=== PATIENT | male | born 1960 | race Caucasian/White ===

== ENCOUNTER 2017-03-25 20:39 | Inpatient (IN) | payer MEDICARE, MEDICAID ==
--- NOTE | 2017-03-26 02:27 | ED Physician Chart ---
ED Chief Complaint/HPI - Patient Information Date Seen:: 03/26/17 Time Seen:: 02:22 Chief Complaint:: Pneumonia History of Present Illness:: CXR at [facility] showed right lower lobe pneumonia on 03/25/17. Allergies:: Allergies Allergy/AdvReac Type Severity Reaction Status Date / Time No Known Allergies Allergy Verified 03/26/17 01:39 Vitals:: Vital Signs - 8 hr 03/25/17 23:00 Temp 98.2 F HR 90 RR 20 BP 107/72 O2 Sat % 94 ED Septic Shock - <6hrs of presentation: Vital Signs: Vital Signs - 8 hr 03/25/17 23:00 Temp 98.2 F HR 90 RR 20 BP 107/72 O2 Sat % 94
[2017-03-26] MEDS ORDERED: Azithromycin 500 MG in Sodium Chloride 0.9% 250 ML IV SCH ×2 (02:30→18:00)
[2017-03-26 02:33] LABS: MANUAL DIFF REQUIRED? YES; MEAN PLATELET VOLUME 8.2 fl
[2017-03-26 02:35] LABS: HEMATOCRIT 35.8 % (41.0-60); HEMOGLOBIN 12.4 gm/dL (12-16); MEAN CELL VOLUME 97.3 fl (80-99); MEAN CORPUSCULAR HEMOGLOBIN 33.8 pg (26.0-30.0); MEAN CORPUSCULAR HGB CONC 34.7 pg (28.0-36.0); PLATELET COUNT 342 Th/cmm (150-400); RED BLOOD COUNT 3.68 Mil/cmm (4.30-5.70); RED CELL DISTRIBUTION WIDTH 12.1 % (11.5-20.0); WHITE BLOOD COUNT 7.2 Th/cmm (4.8-10.8)
[2017-03-26 02:47] LABS: ALB/GLOB RATIO 1.1 (1.0-1.8); ALBUMIN 3.1 gm/dL (4.2-5.5); ALKALINE PHOSPHATASE 41 U/L (34-104); ANION GAP 14.7 (7.0-16.0); BILIRUBIN,TOTAL 0.2 mg/dL (0.3-1.0); BUN - UREA NITROGEN 13 mg/dL (7-25); CALCIUM SERUM 8.1 mg/dL (8.6-10.3); CARBON DIOXIDE 19.5 mEq/L (21.0-31.0); CHLORIDE 101 mEq/L (98-107); CREATININE - SERUM 0.7 mg/dL (0.7-1.3); GFR AFRICAN-AMERICAN > 60.0 ml/min (>90); GFR NON AFRICAN-AMERICAN > 60.0 ml/min; GLUCOSE 90 mg/dL (70-105); POTASSIUM SERUM 3.2 mEq/L (3.5-5.1); SGOT 20 U/L (13-39); SGPT/ALT 19 U/L (7-52); SODIUM SERUM 132 mEq/L (136-145)
[2017-03-26 03:13] LABS: BAND NEUTROPHILE 7 % (0-10); LYMPHOCYTE 30 % (20-50); NEUTROPHILS 47 % (40-80); TOTAL CELLS COUNTED 100
[2017-03-26 03:14] LABS: EOSINOPHIL 2 % (0-5); MONOCYTE 14 % (2-10); PLATELET ESTIMATE ADEQUATE (NORMAL)
[2017-03-26] MEDS ORDERED: Albuterol/Ipratropium Neb 3 ML AERS HHN ONE ×2 (03:58→04:04)
[2017-03-26] MEDS: cefTRIAXone 1 GM in Sodium Chloride 0.9% 50 ML IV SCH (06:13)
[2017-03-26] MEDS: Albuterol/Ipratropium Neb 3 ML AERS HHN SCH ×6 (07:11→19:43)
[2017-03-26 07:57] LABS: EOSINOPHILE ABSOLUTE 0.1 Th/cmm (0.1-0.4); HEMATOCRIT 36.6 % (41.0-60); HEMOGLOBIN 12.4 gm/dL (12-16); LYMPHOCYTE ABSOLUTE 2.3 Th/cmm (1.5-3.0); MEAN CORPUSCULAR HEMOGLOBIN 33.2 pg (26.0-30.0); MEAN CORPUSCULAR HGB CONC 33.9 pg (28.0-36.0); MEAN PLATELET VOLUME 7.9 fl; MONOCYTE ABSOLUTE 1.4 Th/cmm (0.3-1.0); NEUTROPHILE ABSOLUTE 3.7 Th/cmm (1.8-8.0); PLATELET COUNT 347 Th/cmm (150-400); RED BLOOD COUNT 3.73 Mil/cmm (4.30-5.70); RED CELL DISTRIBUTION WIDTH 12.2 % (11.5-20.0); WHITE BLOOD COUNT 7.5 Th/cmm (4.8-10.8)
[2017-03-26 08:12] LABS: ANION GAP 10.1 (7.0-16.0); BUN - UREA NITROGEN 11 mg/dL (7-25); CALCIUM SERUM 8.1 mg/dL (8.6-10.3); CHLORIDE 103 mEq/L (98-107); CHOLESTEROL 110 mg/dL (<200); CREATININE - SERUM 0.7 mg/dL (0.7-1.3); GFR AFRICAN-AMERICAN > 60.0 ml/min (>90); GFR NON AFRICAN-AMERICAN > 60.0 ml/min; GLUCOSE 80 mg/dL (70-105); HDL -HIGH DENSITY LIPOPROTEIN 27 mg/dL (23-92); POTASSIUM SERUM 3.1 mEq/L (3.5-5.1); SODIUM SERUM 134 mEq/L (136-145); TRIGLYCERIDES 126 mg/dL (<150)
[2017-03-26] MEDS ORDERED: Potassium Chloride 20 mEq ER Tab PO ONE ×3 (08:29→17:00)
--- NOTE | 2017-03-26 16:26 | History and Physical ---
History of Present Illness - HPI Vital Signs: Last Vital Signs Temp 98.6 F 03/26/17 15:08 Pulse 89 03/26/17 15:08 Resp 14 03/26/17 15:08 BP 109/71 03/26/17 15:08 Pulse Ox 93 03/26/17 15:08 Family Medical History - Family Member Mother History Unknown: Yes - Medications Home Medications: Home Medication Medication Instructions Recorded Type Acetaminophen [Tylenol Extra 1,000 mg PO Q4HR PRN 03/26/17 History Strength] Acetaminophen [Tylenol] 650 mg PO Q4HR PRN 03/26/17 History Al Hyd/Mg Hyd/Simethicone [Maalox] 30 ml PO Q6HR PRN 03/26/17 History Bisacodyl [Dulcolax 10 Mg Supp] 10 mg RC PRN PRN 03/26/17 History Carbamazepine [Tegretol] 200 mg PO BID 03/26/17 History Cetirizine HCl [Zyrtec] 10 mg PO DAILY 03/26/17 History Divalproex ER [Depakote ER] 500 mg PO BID 03/26/17 History Docusate Sodium [Colace] 250 mg PO DAILY 03/26/17 History Fish Oil [[place] 3] 1,000 mg PO DAILY 03/26/17 History Fleet Enema [Fleet Enema] 135 ml RC Q48H PRN 03/26/17 History Haloperidol [Haldol*] 2.5 mg PO BID 03/26/17 History Magnesium Hydroxide [Milk of 30 ml PO HS PRN 03/26/17 History Magnesia] OLANZapine [ZyPREXA] 10 mg PO TID 03/26/17 History Psyllium Husk [Metamucil] 1 tbs PO BID 03/26/17 History - Allergies Allergies/Adverse Reactions: Allergies Allergy/AdvReac Type Severity Reaction Status Date / Time No Known Allergies Allergy Verified 03/26/17 01:39
[2017-03-26] MEDS ORDERED: Albuterol Nebulizer 2.5mg/3mL HHN PRN (16:34)
[2017-03-26] MEDS ORDERED: cefTRIAXone 1 GM in Sodium Chloride 0.9% 50 ML IV SCH (17:00)
[2017-03-26 19:51] LABS: INF A SCREEN NEG FOR INF A
[2017-03-26 19:52] LABS: INF B SCREEN NEG FOR INF B
[2017-03-26] MEDS ORDERED: Fleet Enema 135 mL RC PRN (21:36)
[2017-03-26] MEDS ORDERED: Acetaminophen 500 MG TAB PO PRN (21:36)
[2017-03-26] MEDS ORDERED: Maalox 30 mL Cup PO PRN (21:36)
[2017-03-26] MEDS ORDERED: Magnesium Hydroxide (MOM) 30 mL UDC PO PRN (21:36)
--- NOTE | 2017-03-27 04:22 | Consultation ---
DATE OF CONSULTATION: 03/26/2017 INFECTIOUS DISEASE CONSULTATION REFERRING PHYSICIAN: Ana Bourne MD. REASON FOR CONSULTATION: Right lower lobe pneumonia. HISTORY OF PRESENT ILLNESS: The patient is a 56-year-old male with a past medical history of dementia, depression, seizure disorder, brought in from nursing facility for chest x-ray, showing right lower lobe pneumonia. Otherwise, the patient is a poor historian, unable to give any history. On initial evaluation, the patient's temperature was 98.2 degree Fahrenheit and WBC count was 7200 with a normal differential. The patient was started on Rocephin and Zithromax. ID consult was called for antibiotic management. PAST MEDICAL HISTORY: Includes depression, dementia, anxiety disorder, and seizure disorder. ALLERGIES: NKDA. MEDICATIONS: As per medication reconciliation sheet. Antibiotic franklin, the patient is receiving Rocephin 1 gram IV daily and azithromycin 500 mg IV daily. SOCIAL HISTORY: The patient lives at nursing facility. No history of smoking, alcohol, or drug use. FAMILY HISTORY: Not available. REVIEW OF SYSTEMS: The patient is unable to give any history, but as per the records there is no fever documented. PHYSICAL EXAMINATION: VITAL SIGNS: Current vital signs shows temperature is 98.2, pulse 97, respirations 18, blood pressure 113/73, and oxygen saturation 93%. GENERAL: The patient is comfortable, lying in the bed, not in acute distress, well-nourished, and well-developed. HEENT: Head is normocephalic and atraumatic. Oral cavity moist. [employer] tongue. Eyes: No pallor, no icterus. Pupils: PERRLA, EOMI. NECK: Supple, no JVD, no carotid bruit. Trachea midline. CHEST: Bilateral breath sounds. Occasional crackles on the right side. HEART: S1 and S2 within normal limits. Regular rhythm. No murmur. No gallop. ABDOMEN: Soft, nontender, and nondistended. Bowel sounds present. EXTREMITIES: No cyanosis, no clubbing, and no edema. NEUROLOGIC: Alert and awake. Communications limited. LABORATORY DATA: Current lab shows WBC count of 7500, hemoglobin 12.4, hematocrit 36.6, and platelets are 347,000. Sodium is 134, potassium 3.1, chloride 103, bicarbonate is 24, BUN is 11, creatinine 0.7, and glucose is 80. valproate 45.7,carbamazepine 7.2. Influenza A and B is negative for influenza. IMPRESSION: 1. Right lower lobe pneumonia as per the chest x-ray report from the nursing facility. 2. Seizure disorder. 3. Dementia. 4. Depression. RECOMMENDATIONS AND PLAN: Continue Rocephin and Zithromax at this time. Antibiotics may be changed to Augmentin 875 mg p.o. twice a day for 10 days and Zithromax 500 mg IV or p.o. for 3 days from now. We will check the chest x-ray. Thank you, Dr. Bourne, for involving me in taking care of this patient. JOB# [id number] MEGAN
[2017-03-27] MEDS: Azithromycin 500 MG in Sodium Chloride 0.9% 250 ML IV SCH (05:11)
[2017-03-27 07:05] LABS: EOSINOPHILE ABSOLUTE 0.1 Th/cmm (0.1-0.4); HEMATOCRIT 34.9 % (41.0-60); LYMPHOCYTE ABSOLUTE 2.3 Th/cmm (1.5-3.0); MANUAL DIFF REQUIRED? YES; MEAN CELL VOLUME 97.9 fl (80-99); MEAN CORPUSCULAR HEMOGLOBIN 33.7 pg (26.0-30.0); MEAN CORPUSCULAR HGB CONC 34.5 pg (28.0-36.0); MEAN PLATELET VOLUME 8.3 fl; MONOCYTE ABSOLUTE 1.6 Th/cmm (0.3-1.0); NEUTROPHILE ABSOLUTE 4.7 Th/cmm (1.8-8.0); PLATELET COUNT 345 Th/cmm (150-400); RED BLOOD COUNT 3.56 Mil/cmm (4.30-5.70); WHITE BLOOD COUNT 8.7 Th/cmm (4.8-10.8)
[2017-03-27 07:30] LABS: ANION GAP 10.6 (7.0-16.0); BUN - UREA NITROGEN 8 mg/dL (7-25); CALCIUM SERUM 8.4 mg/dL (8.6-10.3); CARBON DIOXIDE 23.9 mEq/L (21.0-31.0); CHLORIDE 105 mEq/L (98-107); CREATININE - SERUM 0.5 mg/dL (0.7-1.3); GFR AFRICAN-AMERICAN > 60.0 ml/min (>90); GFR NON AFRICAN-AMERICAN > 60.0 ml/min; GLUCOSE 96 mg/dL (70-105); POTASSIUM SERUM 3.5 mEq/L (3.5-5.1); SODIUM SERUM 136 mEq/L (136-145)
[2017-03-27] MEDS: Albuterol/Ipratropium Neb 3 ML AERS HHN SCH ×4 (07:38→18:41)
[2017-03-27] MEDS: Fish Oil 1,000 MG SGL PO SCH (09:45)
[2017-03-27] MEDS: cefTRIAXone 1 GM in Sodium Chloride 0.9% 50 ML IV SCH (10:56)
--- NOTE | 2017-03-27 14:33 | History and Physical ---
History of Present Illness - HPI Chief Complaint: PNA HPI: THIS IS A 56 YEAR OLD MALE LONG-TERM RESIDENT ADMITTED TO [facility] DUE TO CXR SHOWING PNA AT THE SNF. PATIENT HAD X1 EPISODE OF FEVER AT THE SNF. Vital Signs: Last Vital Signs Temp 97.8 F 03/27/17 04:00 Pulse 70 03/27/17 13:39 Resp 18 03/27/17 13:39 BP 110/64 03/27/17 04:00 Pulse Ox 95 03/27/17 13:39 Past Medical History Other History: DEPRESSION DEMENTIA ANXIETY SEIZURE Family Medical History - Family Member Mother History Unknown: Yes Social History Smoke: No Alcohol: None Drugs: None Lives: Group Home - Medications Home Medications: Home Medication Medication Instructions Recorded Type Acetaminophen [Tylenol Extra 1,000 mg PO Q4HR PRN 03/26/17 History Strength] Acetaminophen [Tylenol] 650 mg PO Q4HR PRN 03/26/17 History Al Hyd/Mg Hyd/Simethicone [Maalox] 30 ml PO Q6HR PRN 03/26/17 History Bisacodyl [Dulcolax 10 Mg Supp] 10 mg RC PRN PRN 03/26/17 History Carbamazepine [Tegretol] 200 mg PO BID 03/26/17 History Cetirizine HCl [Zyrtec] 10 mg PO DAILY 03/26/17 History Divalproex ER [Depakote ER] 500 mg PO BID 03/26/17 History Docusate Sodium [Colace] 250 mg PO DAILY 03/26/17 History Fish Oil [[place]ur[place] 3] 1,000 mg PO DAILY 03/26/17 History Fleet Enema [Fleet Enema] 135 ml RC Q48H PRN 03/26/17 History Haloperidol [Haldol*] 2.5 mg PO BID 03/26/17 History Magnesium Hydroxide [Milk of 30 ml PO HS PRN 03/26/17 History Magnesia] OLANZapine [ZyPREXA] 10 mg PO TID 03/26/17 History Psyllium Husk [Metamucil] 1 tbs PO BID 03/26/17 History - Allergies Allergies/Adverse Reactions: Allergies Allergy/AdvReac Type Severity Reaction Status Date / Time No Known Allergies Allergy Verified 03/26/17 01:39 Review of Systems - Review of Systems Constitutional: Report: Weakness Eyes: Report: No Significant ENT: Report: No Significant Respiratory: Report: Cough Cardiovascular: Report: No Significant Gastrointestinal: Report: No Significant Genitourinary: Report: No Significant Musculoskeletal: Report: No Significant Skin: Report: No Significant Neurological: Report: Weakness - Lab Results All Lab Results last 24 hours: Laboratory Results - last 24 hr 03/26/17 03/27/17 03/27/17 18:28 05:00 05:00 WBC 8.7 RBC 3.56 L Hgb 12.0 Hct 34.9 L MCV 97.9 MCH 33.7 H MCHC Differential 34.5 RDW 12.0 Plt Count 345 MPV 8.3 Sodium 136 Potassium 3.5 Chloride 105 Carbon Dioxide 23.9 Anion Gap 10.6 BUN 8 Creatinine 0.5 L Est GFR ( Amer) > 60.0 Est GFR (Non-Af Amer) > 60.0 BUN/Creatinine Ratio 16.0 Glucose 96 Calcium 8.4 L Influenza A (Rapid) NEG FOR INF A Influenza B (Rapid) NEG FOR INF B - Assessment Assessment: RIGHT LOWER LOBE PNA SEIZURE DEMENTIA DEPRESSION - Plan Plan: CONTINUE IV ROCEPHIN AND ZITHROMAX SUPPLEMENTAL OXYGEN AND BRONCHODILATORS CONTINUE CURRENT ORDERS.
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
--- NOTE | 2017-03-27 23:52 | Infectious Disease Prog Note ---
Infectious Disease Subjective - Review of Systems Service Date: 03/27/17 Subjective: no fever. no SOB. Infectious Disease Objective - Results Result Diagrams: 03/27/17 05:00 03/27/17 05:00 Recent Labs: Laboratory Last Values WBC 8.7 Th/cmm (4.8-10.8) 03/27/17 05:00 RBC 3.56 Mil/cmm (4.30-5.70) L 03/27/17 05:00 Hgb 12.0 gm/dL (12-16) 03/27/17 05:00 Hct 34.9 % (41.0-60) L 03/27/17 05:00 MCV 97.9 fl (80-99) 03/27/17 05:00 MCH 33.7 pg (26.0-30.0) H 03/27/17 05:00 MCHC Differential 34.5 pg (28.0-36.0) 03/27/17 05:00 RDW 12.0 % (11.5-20.0) 03/27/17 05:00 Plt Count 345 Th/cmm (150-400) 03/27/17 05:00 MPV 8.3 fl 03/27/17 05:00 Band Neutrophils % 7 % (0-10) 03/26/17 02:10 Neutrophils (Manual) 47 % (40-80) 03/26/17 02:10 Lymphocytes 30 % (20-50) 03/26/17 02:10 Monocytes 14 % (2-10) H 03/26/17 02:10 Eosinophils 2 % (0-5) 03/26/17 02:10 Platelet Estimate ADEQUATE (NORMAL) 03/26/17 02:10 Sodium 136 mEq/L (136-145) 03/27/17 05:00 Potassium 3.5 mEq/L (3.5-5.1) 03/27/17 05:00 Chloride 105 mEq/L (98-107) 03/27/17 05:00 Carbon Dioxide 23.9 mEq/L (21.0-31.0) 03/27/17 05:00 Anion Gap 10.6 (7.0-16.0) 03/27/17 05:00 BUN 8 mg/dL (7-25) 03/27/17 05:00 Creatinine 0.5 mg/dL (0.7-1.3) L 03/27/17 05:00 Est GFR ( Amer) > 60.0 ml/min (>90) 03/27/17 05:00 Est GFR (Non-Af Amer) > 60.0 ml/min 03/27/17 05:00 BUN/Creatinine Ratio 16.0 03/27/17 05:00 Glucose 96 mg/dL (70-105) 03/27/17 05:00 Calcium 8.4 mg/dL (8.6-10.3) L 03/27/17 05:00 Total Bilirubin 0.2 mg/dL (0.3-1.0) L 03/26/17 02:10 AST 20 U/L (13-39) 03/26/17 02:10 ALT 19 U/L (7-52) 03/26/17 02:10 Alkaline Phosphatase 41 U/L (34-104) 03/26/17 02:10 Total Protein 6.0 gm/dL (6.0-8.3) 03/26/17 02:10 Albumin 3.1 gm/dL (4.2-5.5) L 03/26/17 02:10 Globulin 2.9 gm/dL 03/26/17 02:10 Albumin/Globulin Ratio 1.1 (1.0-1.8) 03/26/17 02:10 Triglycerides 126 mg/dL (<150) 03/26/17 07:40 Cholesterol 110 mg/dL (<200) 03/26/17 07:40 LDL Cholesterol Direct 68 mg/dL (75-193) L 03/26/17 07:40 HDL Cholesterol 27 mg/dL (23-92) 03/26/17 07:40 TSH 1.17 uIU/ml (0.34-5.60) 03/26/17 07:40 Valproic Acid 45.7 ug/mL (50.0-100.0) L 03/26/17 02:10 Carbamazepine 7.2 ug/ml (4.0-12.0) 03/26/17 02:10 Influenza A (Rapid) NEG FOR INF A 03/26/17 18:28 Influenza B (Rapid) NEG FOR INF B 03/26/17 18:28 - Physical Exam Vitals and I&O: Vital Signs Temp 99 F 01/04/18 20:00 Pulse 97 03/27/17 20:00 Resp 18 03/27/17 20:00 BP 105/63 03/27/17 20:00 Pulse Ox 94 03/27/17 20:00 Intake & Output 03/27/17 03/27/17 03/28/17 06:59 18:59 06:59 Intake Total 500 750 Balance 500 750 Weight (lbs) 73.936 kg 73.936 kg Intake: Intake, IV Amount 250 50 Azithromycin 500 mg In 250 Sodium Chloride 0.9% 250 ml @ 250 mls/hr IV Q24HR [facility] Rx#:[id number] cefTRIAXone 1 gm In 50 Sodium Chloride 0.9% 50 ml @ 100 mls/hr IV Q24HR [facility] Rx#:[id number] Oral 250 700 Other: # Voids 2 3 # Bowel Movements 0 0 Stool Characteristics Soft Soft Formed Formed Brown Brown Active Medications: Current Medications Acetaminophen (Tylenol) 650 mg PO Q4HR PRN PRN Reason: Pain or Fever >101 Stop: 05/25/17 21:35 Last Admin: 03/27/17 09:53 Dose: 650 mg Acetaminophen (Tylenol Extra Strength) 1,000 mg PO Q4HR PRN PRN Reason: Pain (Moderate) Stop: 05/25/17 21:35 Al Hydrox/Mg Hydrox/Simethicone (Maalox) 30 ml PO Q6HR PRN PRN Reason: Heartburn Stop: 05/25/17 21:35 Albuterol Sulfate (Albuterol 2.5mg/3ml Neb Ud) 2.5 mg HHN Q4HRT PRN PRN Reason: Wheezing Stop: 05/25/17 16:33 Last Admin: 03/26/17 23:09 Dose: 2.5 mg Albuterol/Ipratropium (Duoneb Neb) 3 ml HHN [id number] JUANITA Stop: 05/25/17 06:59 Last Admin: 03/27/17 18:41 Dose: 3 ml Bisacodyl (Dulcolax 10 Mg Supp) 10 mg RC PRN PRN PRN Reason: Constipation Stop: 05/25/17 21:35 Carbamazepine (Tegretol) 200 mg PO BID JUANITA PRN Reason: Protocol Stop: 05/26/17 08:59 Last Admin: 03/27/17 17:59 Dose: 200 mg Divalproex Sodium (Depakote Er) 500 mg PO BID JUANITA PRN Reason: Protocol Stop: 05/26/17 08:59 Last Admin: 03/27/17 17:59 Dose: 500 mg Docusate Sodium (Colace) 250 mg PO DAILY JUANITA Stop: 05/26/17 08:59 Last Admin: 03/27/17 09:46 Dose: 250 mg Fish Oil ([place] 3) 1,000 mg PO DAILY JUANITA Stop: 05/26/17 08:59 Last Admin: 03/27/17 09:45 Dose: 1,000 mg Haloperidol (Haldol) 2.5 mg PO BID JUANITA PRN Reason: Protocol Stop: 05/26/17 08:59 Last Admin: 03/27/17 17:59 Dose: 2.5 mg Azithromycin 500 mg/ Sodium (Chloride) 250 mls @ 250 mls/hr IV Q24HR JUANITA Stop: 05/26/17 04:59 Last Infusion: 03/27/17 06:16 Dose: Infused Ceftriaxone Sodium 1 gm/ (Sodium Chloride) 50 mls @ 100 mls/hr IV Q24HR JUANITA Stop: 05/25/17 05:59 Last Infusion: 03/27/17 12:30 Dose: Infused Loratadine (Claritin) 10 mg PO DAILY JUANITA Stop: 05/26/17 08:59 Last Admin: 03/27/17 09:46 Dose: 10 mg Lorazepam (Ativan) 1 mg IVP Q4HR PRN; Protocol PRN Reason: Agitation Stop: 05/25/17 16:35 Last Admin: 03/27/17 00:11 Dose: 1 mg Magnesium Hydroxide (Milk Of Magnesia) 30 ml PO HS PRN PRN Reason: Constipation Stop: 05/25/17 21:35 Sodium Phosphate (Fleet Enema) 135 ml RC Q48H PRN PRN Reason: Constipation Stop: 05/25/17 21:35 General: no acute distress, well developed, well nourished HEENT: atraumatic, normocephalic, PERRLA Neck: supple, no thyromegaly Cardiovascular: S1S2, regular Lungs: clear to percussion, rhonchi Abdomen: soft, no tender, no distended Extremities: no cyanosis, no clubbing, no edema Neurological: other (confused) Infectious Disease Assmt/Plan - Assessment Assessment: IMPRESSION: 1. Right lower lobe pneumonia as per the chest x-ray report from the nursing facility. 2. Seizure disorder. 3. Dementia. 4. Depression. RECOMMENDATIONS AND PLAN: Continue Rocephin and Zithromax at this time. Antibiotics may be changed to Augmentin 875 mg p.o. twice a day for 10 days and Zithromax 500 mg IV or p.o. for 2 days from now.
[2017-03-28] MEDS: Azithromycin 500 MG in Sodium Chloride 0.9% 250 ML IV SCH (04:26)
[2017-03-28] MEDS: cefTRIAXone 1 GM in Sodium Chloride 0.9% 50 ML IV SCH (06:14)
[2017-03-28] MEDS: Albuterol/Ipratropium Neb 3 ML AERS HHN SCH ×4 (08:03→18:32)
[2017-03-28] MEDS: Fish Oil 1,000 MG SGL PO SCH (09:11)
[2017-03-28] MEDS ORDERED: Sodium Chloride 0.9% 1,000 ML IV ONE (11:53)
--- NOTE | 2017-03-28 12:20 | Internal Medicine Prog Note ---
Internal Medicine Subjective - Subjective Service Date: 03/28/17 Patient seen and examined:: with staff Patient is:: awake Per staff patient has:: no adverse event Internal Medicine Objective - Results Result Diagrams: 03/27/17 05:00 03/27/17 05:00 Recent Labs: Laboratory Last Values WBC 8.7 Th/cmm (4.8-10.8) 03/27/17 05:00 RBC 3.56 Mil/cmm (4.30-5.70) L 03/27/17 05:00 Hgb 12.0 gm/dL (12-16) 03/27/17 05:00 Hct 34.9 % (41.0-60) L 03/27/17 05:00 MCV 97.9 fl (80-99) 03/27/17 05:00 MCH 33.7 pg (26.0-30.0) H 03/27/17 05:00 MCHC Differential 34.5 pg (28.0-36.0) 03/27/17 05:00 RDW 12.0 % (11.5-20.0) 03/27/17 05:00 Plt Count 345 Th/cmm (150-400) 03/27/17 05:00 MPV 8.3 fl 03/27/17 05:00 Band Neutrophils % 7 % (0-10) 03/26/17 02:10 Neutrophils (Manual) 47 % (40-80) 03/26/17 02:10 Lymphocytes 30 % (20-50) 03/26/17 02:10 Monocytes 14 % (2-10) H 03/26/17 02:10 Eosinophils 2 % (0-5) 03/26/17 02:10 Platelet Estimate ADEQUATE (NORMAL) 03/26/17 02:10 Sodium 136 mEq/L (136-145) 03/27/17 05:00 Potassium 3.5 mEq/L (3.5-5.1) 03/27/17 05:00 Chloride 105 mEq/L (98-107) 03/27/17 05:00 Carbon Dioxide 23.9 mEq/L (21.0-31.0) 03/27/17 05:00 Anion Gap 10.6 (7.0-16.0) 03/27/17 05:00 BUN 8 mg/dL (7-25) 03/27/17 05:00 Creatinine 0.5 mg/dL (0.7-1.3) L 03/27/17 05:00 Est GFR ( Amer) > 60.0 ml/min (>90) 03/27/17 05:00 Est GFR (Non-Af Amer) > 60.0 ml/min 03/27/17 05:00 BUN/Creatinine Ratio 16.0 03/27/17 05:00 Glucose 96 mg/dL (70-105) 03/27/17 05:00 Calcium 8.4 mg/dL (8.6-10.3) L 03/27/17 05:00 Total Bilirubin 0.2 mg/dL (0.3-1.0) L 03/26/17 02:10 AST 20 U/L (13-39) 03/26/17 02:10 ALT 19 U/L (7-52) 03/26/17 02:10 Alkaline Phosphatase 41 U/L (34-104) 03/26/17 02:10 Total Protein 6.0 gm/dL (6.0-8.3) 03/26/17 02:10 Albumin 3.1 gm/dL (4.2-5.5) L 03/26/17 02:10 Globulin 2.9 gm/dL 03/26/17 02:10 Albumin/Globulin Ratio 1.1 (1.0-1.8) 03/26/17 02:10 Triglycerides 126 mg/dL (<150) 03/26/17 07:40 Cholesterol 110 mg/dL (<200) 03/26/17 07:40 LDL Cholesterol Direct 68 mg/dL (75-193) L 03/26/17 07:40 HDL Cholesterol 27 mg/dL (23-92) 03/26/17 07:40 TSH 1.17 uIU/ml (0.34-5.60) 03/26/17 07:40 Valproic Acid 45.7 ug/mL (50.0-100.0) L 03/26/17 02:10 Carbamazepine 7.2 ug/ml (4.0-12.0) 03/26/17 02:10 Influenza A (Rapid) NEG FOR INF A 03/26/17 18:28 Influenza B (Rapid) NEG FOR INF B 03/26/17 18:28 - Physical Exam Vitals and I&O: Vital Signs Temp 97.8 F 03/28/17 11:48 Pulse 79 03/28/17 11:48 Resp 18 03/28/17 11:48 BP 98/49 03/28/17 11:48 Pulse Ox 93 03/28/17 11:48 Intake & Output 03/27/17 03/28/17 03/28/17 18:59 06:59 18:59 Intake Total 750 300 Balance 750 300 Weight (lbs) 163 lb 156 lb 8 oz 156 lb 8 oz Intake: Intake, IV Amount 50 300 Azithromycin 500 mg In 250 Sodium Chloride 0.9% 250 ml @ 250 mls/hr IV Q24HR [facility] Rx#:[id number] cefTRIAXone 1 gm In 50 50 Sodium Chloride 0.9% 50 ml @ 100 mls/hr IV Q24HR [facility] Rx#:[id number] Oral 700 Other: # Voids 3 2 # Bowel Movements 0 1 Stool Characteristics Soft Soft Soft Formed Formed Formed Brown Brown Brown Active Medications: Current Medications Acetaminophen (Tylenol) 650 mg PO Q4HR PRN PRN Reason: Pain or Fever >101 Stop: 05/25/17 21:35 Last Admin: 03/27/17 09:53 Dose: 650 mg Acetaminophen (Tylenol Extra Strength) 1,000 mg PO Q4HR PRN PRN Reason: Pain (Moderate) Stop: 05/25/17 21:35 Al Hydrox/Mg Hydrox/Simethicone (Maalox) 30 ml PO Q6HR PRN PRN Reason: Heartburn Stop: 05/25/17 21:35 Albuterol Sulfate (Albuterol 2.5mg/3ml Neb Ud) 2.5 mg HHN Q4HRT PRN PRN Reason: Wheezing Stop: 05/25/17 16:33 Last Admin: 03/26/17 23:09 Dose: 2.5 mg Albuterol/Ipratropium (Duoneb Neb) 3 ml HHN [id number] [facility] Stop: 05/25/17 06:59 Last Admin: 03/28/17 08:03 Dose: 3 ml Bisacodyl (Dulcolax 10 Mg Supp) 10 mg RC PRN PRN PRN Reason: Constipation Stop: 05/25/17 21:35 Carbamazepine (Tegretol) 200 mg PO BID [facility] PRN Reason: Protocol Stop: 03/05/18 08:59 Last Admin: 03/28/17 09:12 Dose: 200 mg Divalproex Sodium (Depakote Er) 500 mg PO BID JUANITA PRN Reason: Protocol Stop: 05/26/17 08:59 Last Admin: 03/28/17 09:12 Dose: 500 mg Docusate Sodium (Colace) 250 mg PO DAILY JUANITA Stop: 05/26/17 08:59 Last Admin: 03/28/17 09:11 Dose: 250 mg Fish Oil (Flor[place] 3) 1,000 mg PO DAILY JUANITA Stop: 05/26/17 08:59 Last Admin: 03/28/17 09:11 Dose: 1,000 mg Haloperidol (Haldol) 2.5 mg PO BID JUANITA PRN Reason: Protocol Stop: 05/26/17 08:59 Last Admin: 03/28/17 09:11 Dose: 2.5 mg Azithromycin 500 mg/ Sodium (Chloride) 250 mls @ 250 mls/hr IV Q24HR JUANITA Stop: 05/26/17 04:59 Last Infusion: 03/28/17 07:30 Dose: Infused Ceftriaxone Sodium 1 gm/ (Sodium Chloride) 50 mls @ 100 mls/hr IV Q24HR JUANITA Stop: 05/25/17 05:59 Last Infusion: 03/28/17 09:12 Dose: Infused Loratadine (Claritin) 10 mg PO DAILY [facility] Stop: 05/26/17 08:59 Last Admin: 03/28/17 09:12 Dose: 10 mg Lorazepam (Ativan) 1 mg IVP Q4HR PRN; Protocol PRN Reason: Agitation Stop: 05/25/17 16:35 Last Admin: 03/27/17 00:11 Dose: 1 mg Magnesium Hydroxide (Milk Of Magnesia) 30 ml PO HS PRN PRN Reason: Constipation Stop: 05/25/17 21:35 Sodium Phosphate (Fleet Enema) 135 ml RC Q48H PRN PRN Reason: Constipation Stop: 05/25/17 21:35 General: alert HEENT: NC/AT, PERRLA Neck: Supple Lungs: CTAB Cardiovascular: RRR Abdomen: soft, non-tender, non-distended, positive bowel sound Internal Medicine Assmt/Plan - Assessment Assessment: RIGHT LOWER LOBE PNA SEIZURE DEMENTIA DEPRESSION - Plan Plan: CONTINUE IV ROCEPHIN AND ZITHROMAX SUPPLEMENTAL OXYGEN AND BRONCHODILATORS CONTINUE CURRENT ORDERS.
--- NOTE | 2017-03-28 15:02 | Infectious Disease Prog Note ---
Infectious Disease Subjective - Review of Systems Service Date: 03/28/17 Subjective: no fever. no SOB. Infectious Disease Objective - Results Result Diagrams: 03/27/17 05:00 03/27/17 05:00 Recent Labs: Laboratory Last Values WBC 8.7 Th/cmm (4.8-10.8) 03/27/17 05:00 RBC 3.56 Mil/cmm (4.30-5.70) L 03/27/17 05:00 Hgb 12.0 gm/dL (12-16) 03/27/17 05:00 Hct 34.9 % (41.0-60) L 03/27/17 05:00 MCV 97.9 fl (80-99) 03/27/17 05:00 MCH 33.7 pg (26.0-30.0) H 03/27/17 05:00 MCHC Differential 34.5 pg (28.0-36.0) 03/27/17 05:00 RDW 12.0 % (11.5-20.0) 03/27/17 05:00 Plt Count 345 Th/cmm (150-400) 03/27/17 05:00 MPV 8.3 fl 03/27/17 05:00 Band Neutrophils % 7 % (0-10) 03/26/17 02:10 Neutrophils (Manual) 47 % (40-80) 03/26/17 02:10 Lymphocytes 30 % (20-50) 03/26/17 02:10 Monocytes 14 % (2-10) H 03/26/17 02:10 Eosinophils 2 % (0-5) 03/26/17 02:10 Platelet Estimate ADEQUATE (NORMAL) 03/26/17 02:10 Sodium 136 mEq/L (136-145) 03/27/17 05:00 Potassium 3.5 mEq/L (3.5-5.1) 03/27/17 05:00 Chloride 105 mEq/L (98-107) 03/27/17 05:00 Carbon Dioxide 23.9 mEq/L (21.0-31.0) 03/27/17 05:00 Anion Gap 10.6 (7.0-16.0) 03/27/17 05:00 BUN 8 mg/dL (7-25) 03/27/17 05:00 Creatinine 0.5 mg/dL (0.7-1.3) L 03/27/17 05:00 Est GFR ( Amer) > 60.0 ml/min (>90) 03/27/17 05:00 Est GFR (Non-Af Amer) > 60.0 ml/min 03/27/17 05:00 BUN/Creatinine Ratio 16.0 03/27/17 05:00 Glucose 96 mg/dL (70-105) 03/27/17 05:00 Calcium 8.4 mg/dL (8.6-10.3) L 03/27/17 05:00 Total Bilirubin 0.2 mg/dL (0.3-1.0) L 03/26/17 02:10 AST 20 U/L (13-39) 03/26/17 02:10 ALT 19 U/L (7-52) 03/26/17 02:10 Alkaline Phosphatase 41 U/L (34-104) 03/26/17 02:10 Total Protein 6.0 gm/dL (6.0-8.3) 03/26/17 02:10 Albumin 3.1 gm/dL (4.2-5.5) L 03/26/17 02:10 Globulin 2.9 gm/dL 03/26/17 02:10 Albumin/Globulin Ratio 1.1 (1.0-1.8) 03/26/17 02:10 Triglycerides 126 mg/dL (<150) 03/26/17 07:40 Cholesterol 110 mg/dL (<200) 03/26/17 07:40 LDL Cholesterol Direct 68 mg/dL (75-193) L 03/26/17 07:40 HDL Cholesterol 27 mg/dL (23-92) 03/26/17 07:40 TSH 1.17 uIU/ml (0.34-5.60) 03/26/17 07:40 Valproic Acid 45.7 ug/mL (50.0-100.0) L 03/26/17 02:10 Carbamazepine 7.2 ug/ml (4.0-12.0) 03/26/17 02:10 Influenza A (Rapid) NEG FOR INF A 03/26/17 18:28 Influenza B (Rapid) NEG FOR INF B 03/26/17 18:28 - Physical Exam Vitals and I&O: Vital Signs Temp 97.8 F 03/28/17 11:48 Pulse 92 03/28/17 13:18 Resp 18 03/28/17 13:18 BP 98/49 03/28/17 11:48 Pulse Ox 96 03/28/17 13:18 Intake & Output 03/27/17 03/28/17 03/28/17 18:59 06:59 18:59 Intake Total 750 300 Balance 750 300 Weight (lbs) 73.936 kg 70.987 kg 70.987 kg Intake: Intake, IV Amount 50 300 Azithromycin 500 mg In 250 Sodium Chloride 0.9% 250 ml @ 250 mls/hr IV Q24HR [facility] Rx#:[id number] cefTRIAXone 1 gm In 50 50 Sodium Chloride 0.9% 50 ml @ 100 mls/hr IV Q24HR [facility] Rx#:[id number] Oral 700 Other: # Voids 3 2 # Bowel Movements 0 1 Stool Characteristics Soft Soft Soft Formed Formed Formed Brown Brown Brown Active Medications: Current Medications Acetaminophen (Tylenol) 650 mg PO Q4HR PRN PRN Reason: Pain or Fever >101 Stop: 05/25/17 21:35 Last Admin: 03/27/17 09:53 Dose: 650 mg Acetaminophen (Tylenol Extra Strength) 1,000 mg PO Q4HR PRN PRN Reason: Pain (Moderate) Stop: 05/25/17 21:35 Al Hydrox/Mg Hydrox/Simethicone (Maalox) 30 ml PO Q6HR PRN PRN Reason: Heartburn Stop: 05/25/17 21:35 Albuterol Sulfate (Albuterol 2.5mg/3ml Neb Ud) 2.5 mg HHN Q4HRT PRN PRN Reason: Wheezing Stop: 05/25/17 16:33 Last Admin: 03/26/17 23:09 Dose: 2.5 mg Albuterol/Ipratropium (Duoneb Neb) 3 ml HHN [id number] JUANITA Stop: 05/25/17 06:59 Last Admin: 03/28/17 13:17 Dose: 3 ml Bisacodyl (Dulcolax 10 Mg Supp) 10 mg RC PRN PRN PRN Reason: Constipation Stop: 05/25/17 21:35 Carbamazepine (Tegretol) 200 mg PO BID JUANITA PRN Reason: Protocol Stop: 05/26/17 08:59 Last Admin: 03/28/17 09:12 Dose: 200 mg Divalproex Sodium (Depakote Er) 500 mg PO BID JUANITA PRN Reason: Protocol Stop: 05/26/17 08:59 Last Admin: 03/28/17 09:12 Dose: 500 mg Docusate Sodium (Colace) 250 mg PO DAILY JUANITA Stop: 05/26/17 08:59 Last Admin: 03/28/17 09:11 Dose: 250 mg Fish Oil ([place] 3) 1,000 mg PO DAILY JUANITA Stop: 05/26/17 08:59 Last Admin: 03/28/17 09:11 Dose: 1,000 mg Haloperidol (Haldol) 2.5 mg PO BID JUANITA PRN Reason: Protocol Stop: 05/26/17 08:59 Last Admin: 03/28/17 09:11 Dose: 2.5 mg Azithromycin 500 mg/ Sodium (Chloride) 250 mls @ 250 mls/hr IV Q24HR JUANITA Stop: 05/26/17 04:59 Last Infusion: 03/28/17 07:30 Dose: Infused Ceftriaxone Sodium 1 gm/ (Sodium Chloride) 50 mls @ 100 mls/hr IV Q24HR JUANITA Stop: 05/25/17 05:59 Last Infusion: 03/28/17 09:12 Dose: Infused Loratadine (Claritin) 10 mg PO DAILY JUANITA Stop: 05/26/17 08:59 Last Admin: 03/28/17 09:12 Dose: 10 mg Lorazepam (Ativan) 1 mg IVP Q4HR PRN; Protocol PRN Reason: Agitation Stop: 05/25/17 16:35 Last Admin: 03/27/17 00:11 Dose: 1 mg Magnesium Hydroxide (Milk Of Magnesia) 30 ml PO HS PRN PRN Reason: Constipation Stop: 05/25/17 21:35 Sodium Phosphate (Fleet Enema) 135 ml RC Q48H PRN PRN Reason: Constipation Stop: 05/25/17 21:35 General: no acute distress, well developed, well nourished HEENT: atraumatic, normocephalic, PERRLA, EOMI, moist mucous membrane Neck: supple, no thyromegaly, no lymphadenopathy Cardiovascular: S1S2, regular Lungs: clear to auscultation bilaterally, clear to percussion Abdomen: soft, no tender, no distended Extremities: no cyanosis, no clubbing, no edema Neurological: awake, alert, oriented Infectious Disease Assmt/Plan - Assessment Assessment: IMPRESSION: 1. Right lower lobe pneumonia as per the chest x-ray report from the nursing facility. 2. Seizure disorder. 3. Dementia. 4. Depression. RECOMMENDATIONS AND PLAN: Continue Rocephin and Zithromax at this time. Antibiotics may be changed to Augmentin 875 mg p.o. twice a day for 10 days and Zithromax 500 mg IV or p.o. for 2 days from now.
--- NOTE | 2017-03-28 15:03 | Infectious Disease Prog Note ---
Infectious Disease Subjective - Review of Systems Service Date: 03/28/17 Subjective: no fever. no SOB. Infectious Disease Objective - Results Result Diagrams: 03/27/17 05:00 03/27/17 05:00 Recent Labs: Laboratory Last Values WBC 8.7 Th/cmm (4.8-10.8) 03/27/17 05:00 RBC 3.56 Mil/cmm (4.30-5.70) L 03/27/17 05:00 Hgb 12.0 gm/dL (12-16) 03/27/17 05:00 Hct 34.9 % (41.0-60) L 03/27/17 05:00 MCV 97.9 fl (80-99) 03/27/17 05:00 MCH 33.7 pg (26.0-30.0) H 03/27/17 05:00 MCHC Differential 34.5 pg (28.0-36.0) 03/27/17 05:00 RDW 12.0 % (11.5-20.0) 03/27/17 05:00 Plt Count 345 Th/cmm (150-400) 03/27/17 05:00 MPV 8.3 fl 03/27/17 05:00 Band Neutrophils % 7 % (0-10) 03/26/17 02:10 Neutrophils (Manual) 47 % (40-80) 03/26/17 02:10 Lymphocytes 30 % (20-50) 03/26/17 02:10 Monocytes 14 % (2-10) H 03/26/17 02:10 Eosinophils 2 % (0-5) 03/26/17 02:10 Platelet Estimate ADEQUATE (NORMAL) 03/26/17 02:10 Sodium 136 mEq/L (136-145) 03/27/17 05:00 Potassium 3.5 mEq/L (3.5-5.1) 03/27/17 05:00 Chloride 105 mEq/L (98-107) 03/27/17 05:00 Carbon Dioxide 23.9 mEq/L (21.0-31.0) 03/27/17 05:00 Anion Gap 10.6 (7.0-16.0) 03/27/17 05:00 BUN 8 mg/dL (7-25) 03/27/17 05:00 Creatinine 0.5 mg/dL (0.7-1.3) L 03/27/17 05:00 Est GFR ( Amer) > 60.0 ml/min (>90) 03/27/17 05:00 Est GFR (Non-Af Amer) > 60.0 ml/min 03/27/17 05:00 BUN/Creatinine Ratio 16.0 03/27/17 05:00 Glucose 96 mg/dL (70-105) 03/27/17 05:00 Calcium 8.4 mg/dL (8.6-10.3) L 03/27/17 05:00 Total Bilirubin 0.2 mg/dL (0.3-1.0) L 03/26/17 02:10 AST 20 U/L (13-39) 03/26/17 02:10 ALT 19 U/L (7-52) 03/26/17 02:10 Alkaline Phosphatase 41 U/L (34-104) 03/26/17 02:10 Total Protein 6.0 gm/dL (6.0-8.3) 03/26/17 02:10 Albumin 3.1 gm/dL (4.2-5.5) L 03/26/17 02:10 Globulin 2.9 gm/dL 03/26/17 02:10 Albumin/Globulin Ratio 1.1 (1.0-1.8) 03/26/17 02:10 Triglycerides 126 mg/dL (<150) 03/26/17 07:40 Cholesterol 110 mg/dL (<200) 03/26/17 07:40 LDL Cholesterol Direct 68 mg/dL (75-193) L 03/26/17 07:40 HDL Cholesterol 27 mg/dL (23-92) 03/26/17 07:40 TSH 1.17 uIU/ml (0.34-5.60) 03/26/17 07:40 Valproic Acid 45.7 ug/mL (50.0-100.0) L 03/26/17 02:10 Carbamazepine 7.2 ug/ml (4.0-12.0) 03/26/17 02:10 Influenza A (Rapid) NEG FOR INF A 03/26/17 18:28 Influenza B (Rapid) NEG FOR INF B 03/26/17 18:28 - Physical Exam Vitals and I&O: Vital Signs Temp 97.8 F 03/28/17 11:48 Pulse 92 03/28/17 13:18 Resp 18 03/28/17 13:18 BP 98/49 03/28/17 11:48 Pulse Ox 96 03/28/17 13:18 Intake & Output 03/27/17 03/28/17 03/28/17 18:59 06:59 18:59 Intake Total 750 300 Balance 750 300 Weight (lbs) 73.936 kg 70.987 kg 70.987 kg Intake: Intake, IV Amount 50 300 Azithromycin 500 mg In 250 Sodium Chloride 0.9% 250 ml @ 250 mls/hr IV Q24HR [facility] Rx#:[id number] cefTRIAXone 1 gm In 50 50 Sodium Chloride 0.9% 50 ml @ 100 mls/hr IV Q24HR [facility] Rx#:[id number] Oral 700 Other: # Voids 3 2 # Bowel Movements 0 1 Stool Characteristics Soft Soft Soft Formed Formed Formed Brown Brown Brown Active Medications: Current Medications Acetaminophen (Tylenol) 650 mg PO Q4HR PRN PRN Reason: Pain or Fever >101 Stop: 05/25/17 21:35 Last Admin: 03/27/17 09:53 Dose: 650 mg Acetaminophen (Tylenol Extra Strength) 1,000 mg PO Q4HR PRN PRN Reason: Pain (Moderate) Stop: 05/25/17 21:35 Al Hydrox/Mg Hydrox/Simethicone (Maalox) 30 ml PO Q6HR PRN PRN Reason: Heartburn Stop: 05/25/17 21:35 Albuterol Sulfate (Albuterol 2.5mg/3ml Neb Ud) 2.5 mg HHN Q4HRT PRN PRN Reason: Wheezing Stop: 05/25/17 16:33 Last Admin: 03/26/17 23:09 Dose: 2.5 mg Albuterol/Ipratropium (Duoneb Neb) 3 ml HHN [id number] JUANITA Stop: 05/25/17 06:59 Last Admin: 03/28/17 13:17 Dose: 3 ml Bisacodyl (Dulcolax 10 Mg Supp) 10 mg RC PRN PRN PRN Reason: Constipation Stop: 05/25/17 21:35 Carbamazepine (Tegretol) 200 mg PO BID JUANITA PRN Reason: Protocol Stop: 05/26/17 08:59 Last Admin: 03/28/17 09:12 Dose: 200 mg Divalproex Sodium (Depakote Er) 500 mg PO BID JUANITA PRN Reason: Protocol Stop: 05/26/17 08:59 Last Admin: 03/28/17 09:12 Dose: 500 mg Docusate Sodium (Colace) 250 mg PO DAILY JUANITA Stop: 05/26/17 08:59 Last Admin: 03/28/17 09:11 Dose: 250 mg Fish Oil ([place] 3) 1,000 mg PO DAILY JUANITA Stop: 05/26/17 08:59 Last Admin: 03/28/17 09:11 Dose: 1,000 mg Haloperidol (Haldol) 2.5 mg PO BID JUANITA PRN Reason: Protocol Stop: 05/26/17 08:59 Last Admin: 03/28/17 09:11 Dose: 2.5 mg Azithromycin 500 mg/ Sodium (Chloride) 250 mls @ 250 mls/hr IV Q24HR JUANITA Stop: 05/26/17 04:59 Last Infusion: 03/28/17 07:30 Dose: Infused Ceftriaxone Sodium 1 gm/ (Sodium Chloride) 50 mls @ 100 mls/hr IV Q24HR JUANITA Stop: 05/25/17 05:59 Last Infusion: 03/28/17 09:12 Dose: Infused Loratadine (Claritin) 10 mg PO DAILY JUANITA Stop: 05/26/17 08:59 Last Admin: 03/28/17 09:12 Dose: 10 mg Lorazepam (Ativan) 1 mg IVP Q4HR PRN; Protocol PRN Reason: Agitation Stop: 05/25/17 16:35 Last Admin: 03/27/17 00:11 Dose: 1 mg Magnesium Hydroxide (Milk Of Magnesia) 30 ml PO HS PRN PRN Reason: Constipation Stop: 05/25/17 21:35 Sodium Phosphate (Fleet Enema) 135 ml RC Q48H PRN PRN Reason: Constipation Stop: 05/25/17 21:35 General: no acute distress, well developed, well nourished HEENT: atraumatic, normocephalic, PERRLA Neck: supple, no thyromegaly Cardiovascular: S1S2, regular Lungs: clear to auscultation bilaterally, clear to percussion Abdomen: soft, no tender, no distended Extremities: no cyanosis, no clubbing, no edema Neurological: awake, alert, oriented Skin: intact Infectious Disease Assmt/Plan - Assessment Assessment: IMPRESSION: 1. Right lower lobe pneumonia as per the chest x-ray report from the nursing facility. 2. Seizure disorder. 3. Dementia. 4. Depression. RECOMMENDATIONS AND PLAN: Continue Rocephin and Zithromax at this time. Antibiotics may be changed to Augmentin 875 mg p.o. twice a day for 9 days and Zithromax 500 mg IV or p.o. for 1 days from now.
[2017-03-28] MEDS ORDERED: Sodium Chloride 0.9% 1,000 ML IV SCH (15:45)
[2017-03-28] MEDS ORDERED: Probiotic Screen MC PRN (16:05)
[2017-03-29] MEDS ORDERED: Lactobacillus Rhamnosus GG 15 Billion CFU CAP.SPRINK PO SCH (09:00)
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
== END 2017-03-28 21:02 | disposition home or self-care (01) | DRG 193 ==
LOC: ER 20:39 → TELE 03-26 15:24
PROVIDERS: ADMIT Internal Medicine; ATTEND Internal Medicine
DX: J18.1 Lobar pneumonia, unspecified organism (principal); E41 Nutritional marasmus; F03.90 Unspecified dementia, unspecified severity, without behavioral disturbance, psychotic disturbance, mood disturbance, and anxiety; E87.1 Hypo-osmolality and hyponatremia; E87.6 Hypokalemia; F32.9 Major depressive disorder, single episode, unspecified; G40.909 Epilepsy, unspecified, not intractable, without status epilepticus; F41.9 Anxiety disorder, unspecified; F39 Unspecified mood [affective] disorder; Z87.820 Personal history of traumatic brain injury; Z79.899 Other long term (current) drug therapy
CPT/HCPCS: 36415-UA; 80048-TC; 80053-TC; 80061-TC; 80156-TC; 80164-TC; 84443-TC; 85007-TC; 85025-TC; 85027-TC; 87804-TC; 93005; 94760; J0456; J0696; J2060; J7030; J7040; J7613; Z7610

== ENCOUNTER 2017-07-16 15:34 | Inpatient (IN) | payer MEDICARE, OTHER, MEDICAID ==
[2017-07-16 16:15] LABS: % BASOPHILS 0.5 % (0.0-2.0); % EOSINOPHILS 6.6 % (0.0-5.0); % LYMPHOCYTES 27.6 % (20.0-50.0); % MONOCYTES 10.2 % (2.0-10.0); % NEUTROPHILS 55.1 % (40.0-80.0); EOSINOPHILE ABSOLUTE 0.6 Th/cmm (0.1-0.4); HEMATOCRIT 38.4 % (41.0-60); HEMOGLOBIN 12.7 gm/dL (12-16); LYMPHOCYTE ABSOLUTE 2.4 Th/cmm (1.5-3.0); MEAN CELL VOLUME 96.6 fl (80-99); MEAN CORPUSCULAR HEMOGLOBIN 31.9 pg (26.0-30.0); MEAN CORPUSCULAR HGB CONC 33.1 pg (28.0-36.0); MEAN PLATELET VOLUME 7.8 fl; MONOCYTE ABSOLUTE 0.9 Th/cmm (0.3-1.0); NEUTROPHILE ABSOLUTE 4.8 Th/cmm (1.8-8.0); PLATELET COUNT 267 Th/cmm (150-400); RED BLOOD COUNT 3.98 Mil/cmm (4.30-5.70); RED CELL DISTRIBUTION WIDTH 13.2 % (11.5-20.0); WHITE BLOOD COUNT 8.7 Th/cmm (4.8-10.8)
[2017-07-16 16:31] LABS: INR 1.07 (0.5-1.4); PROTHROMBIN TIME (TEST) 11.1 SECONDS (9.5-11.5)
[2017-07-16 16:53] LABS: ALB/GLOB RATIO 1.2 (1.0-1.8); ALBUMIN 3.7 gm/dL (4.2-5.5); ALKALINE PHOSPHATASE 52 U/L (34-104); BILIRUBIN,TOTAL 0.2 mg/dL (0.3-1.0); BUN - UREA NITROGEN 17 mg/dL (7-25); CALCIUM SERUM 8.7 mg/dL (8.6-10.3); CARBON DIOXIDE 24.8 mEq/L (21.0-31.0); CHLORIDE 106 mEq/L (98-107); CREATININE - SERUM 0.7 mg/dL (0.7-1.3); CREATININE KINASE 51 U/L (30-223); GFR AFRICAN-AMERICAN > 60.0 ml/min (>90); GFR NON AFRICAN-AMERICAN > 60.0 ml/min; GLUCOSE 88 mg/dL (70-105); POTASSIUM SERUM 3.8 mEq/L (3.5-5.1); SGOT 16 U/L (13-39); SGPT/ALT 12 U/L (7-52); SODIUM SERUM 139 mEq/L (136-145); TOTAL PROTEIN,SERUM 6.7 gm/dL (6.0-8.3)
--- NOTE | 2017-07-16 17:15 | ED Physician Chart ---
ED Chief Complaint/HPI - Patient Information Date Seen:: 07/16/17 Time Seen:: 15:35 Chief Complaint:: Weakness History of Present Illness:: onset x 3 days of generalized weakness, poor oral intake, and failure to thrive ; no report of trauma, LOC, H/As, ALOC, AMS, S/T, neck pain, C/P, SOB, Abd. Pain , A/N/V/D/C, fever, chills, or urinary s/s Allergies:: Allergies Allergy/AdvReac Type Severity Reaction Status Date / Time No Known Allergies Allergy Verified 07/16/17 15:44 Vitals:: Vital Signs - 8 hr 07/16/17 15:35 Temp 97.6 F HR 72 RR 16 BP 121/74 O2 Sat % 97 Historian:: Patient, EMS Review:: Nurse's Note Reviewed, Old Chart Reviewed, EMS run form Reviewed ED Review of Systems - Review of Systems General/Constitutional: No fever, No chills, No weight loss, No weakness, No diaphoresis, No edema, No loss of appetite Skin: No skin lesions, No rash, No bruising Head: No headache, No light-headedness Eyes: No loss of vision, No pain, No diplopia ENT: No earache, No nasal drainage, No sore throat, No tinnitus Neck: No neck pain, No swelling, No thyromegaly, No stiffness, No mass noted Cardio Vascular: No chest pain, No palpitations, No PND, No orthopnea, No edema Pulmonary: No SOB, No cough, No sputum, No wheezing GI: No nausea, No vomiting, No diarrhea, No pain, No melena, No hematochezia, No constipation, No hematemesis G/U: No dysuria, No frequency, No hematuria, No nacturia Musculoskeletal: No bone or joint pain, No back pain, No muscle pain Endocrine: No polyuria, No polydipsia Psychiatric: No prior psych history, No depression, No anxiety, No suicidal ideation, No homicidal ideation, No auditory hallucination, No visual hallucination Hematopoietic: No bruising, No lymphadenopathy Allergic/Immuno: No urticaria, No angioedema Neurological: No syncope, No focal symptoms, No weakness, No paresthesia, No headache, No seizure, No dizziness, Confusion, No vertigo ED Past Medical History - Past Medical History Obtainable: Yes Past Medical History: HTN, Dyslipidemia, Dementia Family History: HTN Social History: Non Smoker, No Alcohol, No Drug Use, Single, Care Facility Surgical History: None Psychiatricy History: Dementia Medication: Reviewed Family Medical History - Family Member Mother History Unknown: Yes ED Physical Exam - Physical Examination General/Constitutional: Awake, Well-developed, well-nourished, Alert, No distress, GCS 15, Non-toxic appearing, Ambulatory Head: Atraumatic Eyes: Lids, conjuctiva normal, PERRL, EOMI Skin: Nl inspection, No rash, No skin lesions, No ecchymosis, No lymphadenopathy Other Skin comments:: Poor Turgor with dry MM ENMT: External ears, nose nl, TM canals nl, Nasal exam nl, Lips, teeth, gums nl , Oropharynx nl, Tonsils nl Neck: Nontender, Full ROM w/o pain, No JVD, No nuchal rigidity, No bruit, No mass, No stridor Respiratory: Nl effort/Exclusion, Clear to Auscultation, No Wheeze/Rhonchi/Rales Cardio Vascular: RRR, No murmur, gallop, rubs, NL S1 S2, Carotid/Femoral/Distal pulses equal bilaterally GI: No tenderness/rebounding/guarding, No organomegaly, No hernia, Normal BS's, Nondistended, No mass/bruits, No McBurney tenderness, Rectum exam nl : No CVA tenderness Extremities: No tenderness or effusion, Full ROM, normal strength in all extremities, No edema, Normal digits & nails Neuro/Psych: Alert/oriented, DTR's symmetric, Normal sensory exam, Normal motor strength, Judgement/insight normal, Mood normal, Normal gait, No focal deficits Misc: Normal back, No paraspinal tenderness ED Labs/Radiology/EKG Results - Lab Results Results: Laboratory Tests 07/16/17 07/16/17 07/16/17 16:00 16:00 16:00 WBC 8.7 RBC 3.98 L Hgb 12.7 Hct 38.4 L MCV 96.6 MCH 31.9 H MCHC Differential 33.1 RDW 13.2 Plt Count 267 MPV 7.8 Neutrophils % 55.1 Lymphocytes % 27.6 Monocytes % 10.2 H Eosinophils % 6.6 H Basophils % 0.5 PT 11.1 INR 1.07 PTT (Actin FS) 27.1 Sodium 139 Potassium 3.8 Chloride 106 Carbon Dioxide 24.8 Anion Gap 12.0 BUN 17 Creatinine 0.7 Est GFR ( Amer) > 60.0 Est GFR (Non-Af Amer) > 60.0 BUN/Creatinine Ratio 24.3 Glucose 88 Whole Bld Lactic Acid Calcium 8.7 Total Bilirubin 0.2 L AST 16 ALT 12 Alkaline Phosphatase 52 Creatine Kinase 51 Total Protein 6.7 Albumin 3.7 L Globulin 3.0 Albumin/Globulin Ratio 1.2 07/16/17 16:00 WBC RBC Hgb Hct MCV MCH MCHC Differential RDW Plt Count MPV Neutrophils % Lymphocytes % Monocytes % Eosinophils % Basophils % PT INR PTT (Actin FS) Sodium Potassium Chloride Carbon Dioxide Anion Gap BUN Creatinine Est GFR ( Amer) Est GFR (Non-Af Amer) BUN/Creatinine Ratio Glucose Whole Bld Lactic Acid 1.20 Calcium Total Bilirubin AST ALT Alkaline Phosphatase Creatine Kinase Total Protein Albumin Globulin Albumin/Globulin Ratio Comments:: unremarkable - Radiology Results Comments:: NAD - EKG Interpretations EKG Time:: 16:00 Rate & Rhythm: 68; NSR Comments:: non-specific st-t changes ED Septic Shock - . Is Septic Shock (SBP<90, OR Lactate>4 mmol\L) present?: No - <6hrs of presentation: Vital Signs: Vital Signs - 8 hr 07/16/17 15:35 Temp 97.6 F HR 72 RR 16 BP 121/74 O2 Sat % 97 ED Reassessment (Disposition) - Reassessment Reassessment Condition:: Improved - Diagnosis Diagnosis:: Weakness; Dementia; Poor Oral Intake; Failure to Thrive; Dehydration - Aftercare/Follow up Instructions Aftercare/Follow-Up Instructions:: Counseled pt regarding lab results/diagnosis & need follow up, Counseled pt & family regarding lab results/diagnosis & need follow up - Patient Disposition Discharge/Transfer:: Acute Care w/in this hosp Accepting Physician:: Dr. Bourne Time Called:: 1719 Time Responded:: 17:20 Admitted to:: Med/Surg Spoke to:: Dr. Bourne Admitting Medical Physician:: Dr. Bourne Condition at Disposition:: Stable, Improved
[2017-07-16 19:20] LABS: URINE MICROSCOPIC INDICATED? YES; URINE SOURCE MIDSTREAM
[2017-07-16 19:47] LABS: URINE BILIRUBIN NEGATIVE (NEGATIVE); URINE BLOOD NEGATIVE (NEGATIVE); URINE GLUCOSE (UA) NEGATIVE (NEGATIVE); URINE KETONE NEGATIVE (NEGATIVE); URINE LEUKOCYTE ESTERASE NEGATIVE (NEGATIVE); URINE NITRATE NEGATIVE (NEGATIVE); URINE PROTEIN NEGATIVE (NEGATIVE); URINE UROBILINOGEN 0.2 E.U./dL (0.2 - 1.0)
[2017-07-16 19:52] LABS: URINE CLARITY CLEAR (CLEAR); URINE COLOR YELLOW
[2017-07-16 19:55] LABS: URINE BACTERIA NONE SEEN /hpf (NONE SEEN); URINE EPITHELIAL CELLS NONE SEEN /lpf (FEW); URINE RBC 0-2 /hpf (0-5); URINE WBC NONE SEEN /hpf (0-5)
[2017-07-16 21:21] VITALS: BP 133/77
[2017-07-16] MEDS ORDERED: Maalox 30 mL Cup PO PRN (21:35)
[2017-07-16] MEDS ORDERED: Fleet Enema 135 mL RC PRN (21:35)
[2017-07-16] MEDS ORDERED: Acetaminophen 500 MG TAB PO PRN (21:35)
[2017-07-16] MEDS: D5-0.45NS 1,000 ML IV SCH (22:00)
[2017-07-17 06:22] LABS: ANION GAP 13.9 (7.0-16.0); BUN - UREA NITROGEN 11 mg/dL (7-25); CALCIUM SERUM 9.2 mg/dL (8.6-10.3); CARBON DIOXIDE 21.9 mEq/L (21.0-31.0); CHLORIDE 106 mEq/L (98-107); CHOLESTEROL 157 mg/dL (<200); CREATININE - SERUM 0.7 mg/dL (0.7-1.3); GFR AFRICAN-AMERICAN > 60.0 ml/min (>90); GFR NON AFRICAN-AMERICAN > 60.0 ml/min; GLUCOSE 93 mg/dL (70-105); HDL -HIGH DENSITY LIPOPROTEIN 47 mg/dL (23-92); INR 1.07 (0.5-1.4); POTASSIUM SERUM 3.8 mEq/L (3.5-5.1); PROTHROMBIN TIME (TEST) 11.1 SECONDS (9.5-11.5); SODIUM SERUM 138 mEq/L (136-145); TRIGLYCERIDES 88 mg/dL (<150)
[2017-07-17 06:31] LABS: % BASOPHILS 0.4 % (0.0-2.0); % EOSINOPHILS 10.6 % (0.0-5.0); % LYMPHOCYTES 42.6 % (20.0-50.0); % MONOCYTES 8.5 % (2.0-10.0); % NEUTROPHILS 37.9 % (40.0-80.0); EOSINOPHILE ABSOLUTE 0.6 Th/cmm (0.1-0.4); HEMATOCRIT 40.8 % (41.0-60); HEMOGLOBIN 13.6 gm/dL (12-16); LYMPHOCYTE ABSOLUTE 2.4 Th/cmm (1.5-3.0); MEAN CELL VOLUME 97.2 fl (80-99); MEAN CORPUSCULAR HEMOGLOBIN 32.5 pg (26.0-30.0); MEAN CORPUSCULAR HGB CONC 33.4 pg (28.0-36.0); MEAN PLATELET VOLUME 8.5 fl; MONOCYTE ABSOLUTE 0.5 Th/cmm (0.3-1.0); NEUTROPHILE ABSOLUTE 2.1 Th/cmm (1.8-8.0); RED BLOOD COUNT 4.19 Mil/cmm (4.30-5.70); RED CELL DISTRIBUTION WIDTH 13.3 % (11.5-20.0); WHITE BLOOD COUNT 5.6 Th/cmm (4.8-10.8)
[2017-07-17 06:41] LABS: PLATELET COUNT 201 Th/cmm (150-400)
--- NOTE | 2017-07-17 07:33 | Diagnostic Imaging Report ---
CHEST X-RAY: AP view INDICATION: pain COMPARISON: None FINDINGS: Slightly decreased lung volumes are seen with increased interstitial lung markings, greatest within left lung base. No focal consolidation or effusions. Heart size is normal. Osseous structures are intact. IMPRESSION: Increased interstitial lung markings probably due to chronic lung changes. Additional faint increased left basal lung markings are noted probably chronic. Underlying faint infiltrate is less likely, however, correlation should be made clinically. No focal consolidation identified.
[2017-07-17] MEDS: Multivitamin w/ Minerals Tab PO SCH (08:06)
[2017-07-17] MEDS: Fish Oil 1,000 MG SGL PO SCH (08:06)
[2017-07-17] MEDS ORDERED: Non-Formulary Item 1 EA (Cetirizine Hcl [Zyrtec] 10 MG) PO SCH (09:00)
--- NOTE | 2017-07-17 10:08 | Diagnostic Imaging Report ---
KUB single view HISTORY: Abdominal pain. COMPARISON: None FINDINGS: Copious stool is seen throughout the colon. Gas-filled loop of stomach is noted. Degenerative changes of the spine are noted. Postsurgical changes right femur are noted. Degenerative changes of bilateral hip joints are noted. IMPRESSION: Copious amount of stool. Please correlate for constipation.
--- NOTE | 2017-07-17 10:09 | History & Physical ---
ADMIT DATE: 07/16/2017 TYPE OF CONSULTATION: GASTROENTEROLOGY REQUESTING PHYSICIAN: Ana Bourne. REASON FOR CONSULTATION: Dehydration and failure to thrive. HISTORY OF PRESENT ILLNESS: A 56-year-old male with history of mild dementia, depression, seizure disorder, hypertension, hyperlipidemia, admitted for dehydration and failure to thrive. He also had mild epigastric abdominal pain. He reports some constipation. He reports no prior endoscopy or colonoscopy, although he is a poor historian. His labs on admission were unremarkable. PAST MEDICAL HISTORY: As above. MEDICATIONS: Tylenol, Maalox, Dulcolax, Tegretol, Depakote, Colace, omega-3 fish oil, Haldol, Claritin, milk of magnesia, Zyprexa, Metamucil, Fleet enema p.r.n. ALLERGIES: None. SOCIAL HISTORY: [facility] resident. No known tobacco, alcohol or drugs. FAMILY HISTORY: Noncontributory. REVIEW OF SYSTEMS: Comprehensive 12-point review of system was conducted and is only positive for those signs and symptoms present in history of present illness. PHYSICAL EXAMINATION: VITAL SIGNS: Temperature 96.7, blood pressure is 103/70, pulse of 64, respirations 17, O2 sat 96%. GENERAL: The patient is well-developed, well-nourished male who is in no acute distress. HEENT: Sclerae nonicteric. Oropharynx clear. CARDIOVASCULAR: Regular rate and rhythm. LUNGS: Clear to auscultation bilaterally. ABDOMEN: Soft, mild epigastric chest pain. EXTREMITIES: No clubbing, cyanosis or edema. RECTAL: Deferred. LABORATORY DATA AND IMAGING: Complete blood count is normal. Coagulation profile is normal. Chemistries including liver enzymes are normal. TSH is normal. Urinalysis was essentially clear. IMPRESSION: 1. Dehydration and failure to thrive, not improved. The patient is able to tolerate 100% of his breakfast this morning. 2. Mild epigastric abdominal pain and/or constipation. 3. Hypertension. 4. Hyperlipidemia. 5. Dementia and depression and seizure disorder. 6. Recent pneumonia. RECOMMENDATIONS: 1. Monitor oral intake and continue a regular diet. 2. Colace and psyllium to be continued. 3. Add Protonix. 4. Check abdominal ultrasound. 5. Check KUB. 6. Check lipase. 7. Consider endoscopy and/or colonoscopy if the patient continues to have poor appetite and/or epigastric abdominal pain and if workup has not been done recently. Thank you, Dr. Ana Bourne for involving us in the care of your patient. If you have any further questions, please call us. [facility]# [id number]
[2017-07-17] MEDS: D5-0.45NS 1,000 ML IV SCH (12:00)
[2017-07-17] MEDS: Pantoprazole 40 mg EC Tab PO SCH (12:01)
[2017-07-17] MEDS: Magnesium Hydroxide (MOM) 30 mL UDC PO PRN (22:39)
[2017-07-18] MEDS: D5-0.45NS 1,000 ML IV SCH (05:15)
[2017-07-18 06:29] LABS: % BASOPHILS 0.7 % (0.0-2.0); % LYMPHOCYTES 42.2 % (20.0-50.0); % MONOCYTES 8.9 % (2.0-10.0); % NEUTROPHILS 40.2 % (40.0-80.0); ANION GAP 11.3 (7.0-16.0); BUN - UREA NITROGEN 8 mg/dL (7-25); CALCIUM SERUM 9.3 mg/dL (8.6-10.3); CARBON DIOXIDE 25.8 mEq/L (21.0-31.0); CHLORIDE 105 mEq/L (98-107); CREATININE - SERUM 0.7 mg/dL (0.7-1.3); EOSINOPHILE ABSOLUTE 0.4 Th/cmm (0.1-0.4); GFR AFRICAN-AMERICAN > 60.0 ml/min (>90); GFR NON AFRICAN-AMERICAN > 60.0 ml/min; GLUCOSE 99 mg/dL (70-105); HEMATOCRIT 45.1 % (41.0-60); LYMPHOCYTE ABSOLUTE 2.1 Th/cmm (1.5-3.0); MEAN CELL VOLUME 95.8 fl (80-99); MEAN CORPUSCULAR HEMOGLOBIN 31.9 pg (26.0-30.0); MEAN CORPUSCULAR HGB CONC 33.3 pg (28.0-36.0); MEAN PLATELET VOLUME 8.3 fl; MONOCYTE ABSOLUTE 0.4 Th/cmm (0.3-1.0); PLATELET COUNT 260 Th/cmm (150-400); POTASSIUM SERUM 4.1 mEq/L (3.5-5.1); RED BLOOD COUNT 4.71 Mil/cmm (4.30-5.70); SODIUM SERUM 138 mEq/L (136-145); WHITE BLOOD COUNT 4.9 Th/cmm (4.8-10.8)
--- NOTE | 2017-07-18 08:31 | Diagnostic Imaging Report ---
Exam: Ultrasound examination of the abdomen HISTORY: Abdominal pain Findings: Real-time ultrasound examination the abdomen performed multiple planes. The study demonstrates normal echogenicity liver parenchyma. The gallbladder is free of calculi. Common bile duct measures 4 mm. The pancreas is not visualized due to large amount of intra-abdominal bowel gas There is no evidence of obstructive uropathy or nephrolithiasis. Left renal cyst measuring 5.1cm x 5 cm appreciated. The spleen is intact. No free fluid is noted. IMPRESSION: Limited examination due to patient inability to cooperate. Large amount of intra-abdominal bowel gas. No evidence for cholelithiasis. Incidentally noted large left renal cyst measuring 5.1 cm in diameter
[2017-07-18] MEDS: Multivitamin w/ Minerals Tab PO SCH (09:03)
[2017-07-18] MEDS: Fish Oil 1,000 MG SGL PO SCH (09:03)
[2017-07-18] MEDS: Pantoprazole 40 mg EC Tab PO SCH (09:13)
[2017-07-18] MEDS ORDERED: Magnesium Citrate 1.75 GM/300 mL Bottle PO ONE (14:18)
--- NOTE | 2017-07-18 16:02 | History & Physical ---
ADMIT DATE: 07/16/2017 HISTORY OF PRESENT ILLNESS: A 56-year-old patient well known to me from [place], apparently he was not eating, drinking, was very dry and dehydrated, has failure to thrive, came to the Emergency Room at [place]. The patient known to have history of seizures, hypertension, hyperlipidemia, was admitted for failure to thrive, severe dehydration, acute kidney injury. PAST MEDICAL HISTORY: As above. MEDICATIONS: See the reconciliation sheet. SOCIAL HISTORY: He lives at the [place] at this time. REVIEW OF SYSTEMS: Except for the above thing, is negative. PHYSICAL EXAMINATION: HEAD: Normal. ENT: Normal. NECK: Supple, nontender. LUNGS: Clear. CARDIOVASCULAR SYSTEM: S1, S2 heard. ABDOMEN: Soft. Bowel sounds are heard. CENTRAL NERVOUS SYSTEM: The patient is very uncooperative. DIAGNOSES: Dehydration, acute renal failure, epigastric pain, hypertension, hyperlipidemia, depression, dementia, and history of status post recent pneumonia. PLAN: The patient is going to have a complete blood work and we will have Protonix. Will need an ultrasound. We will have Dr. Guillen see the patient. I will follow the patient. JOB# [id number]
--- NOTE | 2017-07-18 18:30 | General Progress Note ---
Objective - Results Result Diagrams: 07/18/17 05:45 07/18/17 05:45 Recent Labs: Laboratory Last Values WBC 4.9 Th/cmm (4.8-10.8) 07/18/17 05:45 RBC 4.71 Mil/cmm (4.30-5.70) 07/18/17 05:45 Hgb 15.0 gm/dL (12-16) 07/18/17 05:45 Hct 45.1 % (41.0-60) 07/18/17 05:45 MCV 95.8 fl (80-99) 07/18/17 05:45 MCH 31.9 pg (26.0-30.0) H 07/18/17 05:45 MCHC Differential 33.3 pg (28.0-36.0) 07/18/17 05:45 RDW 13.0 % (11.5-20.0) 07/18/17 05:45 Plt Count 260 Th/cmm (150-400) 07/18/17 05:45 MPV 8.3 fl 07/18/17 05:45 Neutrophils % 40.2 % (40.0-80.0) 07/18/17 05:45 Lymphocytes % 42.2 % (20.0-50.0) 07/18/17 05:45 Monocytes % 8.9 % (2.0-10.0) 07/18/17 05:45 Eosinophils % 8.0 % (0.0-5.0) H 07/18/17 05:45 Basophils % 0.7 % (0.0-2.0) 07/18/17 05:45 PT 11.1 SECONDS (9.5-11.5) 07/17/17 05:25 INR 1.07 (0.5-1.4) 07/17/17 05:25 PTT (Actin FS) 28.3 SECONDS (26.0-38.0) 07/17/17 05:25 Sodium 138 mEq/L (136-145) 07/18/17 05:45 Potassium 4.1 mEq/L (3.5-5.1) 07/18/17 05:45 Chloride 105 mEq/L (98-107) 07/18/17 05:45 Carbon Dioxide 25.8 mEq/L (21.0-31.0) 07/18/17 05:45 Anion Gap 11.3 (7.0-16.0) 07/18/17 05:45 BUN 8 mg/dL (7-25) 07/18/17 05:45 Creatinine 0.7 mg/dL (0.7-1.3) 07/18/17 05:45 Est GFR ( Amer) > 60.0 ml/min (>90) 07/18/17 05:45 Est GFR (Non-Af Amer) > 60.0 ml/min 07/18/17 05:45 BUN/Creatinine Ratio 11.4 07/18/17 05:45 Glucose 99 mg/dL (70-105) 07/18/17 05:45 Whole Bld Lactic Acid 1.20 mmol/L (0.60-1.99) 07/16/17 16:00 Calcium 9.3 mg/dL (8.6-10.3) 07/18/17 05:45 Total Bilirubin 0.2 mg/dL (0.3-1.0) L 07/16/17 16:00 AST 16 U/L (13-39) 07/16/17 16:00 ALT 12 U/L (7-52) 07/16/17 16:00 Alkaline Phosphatase 52 U/L (34-104) 07/16/17 16:00 Creatine Kinase 51 U/L (30-223) 07/16/17 16:00 Troponin I 0.01 ng/mL (0.01-0.05) 07/16/17 16:00 Total Protein 6.7 gm/dL (6.0-8.3) 07/16/17 16:00 Albumin 3.7 gm/dL (4.2-5.5) L 07/16/17 16:00 Globulin 3.0 gm/dL 07/16/17 16:00 Albumin/Globulin Ratio 1.2 (1.0-1.8) 07/16/17 16:00 Prealbumin 25 07/17/17 05:25 Triglycerides 88 mg/dL (<150) 07/17/17 05:25 Cholesterol 157 mg/dL (<200) 07/17/17 05:25 LDL Cholesterol Direct 94 mg/dL (75-193) 07/17/17 05:25 HDL Cholesterol 47 mg/dL (23-92) 07/17/17 05:25 TSH 1.75 uIU/ml (0.34-5.60) 07/17/17 05:25 Urine Source MIDSTREAM 07/16/17 19:00 Urine Color YELLOW 07/16/17 19:00 Urine Clarity CLEAR (CLEAR) 07/16/17 19:00 Urine pH 7.0 (4.6 - 8.0) 07/16/17 19:00 Ur Specific [place] 1.020 (1.005-1.030) 07/16/17 19:00 Urine Protein NEGATIVE mg/dL (NEGATIVE) 07/16/17 19:00 Urine Glucose (UA) NEGATIVE mg/dL (NEGATIVE) 07/16/17 19:00 Urine Ketones NEGATIVE mg/dL (NEGATIVE) 07/16/17 19:00 Urine Blood NEGATIVE (NEGATIVE) 07/16/17 19:00 Urine Nitrate NEGATIVE (NEGATIVE) 07/16/17 19:00 Urine Bilirubin NEGATIVE (NEGATIVE) 07/16/17 19:00 Urine Urobilinogen 0.2 E.U./dL (0.2 - 1.0) 07/16/17 19:00 Ur Leukocyte Esterase NEGATIVE (NEGATIVE) 07/16/17 19:00 Urine RBC 0-2 /hpf (0-5) H 07/16/17 19:00 Urine WBC NONE SEEN /hpf (0-5) 07/16/17 19:00 Ur Epithelial Cells NONE SEEN /lpf (FEW) 07/16/17 19:00 Urine Bacteria NONE SEEN /hpf (NONE SEEN) 07/16/17 19:00 - Physical Exam Vitals and I&O: Vital Signs Temp 98.0 F 07/18/17 15:41 Pulse 70 07/18/17 15:41 Resp 18 07/18/17 15:41 BP 128/79 07/18/17 15:41 Pulse Ox 100 07/18/17 15:41 Intake & Output 07/17/17 07/18/17 07/18/17 18:59 06:59 18:59 Intake Total 1400 1000 800 Balance 1400 1000 800 Weight (lbs) 76.204 kg 72.575 kg 72.575 kg Intake: Intake, IV Amount 1000 1000 D5-0.45NS 1,000 ml @ 75 1000 1000 mls/hr IV .[id number] [facility] Rx #:[id number] Oral 400 800 Other: # Voids 2 3 # Bowel Movements 0 1 Weight Source Bedscale Bedscale Bedscale Active Medications: Current Medications Acetaminophen (Tylenol) 650 mg PO Q4HR PRN PRN Reason: Pain or Fever >101 Stop: 09/14/17 21:34 Al Hydrox/Mg Hydrox/Simethicone (Maalox) 30 ml PO Q6HR PRN PRN Reason: Heartburn Stop: 09/14/17 21:34 Bisacodyl (Dulcolax 10 Mg Supp) 10 mg RC DAILY PRN PRN Reason: Constipation Stop: 09/14/17 21:34 Last Admin: 07/18/17 05:15 Dose: 10 mg Carbamazepine (Tegretol) 200 mg PO BID [facility] PRN Reason: Protocol Stop: 09/15/17 08:59 Last Admin: 07/18/17 16:50 Dose: 200 mg Divalproex Sodium (Depakote Er) 750 mg PO BID [facility] PRN Reason: Protocol Stop: 09/15/17 08:59 Last Admin: 07/18/17 16:17 Dose: 750 mg Docusate Sodium (Colace) 250 mg PO DAILY [facility] Stop: 09/15/17 08:59 Last Admin: 07/18/17 09:02 Dose: 250 mg Fish Oil ([place] 3) 1,000 mg PO DAILY [facility] Stop: 09/15/17 08:59 Last Admin: 07/18/17 09:03 Dose: 1,000 mg Haloperidol (Haldol) 2.5 mg PO BID [facility] PRN Reason: Protocol Stop: 09/15/17 08:59 Last Admin: 07/18/17 16:17 Dose: 2.5 mg Dextrose/Sodium Chloride (D5-0.45ns) 1,000 mls @ 75 mls/hr IV .[id number] [facility] Stop: 09/14/17 21:29 Last Admin: 07/18/17 05:15 Dose: 75 mls/hr Loratadine (Claritin) 10 mg PO DAILY [facility] Stop: 09/15/17 08:59 Last Admin: 07/18/17 09:02 Dose: 10 mg Magnesium Hydroxide (Milk Of Magnesia) 30 ml PO HS PRN PRN Reason: Constipation Stop: 09/14/17 21:34 Last Admin: 07/17/17 22:39 Dose: 30 ml Mupirocin (Bactroban Oint) 1 appl NS BID [facility] Stop: 07/22/17 17:01 Last Admin: 07/18/17 16:17 Dose: 1 appl Olanzapine (Zyprexa) 10 mg PO TID [facility] PRN Reason: Protocol Stop: 09/15/17 08:59 Last Admin: 07/18/17 13:56 Dose: 10 mg Pantoprazole Sodium (Protonix) 40 mg PO DAILY [facility] Stop: 09/15/17 09:59 Last Admin: 07/18/17 09:13 Dose: 40 mg Psyllium Hydrophilic Mucilloid (Metamucil) 1 pkt PO BID [facility] Stop: 09/15/17 08:59 Last Admin: 07/18/17 16:17 Dose: 1 pkt Sodium Phosphate (Fleet Enema) 135 ml RC Q48H PRN PRN Reason: Constipation Stop: 09/14/17 21:34 Nutritional Asmnt/Malnutr-PDOC - Dietary Evaluation Malnutrition Findings (Please click <Entered> for more info): Nutritional Asmnt/Malnutrition Start: 07/17/17 15: 32 Text: Status: Complete Freq: Document 07/17/17 15:32 LCHENG (Rec: 07/17/17 16:22 [email or web address] [email or web address]) Nutritional Asmnt/Malnutrition Patient General Information Nutritional Screening High Risk Consult Diagnosis dehydration, FTT Pertinent Medical Hx/Surgical Hx dementia, depression, seizure, HTN, hyperlipidemia Subjective Information Per H&P pt had poor oral intake x 3 days before admission. Pt seen lying in bed at time of visit, awake. Pt reported good appetite, all the food is fine. Pt was on regular diet, now on NPO for KUB. Per IKE Momin, pt ate breakfast well this morning. Poor oral intake before admission may d/t constipation . Current Diet Order/ Nutrition Support NPO Pertinent Medications D5-0.45ns, colace, fish oil, protonix Pertinent Labs 07/17 nutrition labs WNL Nutritional Hx/Data Height 1.73 m Height (Calculated Centimeters) 172.7 Current Weight (lbs) 76.204 kg Weight (Calculated Kilograms) 76.2 Weight (Calculated Grams) 40313.5 [place] Body Weight 154 Body Mass Index (BMI) 25.5 Weight Status Overweight GI Symptoms GI Symptoms None Last BM 0 Difficult in: None Skin Integrity/Comment: abrasion to right leg, left finger and left foot rash to neck and face Estimated Nutritional Goals Calories/Kcals/Kg 25-30 based on IBW 70kg Kcals Calculated 1740-6540 Protein g/k Protein Calculated 70 Fluid: ml 1750-2100ml (1ml/kcal) Nutritional Problem No current Nutrition Prob Problem N/A Malnutrition Alert Protein-Calorie Malnutrition N/A Is there a minimum of two criteria No selected? Query Text:Check all the applicable criteria. A minimum of two criteria are recommended for diagnosis of either severe or non-severe malnutrition. Intervention/Recommendation Comments 1. Continue with regular diet if diet resumed. Nurse to encourage oral intake. 2. Monitor PO intake, wt, labs and skin integrity 3. F/U as high risk in 2-3 days, 07/19-07/20 Expected Outcomes/Goals Expected Outcomes/Goals 1. PO intake to meet at least 75% of nutritional needs. 2. Wt stability, skin to remain intact, labs to approach WNL.
[2017-07-19] MEDS: Fish Oil 1,000 MG SGL PO SCH (08:59)
[2017-07-19] MEDS: Multivitamin w/ Minerals Tab PO SCH (09:00)
[2017-07-19] MEDS: Pantoprazole 40 mg EC Tab PO SCH (09:01)
[2017-07-19] MEDS: D5-0.45NS 1,000 ML IV SCH ×2 (09:01→21:32)
--- NOTE | 2017-07-19 13:44 | Progress Notes ---
DATE: 07/19/2017 SUBJECTIVE: The patient was seen in his room, lying in the bed. The patient is a poor historian due to medical condition, otherwise the patient appears to be in no acute distress. OBJECTIVE: VITAL SIGNS: Temperature 97.4, heart rate of 69, blood pressure 135/75, respiration of 18, 100% on room air. HEENT: Head is atraumatic and normocephalic. Eyes: Bilateral conjunctivae are clear. Bilateral pupils are equally round and reactive. NECK: Supple. No JVD. CARDIOVASCULAR: S1 and S2, without murmur. PULMONARY: Clear to auscultation. GASTROINTESTINAL: Soft, nontender without guarding. Positive bowel sounds. MUSCULOSKELETAL: No clubbing. No cyanosis noted. ASSESSMENT: 1. Dehydration. 2. Adult failure to thrive. 3. Dementia. 4. Hyperlipidemia. 5. Hypertension. 6. Acute renal failure. PLAN: We will follow up with the GI doctor for possible endoscopic workup. Continue to hydrate the patient. Treatment plans were discussed with the patient's nurse. Treatment plans were discussed with Dr. Bourne. JOB# [id number]
[2017-07-20] MEDS: Multivitamin w/ Minerals Tab PO SCH (08:47)
[2017-07-20] MEDS: Fish Oil 1,000 MG SGL PO SCH (08:47)
[2017-07-20] MEDS: Pantoprazole 40 mg EC Tab PO SCH (08:48)
--- NOTE | 2017-07-20 13:37 | Infectious Disease Prog Note ---
Infectious Disease Subjective - Review of Systems Service Date: 07/20/17 Subjective: The patient has a facial rash. Infectious Disease Objective - Results Result Diagrams: 07/18/17 05:45 07/18/17 05:45 Recent Labs: Laboratory Last Values WBC 4.9 Th/cmm (4.8-10.8) 07/18/17 05:45 RBC 4.71 Mil/cmm (4.30-5.70) 07/18/17 05:45 Hgb 15.0 gm/dL (12-16) 07/18/17 05:45 Hct 45.1 % (41.0-60) 07/18/17 05:45 MCV 95.8 fl (80-99) 07/18/17 05:45 MCH 31.9 pg (26.0-30.0) H 07/18/17 05:45 MCHC Differential 33.3 pg (28.0-36.0) 07/18/17 05:45 RDW 13.0 % (11.5-20.0) 07/18/17 05:45 Plt Count 260 Th/cmm (150-400) 07/18/17 05:45 MPV 8.3 fl 07/18/17 05:45 Neutrophils % 40.2 % (40.0-80.0) 07/18/17 05:45 Lymphocytes % 42.2 % (20.0-50.0) 07/18/17 05:45 Monocytes % 8.9 % (2.0-10.0) 07/18/17 05:45 Eosinophils % 8.0 % (0.0-5.0) H 07/18/17 05:45 Basophils % 0.7 % (0.0-2.0) 07/18/17 05:45 PT 11.1 SECONDS (9.5-11.5) 07/17/17 05:25 INR 1.07 (0.5-1.4) 07/17/17 05:25 PTT (Actin FS) 28.3 SECONDS (26.0-38.0) 07/17/17 05:25 Sodium 138 mEq/L (136-145) 07/18/17 05:45 Potassium 4.1 mEq/L (3.5-5.1) 07/18/17 05:45 Chloride 105 mEq/L (98-107) 07/18/17 05:45 Carbon Dioxide 25.8 mEq/L (21.0-31.0) 07/18/17 05:45 Anion Gap 11.3 (7.0-16.0) 07/18/17 05:45 BUN 8 mg/dL (7-25) 07/18/17 05:45 Creatinine 0.7 mg/dL (0.7-1.3) 07/18/17 05:45 Est GFR ( Amer) > 60.0 ml/min (>90) 07/18/17 05:45 Est GFR (Non-Af Amer) > 60.0 ml/min 07/18/17 05:45 BUN/Creatinine Ratio 11.4 07/18/17 05:45 Glucose 99 mg/dL (70-105) 07/18/17 05:45 Whole Bld Lactic Acid 1.20 mmol/L (0.60-1.99) 07/16/17 16:00 Calcium 9.3 mg/dL (8.6-10.3) 07/18/17 05:45 Total Bilirubin 0.2 mg/dL (0.3-1.0) L 07/16/17 16:00 AST 16 U/L (13-39) 07/16/17 16:00 ALT 12 U/L (7-52) 07/16/17 16:00 Alkaline Phosphatase 52 U/L (34-104) 07/16/17 16:00 Creatine Kinase 51 U/L (30-223) 07/16/17 16:00 Troponin I 0.01 ng/mL (0.01-0.05) 07/16/17 16:00 Total Protein 6.7 gm/dL (6.0-8.3) 07/16/17 16:00 Albumin 3.7 gm/dL (4.2-5.5) L 07/16/17 16:00 Globulin 3.0 gm/dL 07/16/17 16:00 Albumin/Globulin Ratio 1.2 (1.0-1.8) 07/16/17 16:00 Prealbumin 25 07/17/17 05:25 Triglycerides 88 mg/dL (<150) 07/17/17 05:25 Cholesterol 157 mg/dL (<200) 07/17/17 05:25 LDL Cholesterol Direct 94 mg/dL (75-193) 07/17/17 05:25 HDL Cholesterol 47 mg/dL (23-92) 07/17/17 05:25 TSH 1.75 uIU/ml (0.34-5.60) 07/17/17 05:25 Urine Source MIDSTREAM 07/16/17 19:00 Urine Color YELLOW 07/16/17 19:00 Urine Clarity CLEAR (CLEAR) 07/16/17 19:00 Urine pH 7.0 (4.6 - 8.0) 07/16/17 19:00 Ur Specific [place] 1.020 (1.005-1.030) 07/16/17 19:00 Urine Protein NEGATIVE mg/dL (NEGATIVE) 07/16/17 19:00 Urine Glucose (UA) NEGATIVE mg/dL (NEGATIVE) 07/16/17 19:00 Urine Ketones NEGATIVE mg/dL (NEGATIVE) 07/16/17 19:00 Urine Blood NEGATIVE (NEGATIVE) 07/16/17 19:00 Urine Nitrate NEGATIVE (NEGATIVE) 07/16/17 19:00 Urine Bilirubin NEGATIVE (NEGATIVE) 07/16/17 19:00 Urine Urobilinogen 0.2 E.U./dL (0.2 - 1.0) 07/16/17 19:00 Ur Leukocyte Esterase NEGATIVE (NEGATIVE) 07/16/17 19:00 Urine RBC 0-2 /hpf (0-5) H 07/16/17 19:00 Urine WBC NONE SEEN /hpf (0-5) 07/16/17 19:00 Ur Epithelial Cells NONE SEEN /lpf (FEW) 07/16/17 19:00 Urine Bacteria NONE SEEN /hpf (NONE SEEN) 07/16/17 19:00 - Physical Exam Vitals and I&O: Vital Signs Temp 97.0 F 07/20/17 12:02 Pulse 83 07/20/17 12:02 Resp 18 07/20/17 12:02 BP 126/73 07/20/17 12:02 Pulse Ox 99 07/20/17 12:02 Intake & Output 07/19/17 07/20/17 07/20/17 18:59 06:59 18:59 Intake Total 450 1088.75 Balance 450 1088.75 Weight (lbs) 71.668 kg 76.204 kg Intake: Intake, IV Amount 938.75 D5-0.45NS 1,000 ml @ 75 938.75 mls/hr IV .[id number] [facility] Rx #:[id number] Oral 450 150 Other: # Voids 5 3 # Bowel Movements 0 1 Weight Source Bedscale Bedscale Active Medications: Current Medications Acetaminophen (Tylenol) 650 mg PO Q4HR PRN PRN Reason: Pain or Fever >101 Stop: 09/14/17 21:34 Last Admin: 07/19/17 14:19 Dose: 650 mg Al Hydrox/Mg Hydrox/Simethicone (Maalox) 30 ml PO Q6HR PRN PRN Reason: Heartburn Stop: 09/14/17 21:34 Bisacodyl (Dulcolax 10 Mg Supp) 10 mg RC DAILY PRN PRN Reason: Constipation Stop: 09/14/17 21:34 Last Admin: 07/18/17 05:15 Dose: 10 mg Carbamazepine (Tegretol) 200 mg PO BID [facility] PRN Reason: Protocol Stop: 09/15/17 08:59 Last Admin: 07/20/17 08:46 Dose: 200 mg Divalproex Sodium (Depakote Er) 750 mg PO BID [facility] PRN Reason: Protocol Stop: 09/15/17 08:59 Last Admin: 07/20/17 08:47 Dose: 750 mg Docusate Sodium (Colace) 250 mg PO DAILY [facility] Stop: 09/15/17 08:59 Last Admin: 07/20/17 08:47 Dose: 250 mg Fish Oil ([place] 3) 1,000 mg PO DAILY [facility] Stop: 09/15/17 08:59 Last Admin: 07/20/17 08:47 Dose: 1,000 mg Haloperidol (Haldol) 2.5 mg PO BID [facility] PRN Reason: Protocol Stop: 09/15/17 08:59 Last Admin: 07/20/17 08:47 Dose: 2.5 mg Dextrose/Sodium Chloride (D5-0.45ns) 1,000 mls @ 75 mls/hr IV .[id number] [facility] Stop: 09/14/17 21:29 Last Admin: 07/19/17 21:32 Dose: 75 mls/hr Loratadine (Claritin) 10 mg PO DAILY [facility] Stop: 09/15/17 08:59 Last Admin: 07/20/17 08:47 Dose: 10 mg Magnesium Hydroxide (Milk Of Magnesia) 30 ml PO HS PRN PRN Reason: Constipation Stop: 09/14/17 21:34 Last Admin: 07/17/17 22:39 Dose: 30 ml Mupirocin (Bactroban Oint) 1 appl NS BID [facility] Stop: 07/22/17 17:01 Last Admin: 07/20/17 08:48 Dose: 1 appl Olanzapine (Zyprexa) 10 mg PO TID [facility] PRN Reason: Protocol Stop: 09/15/17 08:59 Last Admin: 07/20/17 13:27 Dose: 10 mg Pantoprazole Sodium (Protonix) 40 mg PO DAILY [facility] Stop: 09/15/17 09:59 Last Admin: 07/20/17 08:48 Dose: 40 mg Psyllium Hydrophilic Mucilloid (Metamucil) 1 pkt PO BID [facility] Stop: 09/15/17 08:59 Last Admin: 07/20/17 08:48 Dose: 1 pkt Sodium Phosphate (Fleet Enema) 135 ml RC Q48H PRN PRN Reason: Constipation Stop: 09/14/17 21:34 General: no acute distress, well developed, well nourished HEENT: atraumatic, normocephalic Neck: supple, no thyromegaly Cardiovascular: S1S2, regular Lungs: no clear to auscultation bilaterally, no clear to percussion, no crackles , no wheeze Abdomen: soft, no tender, no distended Extremities: no cyanosis, no clubbing, no edema Neurological: awake, alert, oriented Skin: intact Infectious Disease Assmt/Plan - Assessment Assessment: 1. Dehydration to his acute renal failure phase epigastric pain improved for his hypertension. 5 hyperlipidemia. 6 depression. 7. Dementia. 8. Status post pneumonia. 9. Face rash, likely seborrheic dermatitis - Plan Plan: Continue same management. Hydrocortisone cream, apply to the face. HIV screen. Nutritional Asmnt/Malnutr-PDOC - Dietary Evaluation Malnutrition Findings (Please click <Entered> for more info): Nutritional Asmnt/Malnutrition Start: 07/17/17 15: 32 Text: Status: Complete Freq: Document 07/17/17 15:32 LONNIE (Rec: 07/17/17 16:22 LCKIARRA [email or web address]) Nutritional Asmnt/Malnutrition Patient General Information Nutritional Screening High Risk Consult Diagnosis dehydration, FTT Pertinent Medical Hx/Surgical Hx dementia, depression, seizure, HTN, hyperlipidemia Subjective Information Per H&P pt had poor oral intake x 3 days before admission. Pt seen lying in bed at time of visit, awake. Pt reported good appetite, all the food is fine. Pt was on regular diet, now on NPO for KUB. Per IKE Momin, pt ate breakfast well this morning. Poor oral intake before admission may d/t constipation . Current Diet Order/ Nutrition Support NPO Pertinent Medications D5-0.45ns, colace, fish oil, protonix Pertinent Labs 07/17 nutrition labs WNL Nutritional Hx/Data Height 1.73 m Height (Calculated Centimeters) 172.7 Current Weight (lbs) 76.204 kg Weight (Calculated Kilograms) 76.2 Weight (Calculated Grams) 44475.5 [place] Body Weight 154 Body Mass Index (BMI) 25.5 Weight Status Overweight GI Symptoms GI Symptoms None Last BM 0 Difficult in: None Skin Integrity/Comment: abrasion to right leg, left finger and left foot rash to neck and face Estimated Nutritional Goals Calories/Kcals/Kg 25-30 based on IBW 70kg Kcals Calculated 3388-7252 Protein g/k Protein Calculated 70 Fluid: ml 1750-2100ml (1ml/kcal) Nutritional Problem No current Nutrition Prob Problem N/A Malnutrition Alert Protein-Calorie Malnutrition N/A Is there a minimum of two criteria No selected? Query Text:Check all the applicable criteria. A minimum of two criteria are recommended for diagnosis of either severe or non-severe malnutrition. Intervention/Recommendation Comments 1. Continue with regular diet if diet resumed. Nurse to encourage oral intake. 2. Monitor PO intake, wt, labs and skin integrity 3. F/U as high risk in 2-3 days, 07/19-07/20 Expected Outcomes/Goals Expected Outcomes/Goals 1. PO intake to meet at least 75% of nutritional needs. 2. Wt stability, skin to remain intact, labs to approach WNL.
[2017-07-20] MEDS ORDERED: IOHEXOL 300mgI/mL 100 ML VIAL PO ONE (18:26)
[2017-07-21] MEDS: D5-0.45NS 1,000 ML IV SCH (06:13)
[2017-07-21 06:22] LABS: INR 1.06 (0.5-1.4)
[2017-07-21] MEDS: Fish Oil 1,000 MG SGL PO SCH (10:29)
--- NOTE | 2017-07-21 10:29 | Diagnostic Imaging Report ---
CT scan abdomen and pelvis without intravenous contrast HISTORY: Pain Total DLP equals 651 CTDI equals 12.4 Axial sections were obtained from the xiphoid process down to the pubic symphysis. The exam is compromised by patient motion artifact. No definite significant focal hepatic lesions are seen. The spleen appears normal. No focal amenities seen in the region of the pancreas. Vascular calcification noted in the renal hilar areas. There is an approximate 4.3 cm cyst extending off the lateral cortex of the left kidney. Mild perinephric stranding noted on the right side. Acuity is uncertain. Inflammatory change cannot be excluded. The exam of the pelvis demonstrates preservation of normal fat planes. No abnormal soft tissue masses or abnormal fluid collections. Stool-filled nondilated ascending colon is seen. Extensive atherosclerotic vascular calcification noted throughout the abdominal aorta and iliac vessels. Degenerative changes noted in lumbar spine. Surgical changes noted about the right hip. IMPRESSION: 1. Mild right perinephric stranding. Changes may be chronic. Inflammatory change cannot be excluded. Clinical correlation is needed 2. Extensive atherosclerotic vascular changes 3. Left renal cyst
[2017-07-21] MEDS: Multivitamin w/ Minerals Tab PO SCH (10:30)
[2017-07-21] MEDS: Pantoprazole 40 mg EC Tab PO SCH (10:30)
--- NOTE | 2017-07-21 10:41 | Infectious Disease Prog Note ---
Infectious Disease Subjective - Review of Systems Service Date: 07/21/17 Subjective: The patient has a facial rash. Infectious Disease Objective - Results Result Diagrams: 07/18/17 05:45 07/18/17 05:45 Recent Labs: Laboratory Last Values WBC 4.9 Th/cmm (4.8-10.8) 07/18/17 05:45 RBC 4.71 Mil/cmm (4.30-5.70) 07/18/17 05:45 Hgb 15.0 gm/dL (12-16) 07/18/17 05:45 Hct 45.1 % (41.0-60) 07/18/17 05:45 MCV 95.8 fl (80-99) 07/18/17 05:45 MCH 31.9 pg (26.0-30.0) H 07/18/17 05:45 MCHC Differential 33.3 pg (28.0-36.0) 07/18/17 05:45 RDW 13.0 % (11.5-20.0) 07/18/17 05:45 Plt Count 260 Th/cmm (150-400) 07/18/17 05:45 MPV 8.3 fl 07/18/17 05:45 Neutrophils % 40.2 % (40.0-80.0) 07/18/17 05:45 Lymphocytes % 42.2 % (20.0-50.0) 07/18/17 05:45 Monocytes % 8.9 % (2.0-10.0) 07/18/17 05:45 Eosinophils % 8.0 % (0.0-5.0) H 07/18/17 05:45 Basophils % 0.7 % (0.0-2.0) 07/18/17 05:45 PT 11.0 SECONDS (9.5-11.5) 07/21/17 05:35 INR 1.06 (0.5-1.4) 07/21/17 05:35 PTT (Actin FS) 28.3 SECONDS (26.0-38.0) 07/17/17 05:25 Sodium 138 mEq/L (136-145) 07/18/17 05:45 Potassium 4.1 mEq/L (3.5-5.1) 07/18/17 05:45 Chloride 105 mEq/L (98-107) 07/18/17 05:45 Carbon Dioxide 25.8 mEq/L (21.0-31.0) 07/18/17 05:45 Anion Gap 11.3 (7.0-16.0) 07/18/17 05:45 BUN 8 mg/dL (7-25) 07/18/17 05:45 Creatinine 0.7 mg/dL (0.7-1.3) 07/18/17 05:45 Est GFR ( Amer) > 60.0 ml/min (>90) 07/18/17 05:45 Est GFR (Non-Af Amer) > 60.0 ml/min 07/18/17 05:45 BUN/Creatinine Ratio 11.4 07/18/17 05:45 Glucose 99 mg/dL (70-105) 07/18/17 05:45 Whole Bld Lactic Acid 1.20 mmol/L (0.60-1.99) 07/16/17 16:00 Calcium 9.3 mg/dL (8.6-10.3) 07/18/17 05:45 Total Bilirubin 0.2 mg/dL (0.3-1.0) L 07/16/17 16:00 AST 16 U/L (13-39) 07/16/17 16:00 ALT 12 U/L (7-52) 07/16/17 16:00 Alkaline Phosphatase 52 U/L (34-104) 07/16/17 16:00 Creatine Kinase 51 U/L (30-223) 07/16/17 16:00 Troponin I 0.01 ng/mL (0.01-0.05) 07/16/17 16:00 Total Protein 6.7 gm/dL (6.0-8.3) 07/16/17 16:00 Albumin 3.7 gm/dL (4.2-5.5) L 07/16/17 16:00 Globulin 3.0 gm/dL 07/16/17 16:00 Albumin/Globulin Ratio 1.2 (1.0-1.8) 07/16/17 16:00 Prealbumin 25 07/17/17 05:25 Triglycerides 88 mg/dL (<150) 07/17/17 05:25 Cholesterol 157 mg/dL (<200) 07/17/17 05:25 LDL Cholesterol Direct 94 mg/dL (75-193) 07/17/17 05:25 HDL Cholesterol 47 mg/dL (23-92) 07/17/17 05:25 TSH 1.75 uIU/ml (0.34-5.60) 07/17/17 05:25 Urine Source MIDSTREAM 07/16/17 19:00 Urine Color YELLOW 07/16/17 19:00 Urine Clarity CLEAR (CLEAR) 07/16/17 19:00 Urine pH 7.0 (4.6 - 8.0) 07/16/17 19:00 Ur Specific [place] 1.020 (1.005-1.030) 07/16/17 19:00 Urine Protein NEGATIVE mg/dL (NEGATIVE) 07/16/17 19:00 Urine Glucose (UA) NEGATIVE mg/dL (NEGATIVE) 07/16/17 19:00 Urine Ketones NEGATIVE mg/dL (NEGATIVE) 07/16/17 19:00 Urine Blood NEGATIVE (NEGATIVE) 07/16/17 19:00 Urine Nitrate NEGATIVE (NEGATIVE) 07/16/17 19:00 Urine Bilirubin NEGATIVE (NEGATIVE) 07/16/17 19:00 Urine Urobilinogen 0.2 E.U./dL (0.2 - 1.0) 07/16/17 19:00 Ur Leukocyte Esterase NEGATIVE (NEGATIVE) 07/16/17 19:00 Urine RBC 0-2 /hpf (0-5) H 07/16/17 19:00 Urine WBC NONE SEEN /hpf (0-5) 07/16/17 19:00 Ur Epithelial Cells NONE SEEN /lpf (FEW) 07/16/17 19:00 Urine Bacteria NONE SEEN /hpf (NONE SEEN) 07/16/17 19:00 HIV 1&2 Antibody Screen NEGATIVE (NEG) 07/20/17 13:57 - Physical Exam Vitals and I&O: Vital Signs Temp 97.7 F 07/21/17 08:00 Pulse 77 07/21/17 08:00 Resp 19 07/21/17 08:00 BP 145/78 07/21/17 08:00 Pulse Ox 95 07/21/17 08:00 Intake & Output 07/20/17 07/21/17 07/21/17 18:59 06:59 18:59 Intake Total 1000 150 Balance 1000 150 Weight (lbs) 76.657 kg 76.657 kg Intake: Intake, IV Amount 1000 D5-0.45NS 1,000 ml @ 75 1000 mls/hr IV .[id number] [facility] Rx #:[id number] Oral 150 Other: # Voids 3 # Bowel Movements 0 Weight Source Bedscale Bedscale Active Medications: Current Medications Acetaminophen (Tylenol) 650 mg PO Q4HR PRN PRN Reason: Pain or Fever >101 Stop: 09/14/17 21:34 Last Admin: 07/19/17 14:19 Dose: 650 mg Al Hydrox/Mg Hydrox/Simethicone (Maalox) 30 ml PO Q6HR PRN PRN Reason: Heartburn Stop: 09/14/17 21:34 Bisacodyl (Dulcolax 10 Mg Supp) 10 mg RC DAILY PRN PRN Reason: Constipation Stop: 09/14/17 21:34 Last Admin: 07/18/17 05:15 Dose: 10 mg Carbamazepine (Tegretol) 200 mg PO BID JUANITA PRN Reason: Protocol Stop: 09/15/17 08:59 Last Admin: 07/21/17 10:28 Dose: 200 mg Divalproex Sodium (Depakote Er) 750 mg PO BID JUANITA PRN Reason: Protocol Stop: 09/15/17 08:59 Last Admin: 07/21/17 10:29 Dose: 750 mg Docusate Sodium (Colace) 250 mg PO DAILY [facility] Stop: 09/15/17 08:59 Last Admin: 07/21/17 10:29 Dose: 250 mg Fish Oil ([place] 3) 1,000 mg PO DAILY JUANITA Stop: 09/15/17 08:59 Last Admin: 07/21/17 10:29 Dose: 1,000 mg Haloperidol (Haldol) 2.5 mg PO BID JUANITA PRN Reason: Protocol Stop: 09/15/17 08:59 Last Admin: 07/21/17 10:29 Dose: 2.5 mg Hydrocortisone (Hydrocortisone 1%) 1 appl TP BID [facility] Stop: 09/18/17 16:59 Last Admin: 07/21/17 10:29 Dose: 1 appl Dextrose/Sodium Chloride (D5-0.45ns) 1,000 mls @ 75 mls/hr IV .[id number] [facility] Stop: 09/14/17 21:29 Last Admin: 07/21/17 06:13 Dose: 75 mls/hr Loratadine (Claritin) 10 mg PO DAILY JUANITA Stop: 09/15/17 08:59 Last Admin: 07/21/17 10:29 Dose: 10 mg Magnesium Hydroxide (Milk Of Magnesia) 30 ml PO HS PRN PRN Reason: Constipation Stop: 09/14/17 21:34 Last Admin: 07/17/17 22:39 Dose: 30 ml Mupirocin (Bactroban Oint) 1 appl NS BID [facility] Stop: 07/22/17 17:01 Last Admin: 07/21/17 10:30 Dose: 1 appl Olanzapine (Zyprexa) 10 mg PO TID JUANITA PRN Reason: Protocol Stop: 09/15/17 08:59 Last Admin: 07/21/17 10:30 Dose: 10 mg Pantoprazole Sodium (Protonix) 40 mg PO DAILY [facility] Stop: 09/15/17 09:59 Last Admin: 07/21/17 10:30 Dose: 40 mg Psyllium Hydrophilic Mucilloid (Metamucil) 1 pkt PO BID [facility] Stop: 09/15/17 08:59 Last Admin: 07/21/17 10:30 Dose: 1 pkt Sodium Phosphate (Fleet Enema) 135 ml RC Q48H PRN PRN Reason: Constipation Stop: 09/14/17 21:34 General: no acute distress, well developed, well nourished HEENT: atraumatic, normocephalic, PERRLA, EOMI, moist mucous membrane Neck: supple, no thyromegaly Cardiovascular: S1S2, regular Lungs: clear to auscultation bilaterally, clear to percussion Abdomen: soft, no tender, no distended Extremities: no cyanosis, no clubbing, no edema Neurological: awake, alert, oriented Skin: intact Infectious Disease Assmt/Plan - Assessment Assessment: 1. Dehydration 2. acute renal failure 3. epigastric pain improved 4. his hypertension. 5 hyperlipidemia. 6 depression. 7. Dementia. 8. Status post pneumonia. 9. Face rash, likely seborrheic dermatitis 10. Pyelonephritis. - Plan Plan: Continue same management. Hydrocortisone cream, apply to the face. Colonoscopy in AM. Start levaquin. Nutritional Asmnt/Malnutr-PDOC - Dietary Evaluation Malnutrition Findings (Please click <Entered> for more info): Nutritional Asmnt/Malnutrition Start: 07/17/17 15: 32 Text: Status: Complete Freq: Document 07/17/17 15:32 LCHENG (Rec: 07/17/17 16:22 [email or web address]) Nutritional Asmnt/Malnutrition Patient General Information Nutritional Screening High Risk Consult Diagnosis dehydration, FTT Pertinent Medical Hx/Surgical Hx dementia, depression, seizure, HTN, hyperlipidemia Subjective Information Per H&P pt had poor oral intake x 3 days before admission. Pt seen lying in bed at time of visit, awake. Pt reported good appetite, all the food is fine. Pt was on regular diet, now on NPO for KUB. Per IKE Momin, pt ate breakfast well this morning. Poor oral intake before admission may d/t constipation . Current Diet Order/ Nutrition Support NPO Pertinent Medications D5-0.45ns, colace, fish oil, protonix Pertinent Labs 07/17 nutrition labs WNL Nutritional Hx/Data Height 1.73 m Height (Calculated Centimeters) 172.7 Current Weight (lbs) 76.204 kg Weight (Calculated Kilograms) 76.2 Weight (Calculated Grams) 61162.5 [place] Body Weight 154 Body Mass Index (BMI) 25.5 Weight Status Overweight GI Symptoms GI Symptoms None Last BM 0 Difficult in: None Skin Integrity/Comment: abrasion to right leg, left finger and left foot rash to neck and face Estimated Nutritional Goals Calories/Kcals/Kg 25-30 based on IBW 70kg Kcals Calculated 9055-0640 Protein g/k Protein Calculated 70 Fluid: ml 1750-2100ml (1ml/kcal) Nutritional Problem No current Nutrition Prob Problem N/A Malnutrition Alert Protein-Calorie Malnutrition N/A Is there a minimum of two criteria No selected? Query Text:Check all the applicable criteria. A minimum of two criteria are recommended for diagnosis of either severe or non-severe malnutrition. Intervention/Recommendation Comments 1. Continue with regular diet if diet resumed. Nurse to encourage oral intake. 2. Monitor PO intake, wt, labs and skin integrity 3. F/U as high risk in 2-3 days, 07/19-07/20 Expected Outcomes/Goals Expected Outcomes/Goals 1. PO intake to meet at least 75% of nutritional needs. 2. Wt stability, skin to remain intact, labs to approach WNL.
--- NOTE | 2017-07-21 11:14 | GI Progress Note ---
Subjective - Review of Systems Service Date: 07/21/17 Subjective: EVENTS NOTED. NO ABD PAIN TODAY. Objective - Results Result Diagrams: 07/18/17 05:45 07/18/17 05:45 Recent Labs: Laboratory Last Values WBC 4.9 Th/cmm (4.8-10.8) 07/18/17 05:45 RBC 4.71 Mil/cmm (4.30-5.70) 07/18/17 05:45 Hgb 15.0 gm/dL (12-16) 07/18/17 05:45 Hct 45.1 % (41.0-60) 07/18/17 05:45 MCV 95.8 fl (80-99) 07/18/17 05:45 MCH 31.9 pg (26.0-30.0) H 07/18/17 05:45 MCHC Differential 33.3 pg (28.0-36.0) 07/18/17 05:45 RDW 13.0 % (11.5-20.0) 07/18/17 05:45 Plt Count 260 Th/cmm (150-400) 07/18/17 05:45 MPV 8.3 fl 07/18/17 05:45 Neutrophils % 40.2 % (40.0-80.0) 07/18/17 05:45 Lymphocytes % 42.2 % (20.0-50.0) 07/18/17 05:45 Monocytes % 8.9 % (2.0-10.0) 07/18/17 05:45 Eosinophils % 8.0 % (0.0-5.0) H 07/18/17 05:45 Basophils % 0.7 % (0.0-2.0) 07/18/17 05:45 PT 11.0 SECONDS (9.5-11.5) 07/21/17 05:35 INR 1.06 (0.5-1.4) 07/21/17 05:35 PTT (Actin FS) 28.3 SECONDS (26.0-38.0) 07/17/17 05:25 Sodium 138 mEq/L (136-145) 07/18/17 05:45 Potassium 4.1 mEq/L (3.5-5.1) 07/18/17 05:45 Chloride 105 mEq/L (98-107) 07/18/17 05:45 Carbon Dioxide 25.8 mEq/L (21.0-31.0) 07/18/17 05:45 Anion Gap 11.3 (7.0-16.0) 07/18/17 05:45 BUN 8 mg/dL (7-25) 07/18/17 05:45 Creatinine 0.7 mg/dL (0.7-1.3) 07/18/17 05:45 Est GFR ( Amer) > 60.0 ml/min (>90) 07/18/17 05:45 Est GFR (Non-Af Amer) > 60.0 ml/min 07/18/17 05:45 BUN/Creatinine Ratio 11.4 07/18/17 05:45 Glucose 99 mg/dL (70-105) 07/18/17 05:45 Whole Bld Lactic Acid 1.20 mmol/L (0.60-1.99) 07/16/17 16:00 Calcium 9.3 mg/dL (8.6-10.3) 07/18/17 05:45 Total Bilirubin 0.2 mg/dL (0.3-1.0) L 07/16/17 16:00 AST 16 U/L (13-39) 07/16/17 16:00 ALT 12 U/L (7-52) 07/16/17 16:00 Alkaline Phosphatase 52 U/L (34-104) 07/16/17 16:00 Creatine Kinase 51 U/L (30-223) 07/16/17 16:00 Troponin I 0.01 ng/mL (0.01-0.05) 07/16/17 16:00 Total Protein 6.7 gm/dL (6.0-8.3) 07/16/17 16:00 Albumin 3.7 gm/dL (4.2-5.5) L 07/16/17 16:00 Globulin 3.0 gm/dL 07/16/17 16:00 Albumin/Globulin Ratio 1.2 (1.0-1.8) 07/16/17 16:00 Prealbumin 25 07/17/17 05:25 Triglycerides 88 mg/dL (<150) 07/17/17 05:25 Cholesterol 157 mg/dL (<200) 07/17/17 05:25 LDL Cholesterol Direct 94 mg/dL (75-193) 07/17/17 05:25 HDL Cholesterol 47 mg/dL (23-92) 07/17/17 05:25 TSH 1.75 uIU/ml (0.34-5.60) 07/17/17 05:25 Urine Source MIDSTREAM 07/16/17 19:00 Urine Color YELLOW 07/16/17 19:00 Urine Clarity CLEAR (CLEAR) 07/16/17 19:00 Urine pH 7.0 (4.6 - 8.0) 07/16/17 19:00 Ur Specific [place] 1.020 (1.005-1.030) 07/16/17 19:00 Urine Protein NEGATIVE mg/dL (NEGATIVE) 07/16/17 19:00 Urine Glucose (UA) NEGATIVE mg/dL (NEGATIVE) 07/16/17 19:00 Urine Ketones NEGATIVE mg/dL (NEGATIVE) 07/16/17 19:00 Urine Blood NEGATIVE (NEGATIVE) 07/16/17 19:00 Urine Nitrate NEGATIVE (NEGATIVE) 07/16/17 19:00 Urine Bilirubin NEGATIVE (NEGATIVE) 07/16/17 19:00 Urine Urobilinogen 0.2 E.U./dL (0.2 - 1.0) 07/16/17 19:00 Ur Leukocyte Esterase NEGATIVE (NEGATIVE) 07/16/17 19:00 Urine RBC 0-2 /hpf (0-5) H 07/16/17 19:00 Urine WBC NONE SEEN /hpf (0-5) 07/16/17 19:00 Ur Epithelial Cells NONE SEEN /lpf (FEW) 07/16/17 19:00 Urine Bacteria NONE SEEN /hpf (NONE SEEN) 07/16/17 19:00 HIV 1&2 Antibody Screen NEGATIVE (NEG) 07/20/17 13:57 - Physical Exam Vitals and I&O: Vital Signs Temp 97.7 F 07/21/17 08:00 Pulse 77 07/21/17 08:00 Resp 19 07/21/17 08:00 BP 145/78 07/21/17 08:00 Pulse Ox 95 07/21/17 08:00 Intake & Output 07/20/17 07/21/17 07/21/17 18:59 06:59 18:59 Intake Total 1000 150 Balance 1000 150 Weight (lbs) 76.657 kg 76.657 kg Intake: Intake, IV Amount 1000 D5-0.45NS 1,000 ml @ 75 1000 mls/hr IV .[id number] [facility] Rx #:[id number] Oral 150 Other: # Voids 3 # Bowel Movements 0 Weight Source Bedscale Bedscale Active Medications: Current Medications Acetaminophen (Tylenol) 650 mg PO Q4HR PRN PRN Reason: Pain or Fever >101 Stop: 09/14/17 21:34 Last Admin: 07/19/17 14:19 Dose: 650 mg Al Hydrox/Mg Hydrox/Simethicone (Maalox) 30 ml PO Q6HR PRN PRN Reason: Heartburn Stop: 09/14/17 21:34 Bisacodyl (Dulcolax 10 Mg Supp) 10 mg RC DAILY PRN PRN Reason: Constipation Stop: 09/14/17 21:34 Last Admin: 07/18/17 05:15 Dose: 10 mg Carbamazepine (Tegretol) 200 mg PO BID JUANITA PRN Reason: Protocol Stop: 09/15/17 08:59 Last Admin: 07/21/17 10:28 Dose: 200 mg Divalproex Sodium (Depakote Er) 750 mg PO BID JUANITA PRN Reason: Protocol Stop: 09/15/17 08:59 Last Admin: 07/21/17 10:29 Dose: 750 mg Docusate Sodium (Colace) 250 mg PO DAILY JUANITA Stop: 09/15/17 08:59 Last Admin: 07/21/17 10:29 Dose: 250 mg Fish Oil ([place] 3) 1,000 mg PO DAILY JUANITA Stop: 09/15/17 08:59 Last Admin: 07/21/17 10:29 Dose: 1,000 mg Haloperidol (Haldol) 2.5 mg PO BID JUANITA PRN Reason: Protocol Stop: 09/15/17 08:59 Last Admin: 07/21/17 10:29 Dose: 2.5 mg Hydrocortisone (Hydrocortisone 1%) 1 appl TP BID JUANITA Stop: 09/18/17 16:59 Last Admin: 07/21/17 10:29 Dose: 1 appl Dextrose/Sodium Chloride (D5-0.45ns) 1,000 mls @ 75 mls/hr IV .[id number] JUANITA Stop: 09/14/17 21:29 Last Admin: 07/21/17 06:13 Dose: 75 mls/hr Levofloxacin (Levaquin) 500 mg PO DAILY JUANITA Stop: 09/20/17 08:59 Loratadine (Claritin) 10 mg PO DAILY JUANITA Stop: 09/15/17 08:59 Last Admin: 07/21/17 10:29 Dose: 10 mg Magnesium Hydroxide (Milk Of Magnesia) 30 ml PO HS PRN PRN Reason: Constipation Stop: 09/14/17 21:34 Last Admin: 07/17/17 22:39 Dose: 30 ml Mupirocin (Bactroban Oint) 1 appl NS BID [facility] Stop: 07/22/17 17:01 Last Admin: 07/21/17 10:30 Dose: 1 appl Olanzapine (Zyprexa) 10 mg PO TID JUANITA PRN Reason: Protocol Stop: 09/15/17 08:59 Last Admin: 07/21/17 10:30 Dose: 10 mg Pantoprazole Sodium (Protonix) 40 mg PO DAILY [facility] Stop: 09/15/17 09:59 Last Admin: 07/21/17 10:30 Dose: 40 mg Psyllium Hydrophilic Mucilloid (Metamucil) 1 pkt PO BID [facility] Stop: 09/15/17 08:59 Last Admin: 07/21/17 10:30 Dose: 1 pkt Sodium Phosphate (Fleet Enema) 135 ml RC Q48H PRN PRN Reason: Constipation Stop: 09/14/17 21:34 General: Alert, No acute distress Neck: Supple Cardiovascular: Regular rate Lungs: Clear to auscultation Abdomen: Bowel sounds, Soft, no Tender, no Distended Assessment/Plan - Assessment Assessment: IMPRESSION: 1. ABD PAIN. 2. CHANGE IN BOWEL HABITS. 3. MR. RECS: 1. EGD AND COLONOSCOPY TOMORROW - NOT DONE PREVIOUSLY. 2. BOWEL PREP TODAY. 3. CHECK CT A/P TODAY. 4. CLEAR LIQUIDS. 5. PROTONIX.
[2017-07-21] MEDS ORDERED: Magnesium Citrate 1.75 GM/300 mL Bottle PO ONE (20:03)
[2017-07-21] MEDS: Lactulose 10 Gm/15 mL 30mL UDC PO SCH (22:23)
[2017-07-22] MEDS: D5-0.45NS 1,000 ML IV SCH ×3 (01:54→14:00)
[2017-07-22] MEDS: Lactulose 10 Gm/15 mL 30mL UDC PO SCH (02:23)
--- NOTE | 2017-07-22 09:53 | Infectious Disease Prog Note ---
Infectious Disease Subjective - Review of Systems Service Date: 07/22/17 Subjective: The patient has a facial rash. Infectious Disease Objective - Results Result Diagrams: 07/18/17 05:45 07/18/17 05:45 Recent Labs: Laboratory Last Values WBC 4.9 Th/cmm (4.8-10.8) 07/18/17 05:45 RBC 4.71 Mil/cmm (4.30-5.70) 07/18/17 05:45 Hgb 15.0 gm/dL (12-16) 07/18/17 05:45 Hct 45.1 % (41.0-60) 07/18/17 05:45 MCV 95.8 fl (80-99) 07/18/17 05:45 MCH 31.9 pg (26.0-30.0) H 07/18/17 05:45 MCHC Differential 33.3 pg (28.0-36.0) 07/18/17 05:45 RDW 13.0 % (11.5-20.0) 07/18/17 05:45 Plt Count 260 Th/cmm (150-400) 07/18/17 05:45 MPV 8.3 fl 07/18/17 05:45 Neutrophils % 40.2 % (40.0-80.0) 07/18/17 05:45 Lymphocytes % 42.2 % (20.0-50.0) 07/18/17 05:45 Monocytes % 8.9 % (2.0-10.0) 07/18/17 05:45 Eosinophils % 8.0 % (0.0-5.0) H 07/18/17 05:45 Basophils % 0.7 % (0.0-2.0) 07/18/17 05:45 PT 11.0 SECONDS (9.5-11.5) 07/21/17 05:35 INR 1.06 (0.5-1.4) 07/21/17 05:35 PTT (Actin FS) 28.3 SECONDS (26.0-38.0) 07/17/17 05:25 Sodium 138 mEq/L (136-145) 07/18/17 05:45 Potassium 4.1 mEq/L (3.5-5.1) 07/18/17 05:45 Chloride 105 mEq/L (98-107) 07/18/17 05:45 Carbon Dioxide 25.8 mEq/L (21.0-31.0) 07/18/17 05:45 Anion Gap 11.3 (7.0-16.0) 07/18/17 05:45 BUN 8 mg/dL (7-25) 07/18/17 05:45 Creatinine 0.7 mg/dL (0.7-1.3) 07/18/17 05:45 Est GFR ( Amer) > 60.0 ml/min (>90) 07/18/17 05:45 Est GFR (Non-Af Amer) > 60.0 ml/min 07/18/17 05:45 BUN/Creatinine Ratio 11.4 07/18/17 05:45 Glucose 99 mg/dL (70-105) 07/18/17 05:45 Whole Bld Lactic Acid 1.20 mmol/L (0.60-1.99) 07/16/17 16:00 Calcium 9.3 mg/dL (8.6-10.3) 07/18/17 05:45 Total Bilirubin 0.2 mg/dL (0.3-1.0) L 07/16/17 16:00 AST 16 U/L (13-39) 07/16/17 16:00 ALT 12 U/L (7-52) 07/16/17 16:00 Alkaline Phosphatase 52 U/L (34-104) 07/16/17 16:00 Creatine Kinase 51 U/L (30-223) 07/16/17 16:00 Troponin I 0.01 ng/mL (0.01-0.05) 07/16/17 16:00 Total Protein 6.7 gm/dL (6.0-8.3) 07/16/17 16:00 Albumin 3.7 gm/dL (4.2-5.5) L 07/16/17 16:00 Globulin 3.0 gm/dL 07/16/17 16:00 Albumin/Globulin Ratio 1.2 (1.0-1.8) 07/16/17 16:00 Prealbumin 25 07/17/17 05:25 Triglycerides 88 mg/dL (<150) 07/17/17 05:25 Cholesterol 157 mg/dL (<200) 07/17/17 05:25 LDL Cholesterol Direct 94 mg/dL (75-193) 07/17/17 05:25 HDL Cholesterol 47 mg/dL (23-92) 07/17/17 05:25 TSH 1.75 uIU/ml (0.34-5.60) 07/17/17 05:25 Urine Source MIDSTREAM 07/16/17 19:00 Urine Color YELLOW 07/16/17 19:00 Urine Clarity CLEAR (CLEAR) 07/16/17 19:00 Urine pH 7.0 (4.6 - 8.0) 07/16/17 19:00 Ur Specific [place] 1.020 (1.005-1.030) 07/16/17 19:00 Urine Protein NEGATIVE mg/dL (NEGATIVE) 07/16/17 19:00 Urine Glucose (UA) NEGATIVE mg/dL (NEGATIVE) 07/16/17 19:00 Urine Ketones NEGATIVE mg/dL (NEGATIVE) 07/16/17 19:00 Urine Blood NEGATIVE (NEGATIVE) 07/16/17 19:00 Urine Nitrate NEGATIVE (NEGATIVE) 07/16/17 19:00 Urine Bilirubin NEGATIVE (NEGATIVE) 07/16/17 19:00 Urine Urobilinogen 0.2 E.U./dL (0.2 - 1.0) 07/16/17 19:00 Ur Leukocyte Esterase NEGATIVE (NEGATIVE) 07/16/17 19:00 Urine RBC 0-2 /hpf (0-5) H 07/16/17 19:00 Urine WBC NONE SEEN /hpf (0-5) 07/16/17 19:00 Ur Epithelial Cells NONE SEEN /lpf (FEW) 07/16/17 19:00 Urine Bacteria NONE SEEN /hpf (NONE SEEN) 07/16/17 19:00 HIV 1&2 Antibody Screen NEGATIVE (NEG) 07/20/17 13:57 - Physical Exam Vitals and I&O: Vital Signs Temp 97.1 F 07/22/17 08:00 Pulse 64 07/22/17 08:00 Resp 16 07/22/17 08:00 BP 130/73 07/22/17 08:00 Pulse Ox 97 07/22/17 08:00 Intake & Output 07/21/17 07/22/17 07/22/17 18:59 06:59 18:59 Intake Total 150 1338.75 Balance 150 1338.75 Weight (lbs) 76.657 kg 73.482 kg Intake: Intake, IV Amount 1038.75 D5-0.45NS 1,000 ml @ 75 1038.75 mls/hr IV .[id number] [facility] Rx #:[id number] Oral 150 300 Other: # Voids 3 3 # Bowel Movements 0 Weight Source Bedscale Patient stated Active Medications: Current Medications Acetaminophen (Tylenol) 650 mg PO Q4HR PRN PRN Reason: Pain or Fever >101 Stop: 09/14/17 21:34 Last Admin: 07/19/17 14:19 Dose: 650 mg Al Hydrox/Mg Hydrox/Simethicone (Maalox) 30 ml PO Q6HR PRN PRN Reason: Heartburn Stop: 09/14/17 21:34 Bisacodyl (Dulcolax 10 Mg Supp) 10 mg RC DAILY PRN PRN Reason: Constipation Stop: 09/14/17 21:34 Last Admin: 07/18/17 05:15 Dose: 10 mg Carbamazepine (Tegretol) 200 mg PO BID JUANITA PRN Reason: Protocol Stop: 09/15/17 08:59 Last Admin: 07/21/17 16:23 Dose: 200 mg Divalproex Sodium (Depakote Er) 750 mg PO BID JUANITA PRN Reason: Protocol Stop: 09/15/17 08:59 Last Admin: 07/21/17 16:23 Dose: 750 mg Docusate Sodium (Colace) 250 mg PO DAILY JUANITA Stop: 09/15/17 08:59 Last Admin: 07/21/17 10:29 Dose: 250 mg Fish Oil ([place] 3) 1,000 mg PO DAILY JUANITA Stop: 09/15/17 08:59 Last Admin: 07/21/17 10:29 Dose: 1,000 mg Haloperidol (Haldol) 2.5 mg PO BID JUANITA PRN Reason: Protocol Stop: 09/15/17 08:59 Last Admin: 07/21/17 16:23 Dose: 2.5 mg Hydrocortisone (Hydrocortisone 1%) 1 appl TP BID JUANITA Stop: 09/18/17 16:59 Last Admin: 07/22/17 09:33 Dose: 1 appl Dextrose/Sodium Chloride (D5-0.45ns) 1,000 mls @ 75 mls/hr IV .[id number] JUANITA Stop: 09/14/17 21:29 Last Admin: 07/22/17 02:25 Dose: 75 mls/hr Levofloxacin (Levaquin) 500 mg PO DAILY [facility] [place] Stop: 09/20/17 08:59 Loratadine (Claritin) 10 mg PO DAILY JUANITA Stop: 09/15/17 08:59 Last Admin: 07/21/17 10:29 Dose: 10 mg Magnesium Hydroxide (Milk Of Magnesia) 30 ml PO HS PRN PRN Reason: Constipation Stop: 09/14/17 21:34 Last Admin: 07/17/17 22:39 Dose: 30 ml Mupirocin (Bactroban Oint) 1 appl NS BID JUANITA Stop: 07/22/17 17:01 Last Admin: 07/22/17 09:33 Dose: 1 appl Olanzapine (Zyprexa) 10 mg PO TID JUANITA PRN Reason: Protocol Stop: 09/15/17 08:59 Last Admin: 07/21/17 22:18 Dose: 10 mg Pantoprazole Sodium (Protonix) 40 mg PO DAILY JUANITA Stop: 09/15/17 09:59 Last Admin: 07/21/17 10:30 Dose: 40 mg Psyllium Hydrophilic Mucilloid (Metamucil) 1 pkt PO BID JUANITA Stop: 09/15/17 08:59 Last Admin: 07/21/17 16:24 Dose: 1 pkt Sodium Phosphate (Fleet Enema) 135 ml RC Q48H PRN PRN Reason: Constipation Stop: 09/14/17 21:34 General: no acute distress, well developed, well nourished HEENT: atraumatic, normocephalic, PERRLA Neck: supple, no thyromegaly Cardiovascular: S1S2, regular Lungs: clear to auscultation bilaterally, clear to percussion Abdomen: soft, no tender, no distended, no mass, no rebound Extremities: no cyanosis, no clubbing Neurological: awake, alert, oriented Skin: intact Infectious Disease Assmt/Plan - Assessment Assessment: 1. Dehydration 2. acute renal failure 3. epigastric pain improved 4. his hypertension. 5 hyperlipidemia. 6 depression. 7. Dementia. 8. Status post pneumonia. 9. Face rash, likely seborrheic dermatitis 10. Pyelonephritis. - Plan Plan: Continue same management. Hydrocortisone cream, apply to the face. Colonoscopy in AM. Continue levaquin for 6 more days. If Colonscopy remains normal ay dc patient to SNF. levaquin. Nutritional Asmnt/Malnutr-PDOC - Dietary Evaluation Malnutrition Findings (Please click <Entered> for more info): Nutritional Asmnt/Malnutrition Start: 07/17/17 15: 32 Text: Status: Complete Freq: Document 07/17/17 15:32 [email or web address] (Rec: 07/17/17 16:22 LCVENUG [email or web address]) Nutritional Asmnt/Malnutrition Patient General Information Nutritional Screening High Risk Consult Diagnosis dehydration, FTT Pertinent Medical Hx/Surgical Hx dementia, depression, seizure, HTN, hyperlipidemia Subjective Information Per H&P pt had poor oral intake x 3 days before admission. Pt seen lying in bed at time of visit, awake. Pt reported good appetite, all the food is fine. Pt was on regular diet, now on NPO for KUB. Per IKE Momin, pt ate breakfast well this morning. Poor oral intake before admission july d/t constipation . Current Diet Order/ Nutrition Support NPO Pertinent Medications D5-0.45ns, colace, fish oil, protonix Pertinent Labs 07/17 nutrition labs WNL Nutritional Hx/Data Height 1.73 m Height (Calculated Centimeters) 172.7 Current Weight (lbs) 76.204 kg Weight (Calculated Kilograms) 76.2 Weight (Calculated Grams) 91365.5 [place] Body Weight 154 Body Mass Index (BMI) 25.5 Weight Status Overweight GI Symptoms GI Symptoms None Last BM 0 Difficult in: None Skin Integrity/Comment: abrasion to right leg, left finger and left foot rash to neck and face Estimated Nutritional Goals Calories/Kcals/Kg 25-30 based on IBW 70kg Kcals Calculated 4201-0702 Protein g/k Protein Calculated 70 Fluid: ml 1750-2100ml (1ml/kcal) Nutritional Problem No current Nutrition Prob Problem N/A Malnutrition Alert Protein-Calorie Malnutrition N/A Is there a minimum of two criteria No selected? Query Text:Check all the applicable criteria. A minimum of two criteria are recommended for diagnosis of either severe or non-severe malnutrition. Intervention/Recommendation Comments 1. Continue with regular diet if diet resumed. Nurse to encourage oral intake. 2. Monitor PO intake, wt, labs and skin integrity 3. F/U as high risk in 2-3 days, 07/19-07/20 Expected Outcomes/Goals Expected Outcomes/Goals 1. PO intake to meet at least 75% of nutritional needs. 2. Wt stability, skin to remain intact, labs to approach WNL.
[2017-07-22 11:55] LABS: % BASOPHILS 0.4 % (0.0-2.0); % LYMPHOCYTES 30.1 % (20.0-50.0); % NEUTROPHILS 55.5 % (40.0-80.0); EOSINOPHILE ABSOLUTE 0.5 Th/cmm (0.1-0.4); HEMATOCRIT 40.6 % (41.0-60); HEMOGLOBIN 13.6 gm/dL (12-16); LYMPHOCYTE ABSOLUTE 2.3 Th/cmm (1.5-3.0); MEAN CELL VOLUME 97.2 fl (80-99); MEAN CORPUSCULAR HEMOGLOBIN 32.6 pg (26.0-30.0); MEAN CORPUSCULAR HGB CONC 33.6 pg (28.0-36.0); MEAN PLATELET VOLUME 7.8 fl; MONOCYTE ABSOLUTE 0.5 Th/cmm (0.3-1.0); NEUTROPHILE ABSOLUTE 4.4 Th/cmm (1.8-8.0); PLATELET COUNT 239 Th/cmm (150-400); RED BLOOD COUNT 4.18 Mil/cmm (4.30-5.70); RED CELL DISTRIBUTION WIDTH 13.1 % (11.5-20.0); WHITE BLOOD COUNT 7.7 Th/cmm (4.8-10.8)
[2017-07-22 12:07] LABS: INR 1.09 (0.5-1.4); PROTHROMBIN TIME (TEST) 11.3 SECONDS (9.5-11.5)
[2017-07-22 12:09] LABS: ANION GAP 10.1 (7.0-16.0); BUN - UREA NITROGEN 7 mg/dL (7-25); CALCIUM SERUM 8.7 mg/dL (8.6-10.3); CARBON DIOXIDE 25.8 mEq/L (21.0-31.0); CHLORIDE 97 mEq/L (98-107); CREATININE - SERUM 0.6 mg/dL (0.7-1.3); GFR AFRICAN-AMERICAN > 60.0 ml/min (>90); GFR NON AFRICAN-AMERICAN > 60.0 ml/min; GLUCOSE 93 mg/dL (70-105); POTASSIUM SERUM 3.9 mEq/L (3.5-5.1); SODIUM SERUM 129 mEq/L (136-145)
[2017-07-22] MEDS ORDERED: Lidocaine 2% Gel 5 mL TP ONE (13:00)
[2017-07-22] MEDS ORDERED: Propofol 10 mg/mL 20mL Vial **SURGERY USE ONLY IV ONE (13:00)
[2017-07-22] MEDS: Multivitamin w/ Minerals Tab PO SCH (14:57)
[2017-07-22] MEDS: Pantoprazole 40 mg EC Tab PO SCH (14:58)
[2017-07-22] MEDS: Fish Oil 1,000 MG SGL PO SCH (14:58)
--- NOTE | 2017-07-22 16:06 | Operative Report ---
DATE OF SURGERY: 07/22/2017 INPATIENT GASTROINTESTINAL PROCEDURE NAME OF PROCEDURE: EGD with biopsy. REFERRING PHYSICIAN: Dr. Bourne. REASON FOR PROCEDURE: Change in bowel habits. CONSENT: Risks, benefits, alternatives, nature, indication, possible outcomes were discussed. Mentioned bleeding, infection, perforation, , disability, cardiopulmonary distress and arrest, missed lesion and cancers, need for surgery. The patient expressed understanding and provided informed consent. PREOPERATIVE DIAGNOSES: Abdominal pain, change in bowel habits, and mental retardation. POSTOPERATIVE DIAGNOSES: Hiatal hernia and gastritis. MEDICATIONS: Provided by anesthesiologist due to the patient's mental retardation and oxygen requirements. DESCRIPTION OF PROCEDURE: The patient placed in left side. Upper endoscope advanced from mouth and second portion of duodenum. Scope brought back in stomach. Retroflexion view of fundus, cardia, lesser curvature. Scope was straightened. Biopsies were taken. Scope was removed. COMPLICATIONS: None. FINDINGS: 1. GE junction at 40 cm with a medium size hiatal hernia. 2. Gastritis, status post biopsy. 3. Normal duodenum. RECOMMENDATIONS: 1. Follow up on biopsy. 2. Colonoscopy could not be done because the patient was refusing bowel prep, which can be done when the patient is agreeable for bowel prep. 3. Provide the patient with Protonix. Thank you for allowing me to participate. Please call me if any questions. JOB# [id number]
[2017-07-23] MEDS: D5-0.45NS 1,000 ML IV SCH (06:31)
--- NOTE | 2017-07-23 07:34 | GI Progress Note ---
Subjective - Review of Systems Subjective: NO EVENTS Objective - Results Result Diagrams: 07/22/17 11:45 07/22/17 11:45 Recent Labs: Laboratory Last Values WBC 7.7 Th/cmm (4.8-10.8) 07/22/17 11:45 RBC 4.18 Mil/cmm (4.30-5.70) L 07/22/17 11:45 Hgb 13.6 gm/dL (12-16) 07/22/17 11:45 Hct 40.6 % (41.0-60) L 07/22/17 11:45 MCV 97.2 fl (80-99) 07/22/17 11:45 MCH 32.6 pg (26.0-30.0) H 07/22/17 11:45 MCHC Differential 33.6 pg (28.0-36.0) 07/22/17 11:45 RDW 13.1 % (11.5-20.0) 07/22/17 11:45 Plt Count 239 Th/cmm (150-400) 07/22/17 11:45 MPV 7.8 fl 07/22/17 11:45 Neutrophils % 55.5 % (40.0-80.0) 07/22/17 11:45 Lymphocytes % 30.1 % (20.0-50.0) 07/22/17 11:45 Monocytes % 7.0 % (2.0-10.0) 07/22/17 11:45 Eosinophils % 7.0 % (0.0-5.0) H 07/22/17 11:45 Basophils % 0.4 % (0.0-2.0) 07/22/17 11:45 PT 11.3 SECONDS (9.5-11.5) 07/22/17 11:45 INR 1.09 (0.5-1.4) 07/22/17 11:45 PTT (Actin FS) 28.3 SECONDS (26.0-38.0) 07/17/17 05:25 Sodium 129 mEq/L (136-145) L 07/22/17 11:45 Potassium 3.9 mEq/L (3.5-5.1) 07/22/17 11:45 Chloride 97 mEq/L (98-107) L 07/22/17 11:45 Carbon Dioxide 25.8 mEq/L (21.0-31.0) 07/22/17 11:45 Anion Gap 10.1 (7.0-16.0) 07/22/17 11:45 BUN 7 mg/dL (7-25) 07/22/17 11:45 Creatinine 0.6 mg/dL (0.7-1.3) L 07/22/17 11:45 Est GFR ( Amer) > 60.0 ml/min (>90) 07/22/17 11:45 Est GFR (Non-Af Amer) > 60.0 ml/min 07/22/17 11:45 BUN/Creatinine Ratio 11.7 07/22/17 11:45 Glucose 93 mg/dL (70-105) 07/22/17 11:45 Whole Bld Lactic Acid 1.20 mmol/L (0.60-1.99) 07/16/17 16:00 Calcium 8.7 mg/dL (8.6-10.3) 07/22/17 11:45 Total Bilirubin 0.2 mg/dL (0.3-1.0) L 07/16/17 16:00 AST 16 U/L (13-39) 07/16/17 16:00 ALT 12 U/L (7-52) 07/16/17 16:00 Alkaline Phosphatase 52 U/L (34-104) 07/16/17 16:00 Creatine Kinase 51 U/L (30-223) 07/16/17 16:00 Troponin I 0.01 ng/mL (0.01-0.05) 07/16/17 16:00 Total Protein 6.7 gm/dL (6.0-8.3) 07/16/17 16:00 Albumin 3.7 gm/dL (4.2-5.5) L 07/16/17 16:00 Globulin 3.0 gm/dL 07/16/17 16:00 Albumin/Globulin Ratio 1.2 (1.0-1.8) 07/16/17 16:00 Prealbumin 25 07/17/17 05:25 Triglycerides 88 mg/dL (<150) 07/17/17 05:25 Cholesterol 157 mg/dL (<200) 07/17/17 05:25 LDL Cholesterol Direct 94 mg/dL (75-193) 07/17/17 05:25 HDL Cholesterol 47 mg/dL (23-92) 07/17/17 05:25 TSH 1.75 uIU/ml (0.34-5.60) 07/17/17 05:25 Urine Source MIDSTREAM 07/16/17 19:00 Urine Color YELLOW 07/16/17 19:00 Urine Clarity CLEAR (CLEAR) 07/16/17 19:00 Urine pH 7.0 (4.6 - 8.0) 07/16/17 19:00 Ur Specific [place] 1.020 (1.005-1.030) 07/16/17 19:00 Urine Protein NEGATIVE mg/dL (NEGATIVE) 07/16/17 19:00 Urine Glucose (UA) NEGATIVE mg/dL (NEGATIVE) 07/16/17 19:00 Urine Ketones NEGATIVE mg/dL (NEGATIVE) 07/16/17 19:00 Urine Blood NEGATIVE (NEGATIVE) 07/16/17 19:00 Urine Nitrate NEGATIVE (NEGATIVE) 07/16/17 19:00 Urine Bilirubin NEGATIVE (NEGATIVE) 07/16/17 19:00 Urine Urobilinogen 0.2 E.U./dL (0.2 - 1.0) 07/16/17 19:00 Ur Leukocyte Esterase NEGATIVE (NEGATIVE) 07/16/17 19:00 Urine RBC 0-2 /hpf (0-5) H 07/16/17 19:00 Urine WBC NONE SEEN /hpf (0-5) 07/16/17 19:00 Ur Epithelial Cells NONE SEEN /lpf (FEW) 07/16/17 19:00 Urine Bacteria NONE SEEN /hpf (NONE SEEN) 07/16/17 19:00 HIV 1&2 Antibody Screen NEGATIVE (NEG) 07/20/17 13:57 - Physical Exam Vitals and I&O: Vital Signs Temp 98.4 F 07/23/17 04:00 Pulse 64 07/23/17 04:00 Resp 16 07/23/17 04:00 BP 140/68 07/23/17 04:00 Pulse Ox 96 07/23/17 04:00 Intake & Output 07/22/17 07/23/17 07/23/17 18:59 06:59 18:59 Intake Total 868.75 1150 Balance 868.75 1150 Weight (lbs) 73.482 kg Intake: Intake, IV Amount 868.75 1000 D5-0.45NS 1,000 ml @ 75 868.75 1000 mls/hr IV .[id number] [facility] Rx #:[id number] Oral 150 Other: # Voids 2 # Bowel Movements 0 Weight Source Bedscale Active Medications: Current Medications Acetaminophen (Tylenol) 650 mg PO Q4HR PRN PRN Reason: Pain or Fever >101 Stop: 09/14/17 21:34 Last Admin: 07/23/17 06:31 Dose: 650 mg Al Hydrox/Mg Hydrox/Simethicone (Maalox) 30 ml PO Q6HR PRN PRN Reason: Heartburn Stop: 09/14/17 21:34 Last Admin: 07/23/17 06:31 Dose: 30 ml Bisacodyl (Dulcolax 10 Mg Supp) 10 mg RC DAILY PRN PRN Reason: Constipation Stop: 09/14/17 21:34 Last Admin: 07/18/17 05:15 Dose: 10 mg Carbamazepine (Tegretol) 200 mg PO BID JUANITA PRN Reason: Protocol Stop: 09/15/17 08:59 Last Admin: 07/22/17 16:12 Dose: 200 mg Divalproex Sodium (Depakote Er) 750 mg PO BID JUANITA PRN Reason: Protocol Stop: 09/15/17 08:59 Last Admin: 07/22/17 16:11 Dose: 750 mg Docusate Sodium (Colace) 250 mg PO DAILY JUANITA Stop: 09/15/17 08:59 Last Admin: 07/22/17 14:57 Dose: 250 mg Fish Oil ([place] 3) 1,000 mg PO DAILY JUANITA Stop: 09/15/17 08:59 Last Admin: 07/22/17 14:58 Dose: 1,000 mg Haloperidol (Haldol) 2.5 mg PO BID JUANITA PRN Reason: Protocol Stop: 09/15/17 08:59 Last Admin: 07/22/17 16:12 Dose: 2.5 mg Hydrocortisone (Hydrocortisone 1%) 1 appl TP BID JUANITA Stop: 09/18/17 16:59 Last Admin: 07/22/17 16:16 Dose: 1 appl Dextrose/Sodium Chloride (D5-0.45ns) 1,000 mls @ 75 mls/hr IV .[id number] JUANITA Stop: 09/14/17 21:29 Last Admin: 07/23/17 06:31 Dose: 75 mls/hr Levofloxacin (Levaquin) 500 mg PO DAILY [facility] Stop: 09/20/17 08:59 Last Admin: 07/22/17 14:58 Dose: 500 mg Loratadine (Claritin) 10 mg PO DAILY [facility] Stop: 09/15/17 08:59 Last Admin: 07/22/17 14:58 Dose: 10 mg Magnesium Hydroxide (Milk Of Magnesia) 30 ml PO HS PRN PRN Reason: Constipation Stop: 09/14/17 21:34 Last Admin: 07/17/17 22:39 Dose: 30 ml Olanzapine (Zyprexa) 10 mg PO TID JUANITA PRN Reason: Protocol Stop: 09/15/17 08:59 Last Admin: 07/22/17 22:33 Dose: 10 mg Pantoprazole Sodium (Protonix) 40 mg PO DAILY [facility] Stop: 09/15/17 09:59 Last Admin: 07/22/17 14:58 Dose: 40 mg Psyllium Hydrophilic Mucilloid (Metamucil) 1 pkt PO BID [facility] Stop: 09/15/17 08:59 Last Admin: 07/22/17 16:12 Dose: 1 pkt Sodium Phosphate (Fleet Enema) 135 ml RC Q48H PRN PRN Reason: Constipation Stop: 09/14/17 21:34 General: Alert, No acute distress Neck: Supple Cardiovascular: Regular rate Lungs: Clear to auscultation Abdomen: Bowel sounds, Soft, no Tender, no Distended Assessment/Plan - Assessment Assessment: 56 YO MALE WITH CHANGE IN BOWEL HABITS EGD SHOWED HIATAL HERNIA AND GASTRITIS LFTS NORMAL NO DIARRHEA SO FAR 1.COLO COULD NOT BE DONE SINCE PT WOULD NOT DRINK BOWEL PREP 2.AWAIT BX 3.CONT PROTONIX 4.STOOL STUDIES
--- NOTE | 2017-07-23 08:33 | Infectious Disease Prog Note ---
Infectious Disease Subjective - Review of Systems Service Date: 07/23/17 Subjective: The patient has a facial rash improving.. Infectious Disease Objective - Results Result Diagrams: 07/22/17 11:45 07/22/17 11:45 Recent Labs: Laboratory Last Values WBC 7.7 Th/cmm (4.8-10.8) 07/22/17 11:45 RBC 4.18 Mil/cmm (4.30-5.70) L 07/22/17 11:45 Hgb 13.6 gm/dL (12-16) 07/22/17 11:45 Hct 40.6 % (41.0-60) L 07/22/17 11:45 MCV 97.2 fl (80-99) 07/22/17 11:45 MCH 32.6 pg (26.0-30.0) H 07/22/17 11:45 MCHC Differential 33.6 pg (28.0-36.0) 07/22/17 11:45 RDW 13.1 % (11.5-20.0) 07/22/17 11:45 Plt Count 239 Th/cmm (150-400) 07/22/17 11:45 MPV 7.8 fl 07/22/17 11:45 Neutrophils % 55.5 % (40.0-80.0) 07/22/17 11:45 Lymphocytes % 30.1 % (20.0-50.0) 07/22/17 11:45 Monocytes % 7.0 % (2.0-10.0) 07/22/17 11:45 Eosinophils % 7.0 % (0.0-5.0) H 07/22/17 11:45 Basophils % 0.4 % (0.0-2.0) 07/22/17 11:45 PT 11.3 SECONDS (9.5-11.5) 07/22/17 11:45 INR 1.09 (0.5-1.4) 07/22/17 11:45 PTT (Actin FS) 28.3 SECONDS (26.0-38.0) 07/17/17 05:25 Sodium 129 mEq/L (136-145) L 07/22/17 11:45 Potassium 3.9 mEq/L (3.5-5.1) 07/22/17 11:45 Chloride 97 mEq/L (98-107) L 07/22/17 11:45 Carbon Dioxide 25.8 mEq/L (21.0-31.0) 07/22/17 11:45 Anion Gap 10.1 (7.0-16.0) 07/22/17 11:45 BUN 7 mg/dL (7-25) 07/22/17 11:45 Creatinine 0.6 mg/dL (0.7-1.3) L 07/22/17 11:45 Est GFR ( Amer) > 60.0 ml/min (>90) 07/22/17 11:45 Est GFR (Non-Af Amer) > 60.0 ml/min 07/22/17 11:45 BUN/Creatinine Ratio 11.7 07/22/17 11:45 Glucose 93 mg/dL (70-105) 07/22/17 11:45 Whole Bld Lactic Acid 1.20 mmol/L (0.60-1.99) 07/16/17 16:00 Calcium 8.7 mg/dL (8.6-10.3) 07/22/17 11:45 Total Bilirubin 0.2 mg/dL (0.3-1.0) L 07/16/17 16:00 AST 16 U/L (13-39) 07/16/17 16:00 ALT 12 U/L (7-52) 07/16/17 16:00 Alkaline Phosphatase 52 U/L (34-104) 07/16/17 16:00 Creatine Kinase 51 U/L (30-223) 07/16/17 16:00 Troponin I 0.01 ng/mL (0.01-0.05) 07/16/17 16:00 Total Protein 6.7 gm/dL (6.0-8.3) 07/16/17 16:00 Albumin 3.7 gm/dL (4.2-5.5) L 07/16/17 16:00 Globulin 3.0 gm/dL 07/16/17 16:00 Albumin/Globulin Ratio 1.2 (1.0-1.8) 07/16/17 16:00 Prealbumin 25 07/17/17 05:25 Triglycerides 88 mg/dL (<150) 07/17/17 05:25 Cholesterol 157 mg/dL (<200) 07/17/17 05:25 LDL Cholesterol Direct 94 mg/dL (75-193) 07/17/17 05:25 HDL Cholesterol 47 mg/dL (23-92) 07/17/17 05:25 TSH 1.75 uIU/ml (0.34-5.60) 07/17/17 05:25 Urine Source MIDSTREAM 07/16/17 19:00 Urine Color YELLOW 07/16/17 19:00 Urine Clarity CLEAR (CLEAR) 07/16/17 19:00 Urine pH 7.0 (4.6 - 8.0) 07/16/17 19:00 Ur Specific [place] 1.020 (1.005-1.030) 07/16/17 19:00 Urine Protein NEGATIVE mg/dL (NEGATIVE) 07/16/17 19:00 Urine Glucose (UA) NEGATIVE mg/dL (NEGATIVE) 07/16/17 19:00 Urine Ketones NEGATIVE mg/dL (NEGATIVE) 07/16/17 19:00 Urine Blood NEGATIVE (NEGATIVE) 07/16/17 19:00 Urine Nitrate NEGATIVE (NEGATIVE) 07/16/17 19:00 Urine Bilirubin NEGATIVE (NEGATIVE) 07/16/17 19:00 Urine Urobilinogen 0.2 E.U./dL (0.2 - 1.0) 07/16/17 19:00 Ur Leukocyte Esterase NEGATIVE (NEGATIVE) 07/16/17 19:00 Urine RBC 0-2 /hpf (0-5) H 07/16/17 19:00 Urine WBC NONE SEEN /hpf (0-5) 07/16/17 19:00 Ur Epithelial Cells NONE SEEN /lpf (FEW) 07/16/17 19:00 Urine Bacteria NONE SEEN /hpf (NONE SEEN) 07/16/17 19:00 HIV 1&2 Antibody Screen NEGATIVE (NEG) 07/20/17 13:57 - Physical Exam Vitals and I&O: Vital Signs Temp 98.5 F 07/23/17 07:58 Pulse 69 07/23/17 07:58 Resp 18 07/23/17 07:58 BP 118/71 07/23/17 07:58 Pulse Ox 98 07/23/17 07:58 Intake & Output 07/22/17 07/23/17 07/23/17 18:59 06:59 18:59 Intake Total 868.75 1150 Balance 868.75 1150 Weight (lbs) 73.482 kg Intake: Intake, IV Amount 868.75 1000 D5-0.45NS 1,000 ml @ 75 868.75 1000 mls/hr IV .[id number] [facility] Rx #:[id number] Oral 150 Other: # Voids 2 # Bowel Movements 0 Weight Source Bedscale Active Medications: Current Medications Acetaminophen (Tylenol) 650 mg PO Q4HR PRN PRN Reason: Pain or Fever >101 Stop: 09/14/17 21:34 Last Admin: 07/23/17 06:31 Dose: 650 mg Al Hydrox/Mg Hydrox/Simethicone (Maalox) 30 ml PO Q6HR PRN PRN Reason: Heartburn Stop: 09/14/17 21:34 Last Admin: 07/23/17 06:31 Dose: 30 ml Bisacodyl (Dulcolax 10 Mg Supp) 10 mg RC DAILY PRN PRN Reason: Constipation Stop: 09/14/17 21:34 Last Admin: 07/18/17 05:15 Dose: 10 mg Carbamazepine (Tegretol) 200 mg PO BID JUANITA PRN Reason: Protocol Stop: 09/15/17 08:59 Last Admin: 07/22/17 16:12 Dose: 200 mg Divalproex Sodium (Depakote Er) 750 mg PO BID JUANITA PRN Reason: Protocol Stop: 09/15/17 08:59 Last Admin: 07/22/17 16:11 Dose: 750 mg Docusate Sodium (Colace) 250 mg PO DAILY [facility] Stop: 09/15/17 08:59 Last Admin: 07/22/17 14:57 Dose: 250 mg Fish Oil ([place] 3) 1,000 mg PO DAILY JUANITA Stop: 09/15/17 08:59 Last Admin: 07/22/17 14:58 Dose: 1,000 mg Haloperidol (Haldol) 2.5 mg PO BID JUANITA PRN Reason: Protocol Stop: 09/15/17 08:59 Last Admin: 07/22/17 16:12 Dose: 2.5 mg Hydrocortisone (Hydrocortisone 1%) 1 appl TP BID [facility] Stop: 09/18/17 16:59 Last Admin: 07/22/17 16:16 Dose: 1 appl Dextrose/Sodium Chloride (D5-0.45ns) 1,000 mls @ 75 mls/hr IV .[id number] JUANITA Stop: 09/14/17 21:29 Last Admin: 07/23/17 06:31 Dose: 75 mls/hr Levofloxacin (Levaquin) 500 mg PO DAILY JUANITA Stop: 09/20/17 08:59 Last Admin: 07/22/17 14:58 Dose: 500 mg Loratadine (Claritin) 10 mg PO DAILY [facility] Stop: 09/15/17 08:59 Last Admin: 07/22/17 14:58 Dose: 10 mg Magnesium Hydroxide (Milk Of Magnesia) 30 ml PO HS PRN PRN Reason: Constipation Stop: 09/14/17 21:34 Last Admin: 07/17/17 22:39 Dose: 30 ml Olanzapine (Zyprexa) 10 mg PO TID JUANITA PRN Reason: Protocol Stop: 09/15/17 08:59 Last Admin: 07/22/17 22:33 Dose: 10 mg Pantoprazole Sodium (Protonix) 40 mg PO DAILY JUANITA Stop: 09/15/17 09:59 Last Admin: 07/22/17 14:58 Dose: 40 mg Psyllium Hydrophilic Mucilloid (Metamucil) 1 pkt PO BID JUANITA Stop: 09/15/17 08:59 Last Admin: 07/22/17 16:12 Dose: 1 pkt Sodium Phosphate (Fleet Enema) 135 ml RC Q48H PRN PRN Reason: Constipation Stop: 09/14/17 21:34 General: no acute distress, well developed, well nourished HEENT: atraumatic, normocephalic, EOMI, moist mucous membrane Neck: supple, no thyromegaly, no lymphadenopathy Cardiovascular: S1S2, regular, systolic murmur Lungs: clear to auscultation bilaterally, clear to percussion Abdomen: soft, no tender, no distended Extremities: no cyanosis, no clubbing, no edema Neurological: awake, alert, oriented Skin: intact Infectious Disease Assmt/Plan - Assessment Assessment: 1. Dehydration 2. acute renal failure 3. epigastric pain improved 4. his hypertension. 5 hyperlipidemia. 6 depression. 7. Dementia. 8. Status post pneumonia. 9. Face rash, likely seborrheic dermatitis 10. Pyelonephritis. - Plan Plan: Continue same management. Hydrocortisone cream, apply to the face. Colonoscopy in AM. Continue levaquin for 5 more days. dc patient to SNF. Nutritional Asmnt/Malnutr-PDOC - Dietary Evaluation Malnutrition Findings (Please click <Entered> for more info): Nutritional Asmnt/Malnutrition Start: 07/17/17 15: 32 Text: Status: Complete Freq: Document 07/17/17 15:32 [email or web address] (Rec: 07/17/17 16:22 LONNIE [email or web address]) Nutritional Asmnt/Malnutrition Patient General Information Nutritional Screening High Risk Consult Diagnosis dehydration, FTT Pertinent Medical Hx/Surgical Hx dementia, depression, seizure, HTN, hyperlipidemia Subjective Information Per H&P pt had poor oral intake x 3 days before admission. Pt seen lying in bed at time of visit, awake. Pt reported good appetite, all the food is fine. Pt was on regular diet, now on NPO for KUB. Per IKE Momin, pt ate breakfast well this morning. Poor oral intake before admission may d/t constipation . Current Diet Order/ Nutrition Support NPO Pertinent Medications D5-0.45ns, colace, fish oil, protonix Pertinent Labs 07/17 nutrition labs WNL Nutritional Hx/Data Height 1.73 m Height (Calculated Centimeters) 172.7 Current Weight (lbs) 76.204 kg Weight (Calculated Kilograms) 76.2 Weight (Calculated Grams) 88549.5 [place] Body Weight 154 Body Mass Index (BMI) 25.5 Weight Status Overweight GI Symptoms GI Symptoms None Last BM 0 Difficult in: None Skin Integrity/Comment: abrasion to right leg, left finger and left foot rash to neck and face Estimated Nutritional Goals Calories/Kcals/Kg 25-30 based on IBW 70kg Kcals Calculated 5219-7256 Protein g/k Protein Calculated 70 Fluid: ml 1750-2100ml (1ml/kcal) Nutritional Problem No current Nutrition Prob Problem N/A Malnutrition Alert Protein-Calorie Malnutrition N/A Is there a minimum of two criteria No selected? Query Text:Check all the applicable criteria. A minimum of two criteria are recommended for diagnosis of either severe or non-severe malnutrition. Intervention/Recommendation Comments 1. Continue with regular diet if diet resumed. Nurse to encourage oral intake. 2. Monitor PO intake, wt, labs and skin integrity 3. F/U as high risk in 2-3 days, 07/19-07/20 Expected Outcomes/Goals Expected Outcomes/Goals 1. PO intake to meet at least 75% of nutritional needs. 2. Wt stability, skin to remain intact, labs to approach WNL.
[2017-07-23] MEDS: Pantoprazole 40 mg EC Tab PO SCH (08:57)
[2017-07-23] MEDS: Multivitamin w/ Minerals Tab PO SCH (08:57)
[2017-07-23] MEDS: Fish Oil 1,000 MG SGL PO SCH (08:57)
[2017-07-23 09:58] LABS: ANION GAP 11.5 (7.0-16.0); BUN - UREA NITROGEN 5 mg/dL (7-25); CALCIUM SERUM 8.7 mg/dL (8.6-10.3); CARBON DIOXIDE 23.2 mEq/L (21.0-31.0); CHLORIDE 94 mEq/L (98-107); CREATININE - SERUM 0.6 mg/dL (0.7-1.3); GFR AFRICAN-AMERICAN > 60.0 ml/min (>90); GFR NON AFRICAN-AMERICAN > 60.0 ml/min; GLUCOSE 117 mg/dL (70-105); POTASSIUM SERUM 3.7 mEq/L (3.5-5.1); SODIUM SERUM 125 mEq/L (136-145)
[2017-07-23] MEDS: Sodium Chloride 0.9% 1,000 ML IV SCH (13:16)
--- NOTE | 2017-07-23 14:39 | Pathology Report ---
[id number] Collection date: 07/22/2017 Surgeon: Dr. Nixon Gregg Specimen Description: 1. Duodenum biopsy 2. Antrum biopsy Gross Description: Part I: Received in formalin are two vivas soft tissue fragments ranging from 0.1 to 0.2 cm in greatest dimension. Totally submitted in one cassette labeled A. Gross Description: Part II: Received in formalin are two vivas soft tissue fragments ranging from 0.1 to 0.2 cm in greatest dimension. Totally submitted in one cassette labeled B. Microscopic Description: Part I: The histologic sections show duodenal mucosa with intact intestinal villi, showing no evidence for villous abnormality. Diagnosis: Part I: No evidence for celiac disease/sprue, duodenal biopsy. Microscopic Description: Part II: The histologic sections show gastric mucosa with mild chronic inflammation present consisting of lymphocytes and plasma cells. The Giemsa stain shows no evidence for Helicobacter pylori. Diagnosis: Part II: 1. Mild chronic gastritis, antrum biopsy. 2. The Giemsa stain is negative for Helicobacter pylori. [facility]# [id number] [facility]
[2017-07-23] MEDS: Magnesium Hydroxide (MOM) 30 mL UDC PO PRN (17:14)
[2017-07-24] MEDS: Sodium Chloride 0.9% 1,000 ML IV SCH (02:20)
--- NOTE | 2017-07-24 08:52 | Infectious Disease Prog Note ---
Infectious Disease Subjective - Review of Systems Service Date: 07/24/17 Subjective: The patient has a facial rash improving.. Infectious Disease Objective - Results Result Diagrams: 07/22/17 11:45 07/23/17 09:30 Recent Labs: Laboratory Last Values WBC 7.7 Th/cmm (4.8-10.8) 07/22/17 11:45 RBC 4.18 Mil/cmm (4.30-5.70) L 07/22/17 11:45 Hgb 13.6 gm/dL (12-16) 07/22/17 11:45 Hct 40.6 % (41.0-60) L 07/22/17 11:45 MCV 97.2 fl (80-99) 07/22/17 11:45 MCH 32.6 pg (26.0-30.0) H 07/22/17 11:45 MCHC Differential 33.6 pg (28.0-36.0) 07/22/17 11:45 RDW 13.1 % (11.5-20.0) 07/22/17 11:45 Plt Count 239 Th/cmm (150-400) 07/22/17 11:45 MPV 7.8 fl 07/22/17 11:45 Neutrophils % 55.5 % (40.0-80.0) 07/22/17 11:45 Lymphocytes % 30.1 % (20.0-50.0) 07/22/17 11:45 Monocytes % 7.0 % (2.0-10.0) 07/22/17 11:45 Eosinophils % 7.0 % (0.0-5.0) H 07/22/17 11:45 Basophils % 0.4 % (0.0-2.0) 07/22/17 11:45 PT 11.3 SECONDS (9.5-11.5) 07/22/17 11:45 INR 1.09 (0.5-1.4) 07/22/17 11:45 PTT (Actin FS) 28.3 SECONDS (26.0-38.0) 07/17/17 05:25 Sodium 125 mEq/L (136-145) L 07/23/17 09:30 Potassium 3.7 mEq/L (3.5-5.1) 07/23/17 09:30 Chloride 94 mEq/L (98-107) L 07/23/17 09:30 Carbon Dioxide 23.2 mEq/L (21.0-31.0) 07/23/17 09:30 Anion Gap 11.5 (7.0-16.0) 07/23/17 09:30 BUN 5 mg/dL (7-25) L 07/23/17 09:30 Creatinine 0.6 mg/dL (0.7-1.3) L 07/23/17 09:30 Est GFR ( Amer) > 60.0 ml/min (>90) 07/23/17 09:30 Est GFR (Non-Af Amer) > 60.0 ml/min 07/23/17 09:30 BUN/Creatinine Ratio 8.3 07/23/17 09:30 Glucose 117 mg/dL (70-105) H 07/23/17 09:30 Whole Bld Lactic Acid 1.20 mmol/L (0.60-1.99) 07/16/17 16:00 Calcium 8.7 mg/dL (8.6-10.3) 07/23/17 09:30 Total Bilirubin 0.2 mg/dL (0.3-1.0) L 07/16/17 16:00 AST 16 U/L (13-39) 07/16/17 16:00 ALT 12 U/L (7-52) 07/16/17 16:00 Alkaline Phosphatase 52 U/L (34-104) 07/16/17 16:00 Creatine Kinase 51 U/L (30-223) 07/16/17 16:00 Troponin I 0.01 ng/mL (0.01-0.05) 07/16/17 16:00 Total Protein 6.7 gm/dL (6.0-8.3) 07/16/17 16:00 Albumin 3.7 gm/dL (4.2-5.5) L 07/16/17 16:00 Globulin 3.0 gm/dL 07/16/17 16:00 Albumin/Globulin Ratio 1.2 (1.0-1.8) 07/16/17 16:00 Prealbumin 25 mg/dL (10-36) 07/17/17 05:25 Triglycerides 88 mg/dL (<150) 07/17/17 05:25 Cholesterol 157 mg/dL (<200) 07/17/17 05:25 LDL Cholesterol Direct 94 mg/dL (75-193) 07/17/17 05:25 HDL Cholesterol 47 mg/dL (23-92) 07/17/17 05:25 TSH 1.75 uIU/ml (0.34-5.60) 07/17/17 05:25 Urine Source MIDSTREAM 07/16/17 19:00 Urine Color YELLOW 07/16/17 19:00 Urine Clarity CLEAR (CLEAR) 07/16/17 19:00 Urine pH 7.0 (4.6 - 8.0) 07/16/17 19:00 Ur Specific [place] 1.020 (1.005-1.030) 07/16/17 19:00 Urine Protein NEGATIVE mg/dL (NEGATIVE) 07/16/17 19:00 Urine Glucose (UA) NEGATIVE mg/dL (NEGATIVE) 07/16/17 19:00 Urine Ketones NEGATIVE mg/dL (NEGATIVE) 07/16/17 19:00 Urine Blood NEGATIVE (NEGATIVE) 07/16/17 19:00 Urine Nitrate NEGATIVE (NEGATIVE) 07/16/17 19:00 Urine Bilirubin NEGATIVE (NEGATIVE) 07/16/17 19:00 Urine Urobilinogen 0.2 E.U./dL (0.2 - 1.0) 07/16/17 19:00 Ur Leukocyte Esterase NEGATIVE (NEGATIVE) 07/16/17 19:00 Urine RBC 0-2 /hpf (0-5) H 07/16/17 19:00 Urine WBC NONE SEEN /hpf (0-5) 07/16/17 19:00 Ur Epithelial Cells NONE SEEN /lpf (FEW) 07/16/17 19:00 Urine Bacteria NONE SEEN /hpf (NONE SEEN) 07/16/17 19:00 Stool Leukocyte NO WBC SEEN 07/23/17 18:35 HIV 1&2 Antibody Screen NEGATIVE (NEG) 07/20/17 13:57 - Physical Exam Vitals and I&O: Vital Signs Temp 96.7 F 07/24/17 07:49 Pulse 64 07/24/17 07:49 Resp 18 07/24/17 07:49 BP 124/70 07/24/17 07:49 Pulse Ox 98 07/24/17 07:49 Intake & Output 07/23/17 07/24/17 07/24/17 18:59 06:59 18:59 Intake Total 500 Balance 500 Weight (lbs) 74.525 kg Intake: Oral 500 Other: # Voids 4 # Bowel Movements 1 Stool Characteristics Formed Weight Source Bedscale Active Medications: Current Medications Acetaminophen (Tylenol) 650 mg PO Q4HR PRN PRN Reason: Pain or Fever >101 Stop: 09/14/17 21:34 Last Admin: 07/23/17 17:13 Dose: 650 mg Al Hydrox/Mg Hydrox/Simethicone (Maalox) 30 ml PO Q6HR PRN PRN Reason: Heartburn Stop: 09/14/17 21:34 Last Admin: 07/23/17 06:31 Dose: 30 ml Bisacodyl (Dulcolax 10 Mg Supp) 10 mg RC DAILY PRN PRN Reason: Constipation Stop: 09/14/17 21:34 Last Admin: 07/18/17 05:15 Dose: 10 mg Carbamazepine (Tegretol) 200 mg PO BID JUANITA PRN Reason: Protocol Stop: 09/15/17 08:59 Last Admin: 07/23/17 16:25 Dose: 200 mg Divalproex Sodium (Depakote Er) 750 mg PO BID JUANITA PRN Reason: Protocol Stop: 09/15/17 08:59 Last Admin: 07/23/17 16:26 Dose: 750 mg Docusate Sodium (Colace) 250 mg PO DAILY JUANITA Stop: 09/15/17 08:59 Last Admin: 07/23/17 08:57 Dose: 250 mg Fish Oil ([place] 3) 1,000 mg PO DAILY JUANITA Stop: 09/15/17 08:59 Last Admin: 07/23/17 08:57 Dose: 1,000 mg Haloperidol (Haldol) 2.5 mg PO BID JUANITA PRN Reason: Protocol Stop: 09/15/17 08:59 Last Admin: 07/23/17 16:25 Dose: 2.5 mg Hydrocortisone (Hydrocortisone 1%) 1 appl TP BID JUANITA Stop: 09/18/17 16:59 Last Admin: 07/23/17 16:32 Dose: 1 appl Sodium Chloride (Nacl 0.9%) 1,000 mls @ 75 mls/hr IV .[id number] JUANITA Stop: 09/21/17 12:59 Last Admin: 07/23/17 13:16 Dose: 75 mls/hr Levofloxacin (Levaquin) 500 mg PO DAILY JUANITA Stop: 09/20/17 08:59 Last Admin: 07/23/17 08:57 Dose: 500 mg Loratadine (Claritin) 10 mg PO DAILY [facility] Stop: 09/15/17 08:59 Last Admin: 07/23/17 08:57 Dose: 10 mg Magnesium Hydroxide (Milk Of Magnesia) 30 ml PO HS PRN PRN Reason: Constipation Stop: 09/14/17 21:34 Last Admin: 07/23/17 17:14 Dose: 30 ml Olanzapine (Zyprexa) 10 mg PO TID JUANITA PRN Reason: Protocol Stop: 09/15/17 08:59 Last Admin: 07/23/17 22:49 Dose: 10 mg Pantoprazole Sodium (Protonix) 40 mg PO DAILY [facility] Stop: 09/15/17 09:59 Last Admin: 07/23/17 08:57 Dose: 40 mg Psyllium Hydrophilic Mucilloid (Metamucil) 1 pkt PO BID [facility] Stop: 09/15/17 08:59 Last Admin: 07/23/17 16:26 Dose: 1 pkt Sodium Chloride (Nacl Tab) 1 gm PO BID [facility] Stop: 09/21/17 16:59 Last Admin: 07/23/17 16:25 Dose: 1 gm Sodium Phosphate (Fleet Enema) 135 ml RC Q48H PRN PRN Reason: Constipation Stop: 09/14/17 21:34 Last Admin: 07/23/17 17:14 Dose: 135 ml General: no acute distress, well developed, well nourished HEENT: atraumatic, normocephalic Neck: supple, no thyromegaly Cardiovascular: S1S2, regular Lungs: clear to auscultation bilaterally, clear to percussion Abdomen: soft, no tender, no distended, no bowel sounds Extremities: no cyanosis, no clubbing, no edema Neurological: awake, alert, oriented Skin: intact - Procedures Procedures: Procedures Procedure Code Date EGD BIOPSY SINGLE/MULTIPLE 80379 07/16/17 EXCISION OF STOMACH, ENDO, DIAGN [id number] 07/16/17 Infectious Disease Assmt/Plan - Assessment Assessment: 1. Dehydration 2. Acute renal failure 3. epigastric pain improved 4. Essential hypertension. 5. Hyperlipidemia. 6. Depression. 7. Dementia. 8. Status post pneumonia. 9. Face rash, likely seborrheic dermatitis 10. Pyelonephritis. 11. Hyponatremia. - Plan Plan: Continue same management. Hydrocortisone cream, apply to the face. If sodium is normal, will dc to SNF. Continue levaquin for 4 more days. dc patient to SNF. Nutritional Asmnt/Malnutr-PDOC - Dietary Evaluation Malnutrition Findings (Please click <Entered> for more info): Nutritional Asmnt/Malnutrition Start: 07/17/17 15: 32 Text: Status: Complete Freq: Document 07/17/17 15:32 [facility] (Rec: 07/17/17 16:22 [email or web address] Nutritional Asmnt/Malnutrition Patient General Information Nutritional Screening High Risk Consult Diagnosis dehydration, FTT Pertinent Medical Hx/Surgical Hx dementia, depression, seizure, HTN, hyperlipidemia Subjective Information Per H&P pt had poor oral intake x 3 days before admission. Pt seen lying in bed at time of visit, awake. Pt reported good appetite, all the food is fine. Pt was on regular diet, now on NPO for KUB. Per IKE Momin, pt ate breakfast well this morning. Poor oral intake before admission may d/t constipation . Current Diet Order/ Nutrition Support NPO Pertinent Medications D5-0.45ns, colace, fish oil, protonix Pertinent Labs 07/17 nutrition labs WNL Nutritional Hx/Data Height 1.73 m Height (Calculated Centimeters) 172.7 Current Weight (lbs) 76.204 kg Weight (Calculated Kilograms) 76.2 Weight (Calculated Grams) 19705.5 [place] Body Weight 154 Body Mass Index (BMI) 25.5 Weight Status Overweight GI Symptoms GI Symptoms None Last BM 0 Difficult in: None Skin Integrity/Comment: abrasion to right leg, left finger and left foot rash to neck and face Estimated Nutritional Goals Calories/Kcals/Kg 25-30 based on IBW 70kg Kcals Calculated 6038-8581 Protein g/k Protein Calculated 70 Fluid: ml 1750-2100ml (1ml/kcal) Nutritional Problem No current Nutrition Prob Problem N/A Malnutrition Alert Protein-Calorie Malnutrition N/A Is there a minimum of two criteria No selected? Query Text:Check all the applicable criteria. A minimum of two criteria are recommended for diagnosis of either severe or non-severe malnutrition. Intervention/Recommendation Comments 1. Continue with regular diet if diet resumed. Nurse to encourage oral intake. 2. Monitor PO intake, wt, labs and skin integrity 3. F/U as high risk in 2-3 days, 07/19-07/20 Expected Outcomes/Goals Expected Outcomes/Goals 1. PO intake to meet at least 75% of nutritional needs. 2. Wt stability, skin to remain intact, labs to approach WNL.
[2017-07-24] MEDS: Fish Oil 1,000 MG SGL PO SCH (09:08)
[2017-07-24] MEDS: Multivitamin w/ Minerals Tab PO SCH (09:09)
[2017-07-24] MEDS: Pantoprazole 40 mg EC Tab PO SCH (09:10)
[2017-07-24 09:22] LABS: BUN - UREA NITROGEN 8 mg/dL (7-25); CALCIUM SERUM 8.6 mg/dL (8.6-10.3); CHLORIDE 97 mEq/L (98-107); CREATININE - SERUM 0.6 mg/dL (0.7-1.3); GFR AFRICAN-AMERICAN > 60.0 ml/min (>90); GFR NON AFRICAN-AMERICAN > 60.0 ml/min; GLUCOSE 154 mg/dL (70-105); SODIUM SERUM 127 mEq/L (136-145)
== END 2017-07-24 12:48 | DRG 683 ==
LOC: ER 15:34 → MSI 18:45
PROVIDERS: ADMIT Internal Medicine; ATTEND Internal Medicine
PROC: 0DB68ZX Excision of Stomach, Via Natural or Artificial Opening Endoscopic, Diagnostic (ICD-10-PCS; principal; 2017-07-22)
PROC: 0DB98ZX Excision of Duodenum, Via Natural or Artificial Opening Endoscopic, Diagnostic (ICD-10-PCS; 2017-07-22)
DX: N17.9 Acute kidney failure, unspecified (principal); E87.1 Hypo-osmolality and hyponatremia; K29.70 Gastritis, unspecified, without bleeding; N12 Tubulo-interstitial nephritis, not specified as acute or chronic; R62.7 Adult failure to thrive; E86.0 Dehydration; K59.00 Constipation, unspecified; I10 Essential (primary) hypertension; F03.90 Unspecified dementia, unspecified severity, without behavioral disturbance, psychotic disturbance, mood disturbance, and anxiety; F79 Unspecified intellectual disabilities; F32.9 Major depressive disorder, single episode, unspecified; E78.5 Hyperlipidemia, unspecified; G40.909 Epilepsy, unspecified, not intractable, without status epilepticus; Z53.20 Procedure and treatment not carried out because of patient's decision for unspecified reasons; L21.9 Seborrheic dermatitis, unspecified; K44.9 Diaphragmatic hernia without obstruction or gangrene; Z82.49 Family history of ischemic heart disease and other diseases of the circulatory system; Z79.899 Other long term (current) drug therapy; Z87.01 Personal history of pneumonia (recurrent)
CPT/HCPCS: 36415-UA; 71045-TC; 74000-TC; 76700-TC; 80048-TC; 80053-TC; 80061-TC; 81001-TC; 82550-TC; 83605; 84134-90; 84443-TC; 84484-TC; 85025-TC; 85610-TC; 85730-TC; 86703-TC; 87046-90; 87230-TC; 89055-TC; 93005; J2704; J7030; Q9967; Z7610

== ENCOUNTER 2017-12-30 11:52 | Inpatient (IN) | payer MEDICARE, OTHER, MEDICAID ==
--- NOTE | 2017-12-30 12:08 | ED Physician Chart ---
ED Chief Complaint/HPI - Patient Information Date Seen:: 12/30/17 Time Seen:: 11:55 Chief Complaint:: Fever History of Present Illness:: onset x 3 days of fever, cough, congestion, and weakness; no report of trauma, H /As, S/T, neck pain, C/P, SOB, Abd. Pain, A/N/V/D/C, chills, or urinary s/s Allergies:: Allergies Allergy/AdvReac Type Severity Reaction Status Date / Time No Known Allergies Allergy Verified 07/16/17 15:44 Historian:: Patient, EMS Review:: Nurse's Note Reviewed, Old Chart Reviewed, EMS run form Reviewed ED Review of Systems - Review of Systems General/Constitutional: Fever, No chills, No weight loss, Weakness, No diaphoresis, No edema, No loss of appetite Skin: No skin lesions, No rash, No bruising Head: No headache, No light-headedness Eyes: No loss of vision, No pain, No diplopia ENT: No earache, Nasal drainage, No sore throat, No tinnitus Neck: No neck pain, No swelling, No thyromegaly, No stiffness, No mass noted Cardio Vascular: No chest pain, No palpitations, No PND, No orthopnea, No edema Pulmonary: No SOB, Cough, No sputum, No wheezing GI: No nausea, No vomiting, No diarrhea, No pain, No melena, No hematochezia, No constipation, No hematemesis G/U: No dysuria, No frequency, No hematuria, No nacturia Musculoskeletal: No bone or joint pain, No back pain, No muscle pain Endocrine: No polyuria, No polydipsia Psychiatric: Prior psych history, Depression, Anxiety, No suicidal ideation, No homicidal ideation, Auditory hallucination, No visual hallucination Hematopoietic: No bruising, No lymphadenopathy Allergic/Immuno: No urticaria, No angioedema Neurological: No syncope, No focal symptoms, Weakness, No paresthesia, No headache, No seizure, No dizziness, Confusion, No vertigo ED Past Medical History - Past Medical History Obtainable: Yes Past Medical History: HTN, Seizures, Dementia Family History: HTN Social History: Non Smoker, No Alcohol, No Drug Use, Single, Care Facility Surgical History: None Psychiatricy History: Depression, Schizophrenia, Dementia Medication: Reviewed Family Medical History - Family Member Mother History Unknown: Yes ED Physical Exam - Physical Examination General/Constitutional: Awake, Well-developed, well-nourished, Alert, No distress, GCS 15, Non-toxic appearing, Ambulatory Head: Atraumatic Eyes: Lids, conjuctiva normal, PERRL, EOMI Skin: Nl inspection, No rash, No skin lesions, No ecchymosis, Well hydrated, No lymphadenopathy ENMT: External ears, nose nl, TM canals nl, Nasal exam nl, Lips, teeth, gums nl , Oropharynx nl, Tonsils nl Neck: Nontender, Full ROM w/o pain, No JVD, No nuchal rigidity, No bruit, No mass, No stridor Respiratory: Nl effort/Exclusion Other Respiratory comments:: Lungs: + Rales and Rhonchi Cardio Vascular: RRR, No murmur, gallop, rubs, NL S1 S2, Carotid/Femoral/Distal pulses equal bilaterally GI: No tenderness/rebounding/guarding, No organomegaly, No hernia, Normal BS's, Nondistended, No mass/bruits, No McBurney tenderness : No CVA tenderness Extremities: No tenderness or effusion, Full ROM, normal strength in all extremities, No edema, Normal digits & nails Neuro/Psych: Alert/oriented, DTR's symmetric, Normal sensory exam, Normal motor strength, Judgement/insight normal, Mood normal, Normal gait, No focal deficits Misc: Normal back, No paraspinal tenderness ED Labs/Radiology/EKG Results - Lab Results Comments:: Reviewed - Radiology Results Comments:: NAD - EKG Interpretations EKG Time:: 12:27 Rate & Rhythm: 72; NSR Comments:: non-specific st-t changes ED Septic Shock - . Is Septic Shock (SBP<90, OR Lactate>4 mmol\L) present?: No ED Reassessment (Disposition) - Reassessment Reassessment Condition:: Improved - Diagnosis Diagnosis:: Fever; Weakness; Cough; Congestion; PNA; Sepsis - Aftercare/Follow up Instructions Aftercare/Follow-Up Instructions:: Counseled pt regarding lab results/diagnosis & need follow up, Counseled pt & family regarding lab results/diagnosis & need follow up - Patient Disposition Discharge/Transfer:: Acute Care w/in this hosp Accepting Physician:: Dr. Bourne Time Called:: 1345 Time Responded:: 13:45 Admitted to:: Med/Surg Spoke to:: Dr. Bourne Admitting Medical Physician:: Dr. Bourne Condition at Disposition:: Stable, Improved
--- NOTE | 2017-12-30 12:27 | Diagnostic Imaging Report ---
Portable chest x-ray History: Pain Allowing for portable technique the heart size is normal. No focal pulmonary parenchymal processes. No hilar or mediastinal abnormalities. Impression: No acute abnormalities.
[2017-12-30] MEDS ORDERED: Levofloxacin 500mg/100mL 500 MG/100 ML BAG IV ONE ×2 (13:03→14:02)
[2017-12-30 13:05] LABS: URINE SOURCE MIDSTREAM
[2017-12-30 13:08] LABS: % BASOPHILS 0.2 % (0.0-2.0); % EOSINOPHILS 5.5 % (0.0-5.0); % LYMPHOCYTES 23.7 % (20.0-50.0); % MONOCYTES 7.9 % (2.0-10.0); % NEUTROPHILS 62.7 % (40.0-80.0); EOSINOPHILE ABSOLUTE 0.5 Th/cmm (0.1-0.4); HEMATOCRIT 43.9 % (41.0-60); HEMOGLOBIN 14.5 gm/dL (12-16); LYMPHOCYTE ABSOLUTE 2.2 Th/cmm (1.5-3.0); MEAN CELL VOLUME 97.4 fl (80-99); MEAN CORPUSCULAR HEMOGLOBIN 32.2 pg (26.0-30.0); MEAN PLATELET VOLUME 8.8 fl; MONOCYTE ABSOLUTE 0.7 Th/cmm (0.3-1.0); NEUTROPHILE ABSOLUTE 5.7 Th/cmm (1.8-8.0); PLATELET COUNT 281 Th/cmm (150-400); RED BLOOD COUNT 4.51 Mil/cmm (4.30-5.70); RED CELL DISTRIBUTION WIDTH 13.1 % (11.5-20.0); WHITE BLOOD COUNT 9.1 Th/cmm (4.8-10.8)
[2017-12-30 13:17] LABS: PROTHROMBIN TIME (TEST) 10.4 SECONDS (9.5-11.5)
[2017-12-30 13:20] LABS: ALB/GLOB RATIO 1.1 (1.0-1.8); ALBUMIN 3.9 gm/dL (4.2-5.5); ANION GAP 12.7 (7.0-16.0); BILIRUBIN,TOTAL 0.2 mg/dL (0.3-1.0); BUN - UREA NITROGEN 20 mg/dL (7-25); CALCIUM SERUM 9.3 mg/dL (8.6-10.3); CHLORIDE 105 mEq/L (98-107); CREATININE - SERUM 0.7 mg/dL (0.7-1.3); GFR AFRICAN-AMERICAN > 60.0 ml/min (>90); GFR NON AFRICAN-AMERICAN > 60.0 ml/min; GLUCOSE 88 mg/dL (70-105); POTASSIUM SERUM 3.7 mEq/L (3.5-5.1); SGOT 16 U/L (13-39); SGPT/ALT 12 U/L (7-52); SODIUM SERUM 139 mEq/L (136-145); TOTAL PROTEIN,SERUM 7.4 gm/dL (6.0-8.3)
[2017-12-30 13:21] LABS: ALKALINE PHOSPHATASE 47 U/L (34-104); CREATININE KINASE 50 U/L (30-223)
[2017-12-30 13:22] LABS: TROP I 0.01 ng/mL (0.01-0.05)
[2017-12-30 15:26] LABS: URINE BILIRUBIN NEGATIVE (NEGATIVE); URINE BLOOD NEGATIVE (NEGATIVE); URINE CLARITY CLEAR (CLEAR); URINE COLOR YELLOW; URINE GLUCOSE (UA) NEGATIVE (NEGATIVE); URINE KETONE NEGATIVE (NEGATIVE); URINE LEUKOCYTE ESTERASE NEGATIVE (NEGATIVE); URINE MICROSCOPIC INDICATED? YES; URINE NITRATE NEGATIVE (NEGATIVE); URINE PH 6.5 (4.6 - 8.0); URINE PROTEIN NEGATIVE (NEGATIVE); URINE UROBILINOGEN 0.2 E.U./dL (0.2 - 1.0)
[2017-12-30 15:29] LABS: URINE EPITHELIAL CELLS FEW /lpf (FEW); URINE RBC 0-2 /hpf (0-5)
[2017-12-30 15:30] LABS: URINE BACTERIA FEW /hpf (NONE SEEN)
[2017-12-30] MEDS ORDERED: Magnesium Hydroxide (MOM) 30 mL UDC PO PRN (16:41)
[2017-12-30] MEDS: D5-0.45NS 1,000 ML IV SCH (18:27)
[2017-12-30] MEDS: Acetaminophen 500 MG TAB PO PRN (21:02)
[2017-12-31 06:54] LABS: HEMATOCRIT 39.2 % (41.0-60); HEMOGLOBIN 13.1 gm/dL (12-16); MEAN CORPUSCULAR HEMOGLOBIN 32.7 pg (26.0-30.0); MEAN CORPUSCULAR HGB CONC 33.4 pg (28.0-36.0); MEAN PLATELET VOLUME 8.6 fl; PLATELET COUNT 261 Th/cmm (150-400); WHITE BLOOD COUNT 4.8 Th/cmm (4.8-10.8)
[2017-12-31 06:57] LABS: INR 1.14 (0.5-1.4); PROTHROMBIN TIME (TEST) 11.7 SECONDS (9.5-11.5)
[2017-12-31 07:16] LABS: ALB/GLOB RATIO 1.1 (1.0-1.8); ALBUMIN 3.3 gm/dL (4.2-5.5); ALKALINE PHOSPHATASE 38 U/L (34-104); ANION GAP 10.7 (7.0-16.0); BILIRUBIN,TOTAL 0.4 mg/dL (0.3-1.0); BUN - UREA NITROGEN 13 mg/dL (7-25); CALCIUM SERUM 8.6 mg/dL (8.6-10.3); CARBON DIOXIDE 26.9 mEq/L (21.0-31.0); CHLORIDE 107 mEq/L (98-107); CHOLESTEROL 135 mg/dL (<200); CREATININE - SERUM 0.8 mg/dL (0.7-1.3); GFR AFRICAN-AMERICAN > 60.0 ml/min (>90); GFR NON AFRICAN-AMERICAN > 60.0 ml/min; GLUCOSE 77 mg/dL (70-105); HDL -HIGH DENSITY LIPOPROTEIN 34 mg/dL (23-92); POTASSIUM SERUM 3.6 mEq/L (3.5-5.1); SGOT 12 U/L (13-39); SGPT/ALT 9 U/L (7-52); SODIUM SERUM 141 mEq/L (136-145); TOTAL PROTEIN,SERUM 6.4 gm/dL (6.0-8.3); TRIGLYCERIDES 84 mg/dL (<150)
[2017-12-31 07:26] LABS: DDIMER QUANT 681 ng/mL (100-400)
--- NOTE | 2017-12-31 07:30 | Consultation ---
DATE OF CONSULTATION: 12/31/2017 PSYCHIATRIC CONSULT PATIENT'S AGE: 57. SEX: Male. PHYSICIAN: Dr. Bourne. GAGE DESIGNER: Jonathan Oropeza MD, MPH REASON FOR THE CONSULT: Evaluation of his condition and also evaluating his mood. HISTORY OF PRESENT ILLNESS: The patient is a 57-year-old male who was admitted to the hospital because of fever for 3 days as well as cough and the congestion and generalized weakness. The patient also has been anxious and has been questionably depressed. Also, the patient has septic shock. The patient currently is sedated and he did not want to answer any of my questions and he continued to be sleepy. He is calm at this time showing no behavioral issues. Also, the patient has mood swings and the patient has been taking carbamazepine for possible bipolar disorder. PAST PSYCHIATRIC HISTORY: The patient has history of what seems to be bipolar disorder. PAST MEDICAL HISTORY: The patient admitted with fever. SOCIAL HISTORY: The patient lives with his mother. No known alcohol or drug use. MENTAL STATUS EXAM: The patient appears slightly older than his stated age. Sedated. In depressed, but did not answer questions at this time because of his sedation. Thought processes are mainly goal directed. The patient did not report any auditory or visual hallucinations or delusions upon admissions. No known suicide or homicide. Unable to assess the rest of the mental status at this time because of his sedation. ASSESSMENT: PRIMARY DIAGNOSES: Bipolar disorder, depressed episode. TREATMENT PLAN: We will monitor the patient's behavior and condition closely. We will start individual as well as milieu psychotherapy and we will reevaluate the patient when more awake. Thanks to Dr. Bourne and we will follow with you. ADDENDUM: We will get carbamazepine blood level. JOB# [id number]
[2017-12-31] MEDS ORDERED: Fleet Enema 135 mL RC PRN (08:23)
[2017-12-31] MEDS ORDERED: Acetaminophen 500 MG TAB PO PRN (08:23)
[2017-12-31] MEDS ORDERED: Magnesium Hydroxide (MOM) 30 mL UDC PO PRN (08:23)
[2017-12-31] MEDS ORDERED: Multivitamin w/ Minerals Tab PO SCH (09:00)
[2017-12-31] MEDS ORDERED: Non-Formulary Item 1 EA (Amino Acids/Protein Hydrolys [Pro-Stat Awc Liquid] 30 ML) PO SCH (09:00)
[2017-12-31] MEDS ORDERED: Pantoprazole 40 mg EC Tab PO SCH (09:00)
[2017-12-31] MEDS ORDERED: Fish Oil 1,000 MG SGL PO SCH (09:00)
[2017-12-31] MEDS: Fish Oil 1,000 MG SGL PO SCH (09:22)
[2017-12-31] MEDS: Calcium Carb/Vit D 500 mg/200 U Tab PO SCH (09:22)
[2017-12-31] MEDS: Multivitamin w/ Minerals Tab PO SCH (09:27)
[2017-12-31] MEDS: Pantoprazole 40 mg/Packet PO SCH (09:27)
[2017-12-31] MEDS: Albuterol/Ipratropium Neb 3 ML AERS HHN SCH ×2 (12:34→18:55)
[2017-12-31 14:00] LABS: EOSINOPHIL 9 % (0-5); LYMPHOCYTE 43 % (20-50); MONOCYTE 6 % (2-10); NEUTROPHILS 42 % (40-80)
--- NOTE | 2017-12-31 15:08 | Consultation ---
Consult Note - Consult Note Service Date: 12/31/17 Referring Physician: Jorge Bourne Consult Note: PHYSICIAN Consultation Note: Date of Admission: 12/30/17 Purpose of Consultation: Pneumonia sepsis. Chief Complaint: Patient FAMILIA NYE was admitted to location Medical[facility] Unit I with PNEUMONIA, SEPSIS. History of Present Illness: 57-year-old male with a past medical history of hypertension, seizure disorder, dementia, depression, schizophrenia, from nursing facility for fever, congestion and cough. On initial evaluation, his temperature was 98.2F and WBC count was 9100. ID consult was called as patient 's suspected to have pneumonia. Past Medical History: Allergies Allergy/AdvReac Type Severity Reaction Status Date / Time No Known Allergies Allergy Verified 07/16/17 15:44 Vital Signs Temp 98.1 F 12/31/17 12:00 Pulse 63 12/31/17 12:35 Resp 18 12/31/17 12:35 BP 104/65 12/31/17 12:00 Pulse Ox 94 12/31/17 12:35 Intake & Output 12/30/17 12/31/17 12/31/17 18:59 06:59 18:59 Intake Total 200 440 Output Total 250 Balance -50 440 Weight (lbs) 68.039 kg 73.936 kg Intake: Intake, IV Amount 100 100 Levofloxacin 500mg/100mL 100 500 mg In 100 ml @ 100 mls/hr IV X1 ONE Rx#: [id number] Piperacillin Sodium/ 100 Tazobact 3.375 gm In Sodium Chloride 0.9% 50 ml @ 100 mls/hr IV Q8HR JUANITA Rx#:[id number] Oral 100 340 Output: Urine 250 Other: # Voids 1 2 # Bowel Movements 0 0 Weight Source [facility] Laboratory Results - last 24 hr 12/30/17 12/30/17 12/30/17 12:15 12:15 12:15 WBC 9.1 RBC 4.51 Hgb 14.5 Hct 43.9 MCV 97.4 MCH 32.2 H MCHC Differential 33.0 RDW 13.1 Plt Count 281 MPV 8.8 Add Manual Diff Neutrophils % 62.7 Lymphocytes % 23.7 Monocytes % 7.9 Eosinophils % 5.5 H Basophils % 0.2 Neutrophils (Manual) Lymphocytes Monocytes Eosinophils PT 10.4 INR 1.00 PTT (Actin FS) 24.6 L D-Dimer Sodium Potassium Chloride Carbon Dioxide Anion Gap BUN Creatinine Est GFR ( Amer) Est GFR (Non-Af Amer) BUN/Creatinine Ratio Glucose Whole Bld Lactic Acid Calcium Total Bilirubin AST ALT Alkaline Phosphatase Creatine Kinase Troponin I Total Protein Albumin Globulin Albumin/Globulin Ratio Triglycerides Cholesterol LDL Cholesterol Direct HDL Cholesterol TSH Urine Source [place] Urine Color YELLOW Urine Clarity CLEAR Urine pH 6.5 Ur Specific [place] 1.025 Urine Protein NEGATIVE Urine Glucose (UA) NEGATIVE Urine Ketones NEGATIVE Urine Blood NEGATIVE Urine Nitrate NEGATIVE Urine Bilirubin NEGATIVE Urine Urobilinogen 0.2 Ur Leukocyte Esterase NEGATIVE Urine RBC 0-2 H Urine WBC 2-5 Ur Epithelial Cells FEW Urine Bacteria FEW Urine Mucus FEW Carbamazepine 12/30/17 12/30/17 12/31/17 12:15 12:15 05:45 WBC RBC Hgb Hct MCV MCH MCHC Differential RDW Plt Count MPV Add Manual Diff Neutrophils % Lymphocytes % Monocytes % Eosinophils % Basophils % Neutrophils (Manual) Lymphocytes Monocytes Eosinophils PT INR PTT (Actin FS) D-Dimer Sodium 139 Potassium 3.7 Chloride 105 Carbon Dioxide 25.0 Anion Gap 12.7 BUN 20 Creatinine 0.7 Est GFR ( Amer) > 60.0 Est GFR (Non-Af Amer) > 60.0 BUN/Creatinine Ratio 28.6 Glucose 88 Whole Bld Lactic Acid 1.43 Calcium 9.3 Total Bilirubin 0.2 L AST 16 ALT 12 Alkaline Phosphatase 47 Creatine Kinase 50 Troponin I 0.01 Total Protein 7.4 Albumin 3.9 L Globulin 3.5 Albumin/Globulin Ratio 1.1 Triglycerides Cholesterol LDL Cholesterol Direct HDL Cholesterol TSH Urine Source Urine Color Urine Clarity Urine pH Ur Specific [place] Urine Protein Urine Glucose (UA) Urine Ketones Urine Blood Urine Nitrate Urine Bilirubin Urine Urobilinogen Ur Leukocyte Esterase Urine RBC Urine WBC Ur Epithelial Cells Urine Bacteria Urine Mucus Carbamazepine 6.1 12/31/17 12/31/17 12/31/17 06:10 06:10 06:10 WBC 4.8 RBC 4.00 L Hgb 13.1 Hct 39.2 L MCV 98.0 MCH 32.7 H MCHC Differential 33.4 RDW 13.0 Plt Count 261 MPV 8.6 Add Manual Diff YES Neutrophils % Lymphocytes % Monocytes % Eosinophils % Basophils % Neutrophils (Manual) 42 Lymphocytes 43 Monocytes 6 Eosinophils 9 H PT INR PTT (Actin FS) D-Dimer 681 H Sodium 141 Potassium 3.6 Chloride 107 Carbon Dioxide 26.9 Anion Gap 10.7 BUN 13 Creatinine 0.8 Est GFR ( Amer) > 60.0 Est GFR (Non-Af Amer) > 60.0 BUN/Creatinine Ratio 16.3 Glucose 77 Whole Bld Lactic Acid Calcium 8.6 Total Bilirubin 0.4 AST 12 L ALT 9 Alkaline Phosphatase 38 Creatine Kinase Troponin I Total Protein 6.4 Albumin 3.3 L Globulin 3.1 Albumin/Globulin Ratio 1.1 Triglycerides 84 Cholesterol 135 LDL Cholesterol Direct 83 HDL Cholesterol 34 TSH 1.80 Urine Source Urine Color Urine Clarity Urine pH Ur Specific [place] Urine Protein Urine Glucose (UA) Urine Ketones Urine Blood Urine Nitrate Urine Bilirubin Urine Urobilinogen Ur Leukocyte Esterase Urine RBC Urine WBC Ur Epithelial Cells Urine Bacteria Urine Mucus Carbamazepine 12/31/17 06:10 WBC RBC Hgb Hct MCV MCH MCHC Differential RDW Plt Count MPV Add Manual Diff Neutrophils % Lymphocytes % Monocytes % Eosinophils % Basophils % Neutrophils (Manual) Lymphocytes Monocytes Eosinophils PT 11.7 H INR 1.14 PTT (Actin FS) D-Dimer Sodium Potassium Chloride Carbon Dioxide Anion Gap BUN Creatinine Est GFR ( Amer) Est GFR (Non-Af Amer) BUN/Creatinine Ratio Glucose Whole Bld Lactic Acid Calcium Total Bilirubin AST ALT Alkaline Phosphatase Creatine Kinase Troponin I Total Protein Albumin Globulin Albumin/Globulin Ratio Triglycerides Cholesterol LDL Cholesterol Direct HDL Cholesterol TSH Urine Source Urine Color Urine Clarity Urine pH Ur Specific [place] Urine Protein Urine Glucose (UA) Urine Ketones Urine Blood Urine Nitrate Urine Bilirubin Urine Urobilinogen Ur Leukocyte Esterase Urine RBC Urine WBC Ur Epithelial Cells Urine Bacteria Urine Mucus Carbamazepine Home Medication Medication Instructions Recorded Type Acetaminophen [Tylenol Extra 1,000 mg PO Q4HR PRN 03/26/17 History Strength] Acetaminophen [Tylenol] 650 mg PO Q4HR PRN 03/26/17 History Bisacodyl [Dulcolax 10 Mg Supp] 10 mg RC DAILY PRN 03/26/17 History Carbamazepine [Tegretol] 200 mg PO BID 03/26/17 History Cetirizine HCl [Zyrtec] 10 mg PO DAILY 03/26/17 History Divalproex ER [Depakote ER] 750 mg PO BID 03/26/17 History Docusate Sodium [Colace] 250 mg PO DAILY 03/26/17 History Fish Oil [[place] 3] 1,000 mg PO DAILY 03/26/17 History Fleet Enema 135 ml RC Q48H PRN 03/26/17 History Haloperidol [Haldol*] 2.5 mg PO BID 03/26/17 History Magnesium Hydroxide [Milk of 30 ml PO HS PRN 03/26/17 History Magnesia] OLANZapine [ZyPREXA] 10 mg PO TID 03/26/17 History Multivitamin with Minerals 1 tab PO DAILY 07/16/17 History [Multiple Vitamin] Pantoprazole [Protonix] 40 mg PO DAILY ect 07/24/17 Rx Amino Acids/Protein Hydrolys 30 ml PO BID 12/30/17 History [Pro-Stat Sugar Free Awc 887 ml] Calcium Carb/Vit D 500mg/200U 1 tab PO DAILY 12/30/17 History [Oscal w/Vitamin D] Psyllium Seed/Aspartame [Natural 1 tsp PO BID 12/30/17 History Fiber Powder] Current Medications Generic Name Dose Route Start Last Admin Trade Name Freq PRN Reason Stop Dose Admin Acetaminophen 1,000 mg 12/30/17 16:35 12/30/17 21:02 Tylenol Extra Strength PO 02/28/18 16:34 1,000 mg Q4HR PRN Administration Pain (Moderate) Acetaminophen 650 mg 12/31/17 08:23 Tylenol PO 03/01/18 08:22 Q4HR PRN Mild Pain or Fever >101 Albuterol/Ipratropium 3 ml 12/31/17 13:00 12/31/17 12:34 Duoneb Neb HHN 03/01/18 12:59 3 ml Q6HRT JUANITA Administration Bisacodyl 10 mg 12/31/17 08:23 Dulcolax 10 Mg Supp RC 03/01/18 08:22 DAILY PRN IF MOM INEFFECTIVE Calcium/Vitamin D 1 tab 12/31/17 09:00 12/31/17 09:22 Oscal W/Vitamin D PO 03/01/18 08:59 1 tab DAILY JUANITA Administration Carbamazepine 200 mg 12/30/17 17:00 12/31/17 09:22 Tegretol PO 02/28/18 16:59 Not Given BID JUANITA Protocol Divalproex Sodium 750 mg 12/31/17 09:00 Depakote Er PO 03/01/18 08:59 BID JUANITA Protocol Docusate Sodium 250 mg 12/30/17 17:00 10/10/18 09:54 Colace PO 02/28/18 16:59 250 mg BID JUANITA Administration Fish Oil 1,000 mg 12/31/17 09:00 12/31/17 09:22 [place] 3 PO 03/01/18 08:59 1,000 mg DAILY JUANITA Administration Haloperidol 2.5 mg 12/31/17 09:00 Haldol PO 03/01/18 08:59 BID JUANITA Protocol Dextrose/Sodium Chloride 1,000 mls @ 75 mls/hr 12/30/17 17:17 12/30/17 18:27 D5-0.45ns IV 02/28/18 17:16 75 mls/hr .[id number] JUANITA Administration Piperacillin Sod/Tazobactam 50 mls @ 100 mls/hr 12/30/17 21:00 12/31/17 13:51 Sod 3.375 gm/ Sodium Chloride IV 02/28/18 20:59 100 mls/hr Q8HR JUANITA Administration Loratadine 10 mg 12/31/17 09:00 12/31/17 09:27 Claritin PO 03/01/18 08:59 10 mg DAILY JUANITA Administration Magnesium Hydroxide 30 ml 12/30/17 16:41 Milk Of Magnesia PO 02/28/18 16:40 HS PRN Constipation Olanzapine 10 mg 12/31/17 09:00 Zyprexa PO 03/01/18 08:59 TID JUANITA Protocol Pantoprazole Sodium 40 mg 12/31/17 09:00 12/31/17 09:27 Protonix PO 03/01/18 08:59 40 mg DAILY JUNAITA Administration Psyllium Hydrophilic Mucilloid 1 pkt 12/31/17 17:00 Metamucil PO 03/01/18 16:59 BID JUANITA Sodium Phosphate 135 ml 12/31/17 08:23 Fleet Enema RC 03/01/18 08:22 Q48H PRN IF DULCOLAX INEFFECTIVE Review of Systems: A 12 point ROS was reviewed with the pertinent positive and negatives noted in the HPI. Social History Smoking Status Never smoker Family Medical History Unknown Physical Exam: General: Comfortable not in acute distress. HEENT: Head: Normocephalic atraumatic oral cavity: Moist, pink tongue. Eyes: No pallor and icterus. PERRLA. Neck: Supple, no JVD. No carotid bruit. Cardio: S1 and S2 within normal metabolism normal murmur or gallop. Respiratory: Vesicular breath sound, no crackles no wheezing. Abdominal: Soft, nontender, nondistended bowel sounds present Genital/Urinary: Deferred. Extremities: No cyanosis, no clubbing, no edema. Neurological: Alert, awake, unable to communicate. Assessment: 1. Bronchitis. 2. Dementia. 3. Depression. 4. Seizure disorder. Plan: Change Antibiotic to Zithromax Signed, Merrill Brandon M.D. [id number]
[2017-12-31] MEDS ORDERED: Azithromycin 500 MG in Sodium Chloride 0.9% 250 ML IV ONE ×2 (15:11→17:00)
[2017-12-31] MEDS ORDERED: Azithromycin 250 MG in Sodium Chloride 0.9% 250 ML IV SCH (16:00)
--- NOTE | 2017-12-31 18:06 | Consultation ---
DATE OF CONSULTATION: 12/31/[address] Bourne. HISTORY OF PRESENT ILLNESS: This is a 57-year-old male patient who came to the Emergency Room complaining of neck pain, abdominal pain, fever, chills, frequency and urgency of urination. PAST MEDICAL HISTORY: The patient has a history of bipolar with depression, hypertension, seizure disorder, and dementia. FAMILY HISTORY: Hypertension. SOCIAL HISTORY: No history of smoking, alcohol abuse. ALLERGIES: None. PHYSICAL EXAMINATION: VITAL SIGNS: Blood pressure 130/80, pulse 50, and respirations 20. HEAD: Normocephalic. No lumps or bumps. EYES: Pupils equal, reactive to light. Fundi showing AV nicking, sclerae white, conjunctivae pink. NECK: Carotid 2+. Normal upstroke. JVD flat. Thyroid not palpable. Lymph nodes not palpable. CHEST: Shows increased AP diameter. No kyphosis, scoliosis. LUNGS: Bilateral bronchovesicular breath sounds. Occasional wheeze. No rales. HEART: PMI fifth intercostal space with lateral to midclavicular line. S1, S2. No S3, S4, soft systolic murmur. ABDOMEN: Soft. Liver, spleen not palpable. No organomegaly. Bowel sounds active. NEUROLOGIC: Unremarkable. EXTREMITIES: Peripheral pulses 2+. No pedal edema. CLINICAL IMPRESSION: Hypertension, seizure disorder, dementia, depression, schizophrenia, and bipolar. PLAN: Admit the patient. We will continue present management. Have psych evaluation. JOB# [id number]
[2017-12-31] MEDS: D5-0.45NS 1,000 ML IV SCH (20:26)
--- NOTE | 2017-12-31 21:01 | Consultation ---
DATE OF CONSULTATION: 12/31/2017 REASON FOR CONSULTATION: Weight loss, decreased oral intake. HISTORY OF PRESENT ILLNESS: This consult was obtained through the courtesy of Dr. Bourne for this 57-year-old with history of a stroke about 7 or 8 years ago required craniotomy for brain surgery who now was transferred for possible pneumonia, but also is not eating enough and he is losing weight. The patient is communicating responsive, but not able to provide history. Information was obtained from the patient's mother and sister. PAST MEDICAL HISTORY: CVA. PAST SURGICAL HISTORY: Brain surgery and hernia repair. SOCIAL HISTORY: Ex-smoker, ex-alcoholic, IV drug abuser. FAMILY HISTORY: Negative for malignancy. ALLERGIES: No known drug allergies. MEDICATIONS: The patient is on Tylenol, DuoNeb, Dulcolax, Os-Wong, Tegretol, Depakote, Colace, [place]-3, Haldol, Claritin, milk of magnesia, Zyprexa, Protonix, Metamucil, enema. REVIEW OF SYSTEMS: The patient had an endoscopy about a year ago. He is not nauseated or vomiting. He does not have any diarrhea, tend to be constipated a little bit. PHYSICAL EXAMINATION: GENERAL: The patient is awake, responsive, mild distress, coughing a lot. VITAL SIGNS: Blood pressure is 108/52, heart rate 53, respiratory rate 17, and temperature is 98.2. HEAD AND NECK: Pupils reactive to light. Oral cavity, no lesion. NECK: Supple, no jugular venous distention, no palpable lymph node. CHEST: Good respiratory movements. LUNGS: Showed few rhonchi. CARDIOVASCULAR SYSTEM: Regular rate and rhythm. No murmur or gallop. ABDOMEN: Soft, positive bowel sounds. Abdomen is not tender. EXTREMITIES: Lower extremities, no edema. CENTRAL NERVOUS SYSTEM: Grossly nonfocal. LABORATORY DATA: White count is 4.8, H and H are 13.1 and 39.2 with platelets of 261. PT is 11.7 seconds. Chemistry showed normal liver enzymes, albumin of 3.3. IMPRESSION: A 57-year-old with cerebrovascular accident, now with decreased oral intake. She has a decreased oral intake, seems patient is eating, but not be eating enough, which might be select a variety, could be other issues, so we will get a swallowing evaluation. We will do caloric count. We will start the patient on Remeron to stimulate his appetite then further recommendations would follow. Other medical problems such as pneumonia and history of CVA, etc., as per Dr. Bourne. Thank you, Dr. Bourne for allowing me to participate in the care of the patient. If you have any further questions, please do not hesitate to call. JOB# [id number]
--- NOTE | 2017-12-31 21:21 | History & Physical ---
ADMIT DATE: 12/30/2017 HISTORY OF PRESENT ILLNESS: The patient is well known patient for me. The patient is from [place]. The patient had a history of fever, cough, and congestion for the last several days. He was admitted for sepsis. The patient has no history of headache, no neck pain, no abdominal pain, no nausea, no vomiting, no diarrhea. The patient's old chart was reviewed and EMS run sheet was reviewed. The patient has no fever, no chills, no rigors, no nasal discharge. He has been having some congestion and cough for several days. PHYSICAL EXAMINATION: GENERAL: Awake, alert, oriented. HEAD: Normal. SKIN: Normal. ENT: Normal. NECK: Supple, nontender. LUNGS: Bilateral rhonchi. CARDIOVASCULAR SYSTEM: S1, S2 heard. ABDOMEN: Soft. Bowel sounds are heard. CENTRAL NERVOUS SYSTEM: The patient is a kind of confused and does not complain of anything. The patient motor, sensory was normal. IMAGING: The patient's EKG showed normal sinus rhythm. DIAGNOSES: Fever, weakness, cough, congestion, pneumonia, sepsis, and psychosis. PLAN: The patient is being admitted and we will give IV antibiotics and also have ID doctor see the patient. I will also follow along with ID doctor. JOB# [id number]
[2018-01-01] MEDS: Albuterol/Ipratropium Neb 3 ML AERS HHN SCH ×4 (00:52→19:45)
[2018-01-01] MEDS: Acetaminophen 500 MG TAB PO PRN (02:24)
[2018-01-01] MEDS: Calcium Carb/Vit D 500 mg/200 U Tab PO SCH (08:44)
[2018-01-01] MEDS: Multivitamin w/ Minerals Tab PO SCH (08:44)
[2018-01-01] MEDS: Fish Oil 1,000 MG SGL PO SCH (08:46)
[2018-01-01] MEDS: Pantoprazole 40 mg/Packet PO SCH (08:47)
[2018-01-01] MEDS: D5-0.45NS 1,000 ML IV SCH (13:37)
--- NOTE | 2018-01-01 15:04 | Internal Medicine Prog Note ---
Internal Medicine Subjective - Subjective Patient is:: awake Patient Complaints of:: congestion Per staff patient has:: no adverse event Internal Medicine Objective - Results Result Diagrams: 12/31/17 06:10 12/31/17 06:10 Recent Labs: Laboratory Last Values WBC 4.8 Th/cmm (4.8-10.8) 12/31/17 06:10 RBC 4.00 Mil/cmm (4.30-5.70) L 12/31/17 06:10 Hgb 13.1 gm/dL (12-16) 12/31/17 06:10 Hct 39.2 % (41.0-60) L 12/31/17 06:10 MCV 98.0 fl (80-99) 12/31/17 06:10 MCH 32.7 pg (26.0-30.0) H 12/31/17 06:10 MCHC Differential 33.4 pg (28.0-36.0) 12/31/17 06:10 RDW 13.0 % (11.5-20.0) 12/31/17 06:10 Plt Count 261 Th/cmm (150-400) 12/31/17 06:10 MPV 8.6 fl 12/31/17 06:10 Add Manual Diff YES 12/31/17 06:10 Neutrophils % 62.7 % (40.0-80.0) 12/30/17 12:15 Lymphocytes % 23.7 % (20.0-50.0) 12/30/17 12:15 Monocytes % 7.9 % (2.0-10.0) 12/30/17 12:15 Eosinophils % 5.5 % (0.0-5.0) H 12/30/17 12:15 Basophils % 0.2 % (0.0-2.0) 12/30/17 12:15 Neutrophils (Manual) 42 % (40-80) 12/31/17 06:10 Lymphocytes 43 % (20-50) 12/31/17 06:10 Monocytes 6 % (2-10) 12/31/17 06:10 Eosinophils 9 % (0-5) H 12/31/17 06:10 PT 11.7 SECONDS (9.5-11.5) H 12/31/17 06:10 INR 1.14 (0.5-1.4) 12/31/17 06:10 PTT (Actin FS) 24.6 SECONDS (26.0-38.0) L 12/30/17 12:15 D-Dimer 681 ng/mL (100-400) H 12/31/17 06:10 Sodium 141 mEq/L (136-145) 12/31/17 06:10 Potassium 3.6 mEq/L (3.5-5.1) 12/31/17 06:10 Chloride 107 mEq/L (98-107) 12/31/17 06:10 Carbon Dioxide 26.9 mEq/L (21.0-31.0) 12/31/17 06:10 Anion Gap 10.7 (7.0-16.0) 12/31/17 06:10 BUN 13 mg/dL (7-25) 12/31/17 06:10 Creatinine 0.8 mg/dL (0.7-1.3) 12/31/17 06:10 Est GFR ( Amer) > 60.0 ml/min (>90) 12/31/17 06:10 Est GFR (Non-Af Amer) > 60.0 ml/min 12/31/17 06:10 BUN/Creatinine Ratio 16.3 12/31/17 06:10 Glucose 77 mg/dL (70-105) 12/31/17 06:10 Whole Bld Lactic Acid 1.43 mmol/L (0.60-1.99) 12/30/17 12:15 Calcium 8.6 mg/dL (8.6-10.3) 12/31/17 06:10 Total Bilirubin 0.4 mg/dL (0.3-1.0) 12/31/17 06:10 AST 12 U/L (13-39) L 12/31/17 06:10 ALT 9 U/L (7-52) 12/31/17 06:10 Alkaline Phosphatase 38 U/L (34-104) 12/31/17 06:10 Creatine Kinase 50 U/L (30-223) 12/30/17 12:15 Troponin I 0.01 ng/mL (0.01-0.05) 12/30/17 12:15 Total Protein 6.4 gm/dL (6.0-8.3) 12/31/17 06:10 Albumin 3.3 gm/dL (4.2-5.5) L 12/31/17 06:10 Globulin 3.1 gm/dL 12/31/17 06:10 Albumin/Globulin Ratio 1.1 (1.0-1.8) 12/31/17 06:10 Triglycerides 84 mg/dL (<150) 12/31/17 06:10 Cholesterol 135 mg/dL (<200) 12/31/17 06:10 LDL Cholesterol Direct 83 mg/dL (75-193) 12/31/17 06:10 HDL Cholesterol 34 mg/dL (23-92) 12/31/17 06:10 Prostate Specific Ag 0.3 ng/mL (0.0-4.0) 12/31/17 06:10 TSH 1.80 uIU/ml (0.34-5.60) 12/31/17 06:10 Urine Source MIDSTREAM 12/30/17 12:15 Urine Color YELLOW 12/30/17 12:15 Urine Clarity CLEAR (CLEAR) 12/30/17 12:15 Urine pH 6.5 (4.6 - 8.0) 12/30/17 12:15 Ur Specific [place] 1.025 (1.005-1.030) 12/30/17 12:15 Urine Protein NEGATIVE mg/dL (NEGATIVE) 12/30/17 12:15 Urine Glucose (UA) NEGATIVE mg/dL (NEGATIVE) 12/30/17 12:15 Urine Ketones NEGATIVE mg/dL (NEGATIVE) 12/30/17 12:15 Urine Blood NEGATIVE (NEGATIVE) 12/30/17 12:15 Urine Nitrate NEGATIVE (NEGATIVE) 12/30/17 12:15 Urine Bilirubin NEGATIVE (NEGATIVE) 12/30/17 12:15 Urine Urobilinogen 0.2 E.U./dL (0.2 - 1.0) 12/30/17 12:15 Ur Leukocyte Esterase NEGATIVE (NEGATIVE) 12/30/17 12:15 Urine RBC 0-2 /hpf (0-5) H 12/30/17 12:15 Urine WBC 2-5 /hpf (0-5) 12/30/17 12:15 Ur Epithelial Cells FEW /lpf (FEW) 12/30/17 12:15 Urine Bacteria FEW /hpf (NONE SEEN) 12/30/17 12:15 Urine Mucus FEW /lpf (FEW) 12/30/17 12:15 Carbamazepine 6.1 ug/ml (4.0-12.0) 12/31/17 05:45 - Physical Exam Vitals and I&O: Vital Signs Temp 97.0 F 01/01/18 12:03 Pulse 67 01/01/18 14:15 Resp 18 01/01/18 14:15 BP 109/67 01/01/18 12:03 Pulse Ox 94 01/01/18 14:15 Intake & Output 12/31/17 01/01/18 01/01/18 18:59 06:59 18:59 Intake Total 1720 1000 Balance 1720 1000 Weight (lbs) 73.482 kg Intake: Intake, IV Amount 1000 1000 D5-0.45NS 1,000 ml @ 75 1000 1000 mls/hr IV .[id number] [facility] Rx #:[id number] Oral 720 Other: # Voids 3 Weight Source Bedscale Active Medications: Current Medications Acetaminophen (Tylenol Extra Strength) 1,000 mg PO Q4HR PRN PRN Reason: Pain (Moderate) Stop: 02/28/18 16:34 Last Admin: 01/01/18 02:24 Dose: 1,000 mg Acetaminophen (Tylenol) 650 mg PO Q4HR PRN PRN Reason: Mild Pain or Fever >101 Stop: 03/01/18 08:22 Albuterol/Ipratropium (Duoneb Neb) 3 ml HHN Q6HRT [facility] Stop: 03/01/18 12:59 Last Admin: 01/01/18 14:15 Dose: 3 ml Bisacodyl (Dulcolax 10 Mg Supp) 10 mg RC DAILY PRN PRN Reason: IF MOM INEFFECTIVE Stop: 03/01/18 08:22 Calcium/Vitamin D (Oscal W/Vitamin D) 1 tab PO DAILY [facility] Stop: 03/01/18 08:59 Last Admin: 01/01/18 08:44 Dose: 1 tab Carbamazepine (Tegretol) 200 mg PO BID [facility]; Protocol Stop: 02/28/18 16:59 Last Admin: 01/01/18 08:45 Dose: 200 mg Divalproex Sodium (Depakote Er) 750 mg PO BID [facility]; Protocol Stop: 03/01/18 08:59 Last Admin: 01/01/18 08:44 Dose: 750 mg Docusate Sodium (Colace) 250 mg PO BID [facility] Stop: 02/28/18 16:59 Last Admin: 01/01/18 08:47 Dose: 250 mg Fish Oil ([place] 3) 1,000 mg PO DAILY [facility] Stop: 03/01/18 08:59 Last Admin: 01/01/18 08:46 Dose: 1,000 mg Haloperidol (Haldol) 2.5 mg PO BID [facility]; Protocol Stop: 03/01/18 08:59 Last Admin: 01/01/18 08:46 Dose: 2.5 mg Dextrose/Sodium Chloride (D5-0.45ns) 1,000 mls @ 75 mls/hr IV .[id number] [facility] Stop: 02/28/18 17:16 Last Admin: 01/01/18 13:37 Dose: 75 mls/hr Azithromycin 250 mg/ Sodium (Chloride) 250 mls @ 250 mls/hr IV Q24H [facility] Stop: 03/02/18 15:59 Loratadine (Claritin) 10 mg PO DAILY [facility] Stop: 03/01/18 08:59 Last Admin: 01/01/18 08:47 Dose: 10 mg Magnesium Hydroxide (Milk Of Magnesia) 30 ml PO HS PRN PRN Reason: Constipation Stop: 02/28/18 16:40 Mirtazapine (Remeron) 15 mg PO HS [facility]; Protocol Stop: 03/01/18 20:59 Last Admin: 12/31/17 20:26 Dose: 15 mg Olanzapine (Zyprexa) 10 mg PO TID [facility]; Protocol Stop: 03/01/18 08:59 Last Admin: 01/01/18 13:34 Dose: Not Given Pantoprazole Sodium (Protonix) 40 mg PO DAILY [facility] Stop: 03/01/18 08:59 Last Admin: 01/01/18 08:47 Dose: 40 mg Psyllium Hydrophilic Mucilloid (Metamucil) 1 pkt PO BID [facility] Stop: 03/01/18 16:59 Last Admin: 01/01/18 08:47 Dose: 1 pkt Sodium Phosphate (Fleet Enema) 135 ml RC Q48H PRN PRN Reason: IF DULCOLAX INEFFECTIVE Stop: 03/01/18 08:22 General: alert HEENT: NC/AT Neck: Supple Lungs: congested, no CTAB Abdomen: soft, non-tender Extremities: clear - Procedures Procedures: Procedures Procedure Code Date EGD BIOPSY SINGLE/MULTIPLE 05113 07/16/17 EXCISION OF DUODENUM, ENDO, DIAGN [id number] 07/16/17 EXCISION OF STOMACH, ENDO, DIAGN [id number] 07/16/17 Internal Medicine Assmt/Plan - Assessment Assessment: fever weakness cough congestion pneumonia sepsis psychosis - Plan Plan: as per order sheet Nutritional Asmnt/Malnutr-PDOC - Dietary Evaluation Malnutrition Findings (Please click <Entered> for more info): Nutritional Asmnt/Malnutrition Start: 12/31/17 14: 17 Text: Status: Complete Freq: Protocol: Document 12/31/17 14:17 DENISA (Rec: 12/31/17 14:24 SHANTELLVEENA EVERARDO) Nutritional Asmnt/Malnutrition Patient General Information Nutritional Screening High Risk Consult Diagnosis pneumonia, sepsis Pertinent Medical Hx/Surgical Hx HTN, seizures, dementia, depression, schizophrenia Subjective Information Received diet consult for wt loss. Per SNF nursing staff, pt is eating well, but losing wt. Pt laying in bed at time of visit. Pt's confused and speech unclear; unable to communicate. Per RN, pt finished 60% of breakfast today, appeared good appetite. Current Diet Order/ Nutrition Support [facility] soft chopped; Ensure Enlive BID Pertinent Medications dulcolax, oscal w/ Vit D, D5-0 .45ns, colace, omega 3, MOM, protonix, piperacilin Pertinent Labs 12/30: Alb 3.9 12/31: Alb 3.3 Nutritional Hx/Data Height 1.73 m Height (Calculated Centimeters) 172.7 Current Weight (lbs) 73.936 kg Weight (Calculated Kilograms) 73.9 Weight (Calculated Grams) 88109.6 [place] Body Weight 154 lb Body Mass Index (BMI) 24.7 Weight Status Approriate GI Symptoms GI Symptoms None Last BM none noted Difficult in: None Food Allergies No Skin Integrity/Comment: doreen dobson 14 Estimated Nutritional Goals BEE in Kcals: Using Current wt Calories/Kcals/Kg 30-35 Kcals Calculated 6132-7595 Protein: Using Current wt Protein g/k.5 Protein Calculated 111g Fluid: ml 2344-8192 (1 ml/kcal) Nutritional Problem 1. Problem Problem increased energy and protein needs Etiology healing for pneumonia and sepsis Signs/Symptoms: estimated 9419-4233 kcals and 111 g protein for pt weighing 74 kg Malnutrition Alert Is there a minimum of two criteria No selected? Query Text:Check all the applicable criteria. A minimum of two criteria are recommended for diagnosis of either severe or non-severe malnutrition. Malnutrition Related to Morbid Obesity Malnutrition related to morbid obesity No Intervention/Recommendation Comments 1. Continue with [facility] soft chopped diet as order and Ensure Enlive BID, which will meet 100% of nutritional needs . Nurses to assist pt with meals and encourage eating. 2. Monitor PO intake, wt, labs and skin integrity 3. F/U as moderate risk in 3-5 days, 01/03-01/05; PO check 01/02 Expected Outcomes/Goals Expected Outcomes/Goals 1. PO intake at least 75% of all meals. 2. Wt stability, skin to remain intact, labs to approach normal limits Reviewed by Pari Owen RD
[2018-01-01] MEDS: Azithromycin 250 MG in Sodium Chloride 0.9% 250 ML IV SCH (16:36)
--- NOTE | 2018-01-01 18:17 | GI Progress Note ---
Subjective - Review of Systems Service Date: 01/01/18 Events since last encounter: No events Subjective: Not eating Objective - Results Result Diagrams: 12/31/17 06:10 12/31/17 06:10 Recent Labs: Laboratory Last Values WBC 4.8 Th/cmm (4.8-10.8) 12/31/17 06:10 RBC 4.00 Mil/cmm (4.30-5.70) L 12/31/17 06:10 Hgb 13.1 gm/dL (12-16) 12/31/17 06:10 Hct 39.2 % (41.0-60) L 12/31/17 06:10 MCV 98.0 fl (80-99) 12/31/17 06:10 MCH 32.7 pg (26.0-30.0) H 12/31/17 06:10 MCHC Differential 33.4 pg (28.0-36.0) 12/31/17 06:10 RDW 13.0 % (11.5-20.0) 12/31/17 06:10 Plt Count 261 Th/cmm (150-400) 12/31/17 06:10 MPV 8.6 fl 12/31/17 06:10 Add Manual Diff YES 12/31/17 06:10 Neutrophils % 62.7 % (40.0-80.0) 12/30/17 12:15 Lymphocytes % 23.7 % (20.0-50.0) 12/30/17 12:15 Monocytes % 7.9 % (2.0-10.0) 12/30/17 12:15 Eosinophils % 5.5 % (0.0-5.0) H 12/30/17 12:15 Basophils % 0.2 % (0.0-2.0) 12/30/17 12:15 Neutrophils (Manual) 42 % (40-80) 12/31/17 06:10 Lymphocytes 43 % (20-50) 12/31/17 06:10 Monocytes 6 % (2-10) 12/31/17 06:10 Eosinophils 9 % (0-5) H 12/31/17 06:10 PT 11.7 SECONDS (9.5-11.5) H 12/31/17 06:10 INR 1.14 (0.5-1.4) 12/31/17 06:10 PTT (Actin FS) 24.6 SECONDS (26.0-38.0) L 12/30/17 12:15 D-Dimer 681 ng/mL (100-400) H 12/31/17 06:10 Sodium 141 mEq/L (136-145) 12/31/17 06:10 Potassium 3.6 mEq/L (3.5-5.1) 12/31/17 06:10 Chloride 107 mEq/L (98-107) 12/31/17 06:10 Carbon Dioxide 26.9 mEq/L (21.0-31.0) 12/31/17 06:10 Anion Gap 10.7 (7.0-16.0) 12/31/17 06:10 BUN 13 mg/dL (7-25) 12/31/17 06:10 Creatinine 0.8 mg/dL (0.7-1.3) 12/31/17 06:10 Est GFR ( Amer) > 60.0 ml/min (>90) 12/31/17 06:10 Est GFR (Non-Af Amer) > 60.0 ml/min 12/31/17 06:10 BUN/Creatinine Ratio 16.3 12/31/17 06:10 Glucose 77 mg/dL (70-105) 12/31/17 06:10 Whole Bld Lactic Acid 1.43 mmol/L (0.60-1.99) 12/30/17 12:15 Calcium 8.6 mg/dL (8.6-10.3) 12/31/17 06:10 Total Bilirubin 0.4 mg/dL (0.3-1.0) 12/31/17 06:10 AST 12 U/L (13-39) L 12/31/17 06:10 ALT 9 U/L (7-52) 12/31/17 06:10 Alkaline Phosphatase 38 U/L (34-104) 12/31/17 06:10 Creatine Kinase 50 U/L (30-223) 12/30/17 12:15 Troponin I 0.01 ng/mL (0.01-0.05) 12/30/17 12:15 Total Protein 6.4 gm/dL (6.0-8.3) 12/31/17 06:10 Albumin 3.3 gm/dL (4.2-5.5) L 12/31/17 06:10 Globulin 3.1 gm/dL 12/31/17 06:10 Albumin/Globulin Ratio 1.1 (1.0-1.8) 12/31/17 06:10 Triglycerides 84 mg/dL (<150) 12/31/17 06:10 Cholesterol 135 mg/dL (<200) 12/31/17 06:10 LDL Cholesterol Direct 83 mg/dL (75-193) 12/31/17 06:10 HDL Cholesterol 34 mg/dL (23-92) 12/31/17 06:10 Prostate Specific Ag 0.3 ng/mL (0.0-4.0) 12/31/17 06:10 TSH 1.80 uIU/ml (0.34-5.60) 12/31/17 06:10 Urine Source MIDSTREAM 12/30/17 12:15 Urine Color YELLOW 12/30/17 12:15 Urine Clarity CLEAR (CLEAR) 12/30/17 12:15 Urine pH 6.5 (4.6 - 8.0) 12/30/17 12:15 Ur Specific [place] 1.025 (1.005-1.030) 12/30/17 12:15 Urine Protein NEGATIVE mg/dL (NEGATIVE) 12/30/17 12:15 Urine Glucose (UA) NEGATIVE mg/dL (NEGATIVE) 12/30/17 12:15 Urine Ketones NEGATIVE mg/dL (NEGATIVE) 12/30/17 12:15 Urine Blood NEGATIVE (NEGATIVE) 12/30/17 12:15 Urine Nitrate NEGATIVE (NEGATIVE) 12/30/17 12:15 Urine Bilirubin NEGATIVE (NEGATIVE) 12/30/17 12:15 Urine Urobilinogen 0.2 E.U./dL (0.2 - 1.0) 12/30/17 12:15 Ur Leukocyte Esterase NEGATIVE (NEGATIVE) 12/30/17 12:15 Urine RBC 0-2 /hpf (0-5) H 12/30/17 12:15 Urine WBC 2-5 /hpf (0-5) 12/30/17 12:15 Ur Epithelial Cells FEW /lpf (FEW) 12/30/17 12:15 Urine Bacteria FEW /hpf (NONE SEEN) 12/30/17 12:15 Urine Mucus FEW /lpf (FEW) 12/30/17 12:15 Carbamazepine 6.1 ug/ml (4.0-12.0) 12/31/17 05:45 - Physical Exam Vitals and I&O: Vital Signs Temp 97.0 F 01/01/18 12:03 Pulse 67 01/01/18 14:15 Resp 18 01/01/18 14:15 BP 109/67 01/01/18 12:03 Pulse Ox 94 01/01/18 14:15 Intake & Output 12/31/17 01/01/18 01/01/18 18:59 06:59 18:59 Intake Total 1720 1000 Balance 1720 1000 Weight (lbs) 73.482 kg Intake: Intake, IV Amount 1000 1000 D5-0.45NS 1,000 ml @ 75 1000 1000 mls/hr IV .[id number] [facility] Rx #:[id number] Oral 720 Other: # Voids 3 Weight Source Bedscale Active Medications: Current Medications Acetaminophen (Tylenol Extra Strength) 1,000 mg PO Q4HR PRN PRN Reason: Pain (Moderate) Stop: 02/28/18 16:34 Last Admin: 01/01/18 02:24 Dose: 1,000 mg Acetaminophen (Tylenol) 650 mg PO Q4HR PRN PRN Reason: Mild Pain or Fever >101 Stop: 03/01/18 08:22 Albuterol/Ipratropium (Duoneb Neb) 3 ml HHN Q6HRT [facility] Stop: 03/01/18 12:59 Last Admin: 01/01/18 14:15 Dose: 3 ml Bisacodyl (Dulcolax 10 Mg Supp) 10 mg RC DAILY PRN PRN Reason: IF MOM INEFFECTIVE Stop: 03/01/18 08:22 Calcium/Vitamin D (Oscal W/Vitamin D) 1 tab PO DAILY [facility] Stop: 03/01/18 08:59 Last Admin: 01/01/18 08:44 Dose: 1 tab Carbamazepine (Tegretol) 200 mg PO BID [facility]; Protocol Stop: 02/28/18 16:59 Last Admin: 01/01/18 16:23 Dose: 200 mg Divalproex Sodium (Depakote Er) 750 mg PO BID [facility]; Protocol Stop: 03/01/18 08:59 Last Admin: 01/01/18 16:24 Dose: 750 mg Docusate Sodium (Colace) 250 mg PO BID [facility] Stop: 02/28/18 16:59 Last Admin: 01/01/18 16:22 Dose: 250 mg Fish Oil ([place] 3) 1,000 mg PO DAILY [facility] Stop: 03/01/18 08:59 Last Admin: 01/01/18 08:46 Dose: 1,000 mg Haloperidol (Haldol) 2.5 mg PO BID [facility]; Protocol Stop: 03/01/18 08:59 Last Admin: 01/01/18 16:23 Dose: 2.5 mg Dextrose/Sodium Chloride (D5-0.45ns) 1,000 mls @ 75 mls/hr IV .[id number] [facility] Stop: 02/28/18 17:16 Last Admin: 01/01/18 13:37 Dose: 75 mls/hr Azithromycin 250 mg/ Sodium (Chloride) 250 mls @ 250 mls/hr IV Q24H [facility] Stop: 03/02/18 15:59 Last Admin: 01/01/18 16:36 Dose: 250 mls/hr Loratadine (Claritin) 10 mg PO DAILY [facility] Stop: 03/01/18 08:59 Last Admin: 01/01/18 08:47 Dose: 10 mg Magnesium Hydroxide (Milk Of Magnesia) 30 ml PO HS PRN PRN Reason: Constipation Stop: 02/28/18 16:40 Mirtazapine (Remeron) 15 mg PO HS [facility]; Protocol Stop: 03/01/18 20:59 Last Admin: 12/31/17 20:26 Dose: 15 mg Olanzapine (Zyprexa) 10 mg PO TID [facility]; Protocol Stop: 03/01/18 08:59 Last Admin: 01/01/18 13:34 Dose: Not Given Pantoprazole Sodium (Protonix) 40 mg PO DAILY [facility] Stop: 03/01/18 08:59 Last Admin: 01/01/18 08:47 Dose: 40 mg Psyllium Hydrophilic Mucilloid (Metamucil) 1 pkt PO BID [facility] Stop: 03/01/18 16:59 Last Admin: 01/01/18 16:22 Dose: 1 pkt Sodium Phosphate (Fleet Enema) 135 ml RC Q48H PRN PRN Reason: IF DULCOLAX INEFFECTIVE Stop: 03/01/18 08:22 General: Cooperative, No acute distress Cardiovascular: Regular rate, Normal S1, Normal S2 Lungs: Clear to auscultation Abdomen: Bowel sounds, Soft - Procedures Procedures: Procedures Procedure Code Date EGD BIOPSY SINGLE/MULTIPLE 61151 07/16/17 EXCISION OF DUODENUM, ENDO, DIAGN [id number] 07/16/17 EXCISION OF STOMACH, ENDO, DIAGN [id number] 07/16/17 Assessment/Plan - Problem List Patient Problems: All Active Problems WEAKNESS, WEIGHT LOSS, CXR INFILTRATE (Acute) - Assessment Assessment: 1. Weight Loss 2. Decrease oral intake - Plan Plan: 1. Weight Loss Could be due to decrease oral intake S./P EGD this year ( July) 2. Decrease oral intake Cont Remeron and supplements)
[2018-01-02] MEDS: Albuterol/Ipratropium Neb 3 ML AERS HHN SCH ×4 (01:07→18:59)
--- NOTE | 2018-01-02 07:05 | Progress Notes ---
DATE: SUBJECTIVE: Chart reviewed and the patient interviewed. Also discussed the patient's condition with the staff and reviewed records and labs. The patient still mumbles and he still seems to be slightly confused, but no major behavioral problems. The patient also still seems to be depressed. He is trying to interact, but has difficulty articulating his feelings. Otherwise, the patient is compliant with taking Tegretol and the Depakote with no side effects. Also taking Haldol 2.5 mg twice a day with no behavioral problems. Also, the patient continues to take Remeron. ASSESSMENT: The patient is calm and showing no major behavioral problems. TREATMENT PLAN: We will continue monitoring behavior and continue current medications and continue to follow up. [facility]# [id number]
--- NOTE | 2018-01-02 07:46 | Diagnostic Imaging Report ---
CT scan of the brain without intravenous contrast HISTORY: Stroke, CVA Total DLP equals 848 CTDI equals 62.0 Axial sections were obtained from the base of the skull the vertex. Prior exams are not available for comparison. Extensive surgical changes noted about the right temporal and parietal regions of the skull. Findings consistent with encephalomalacia adjacent to the surgical sites within the right temporal and parietal regions. In addition, encephalomalacia noted in the right occipital area. Extra-axial CSF noted adjacent to the posterior margin of the right cerebellar hemisphere. Findings consistent with a retrocerebellar arachnoid cyst. No acute parenchymal abnormalities. No intracerebral hemorrhage. No mass effect or shift of midline structures. IMPRESSION: 1. Extensive surgical changes about the right skull with associated encephalomalacia and chronic change. 2. 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 3. No acute abnormalities
[2018-01-02] MEDS: Calcium Carb/Vit D 500 mg/200 U Tab PO SCH (10:26)
[2018-01-02] MEDS: Fish Oil 1,000 MG SGL PO SCH (10:26)
[2018-01-02] MEDS: Pantoprazole 40 mg/Packet PO SCH (10:26)
[2018-01-02] MEDS: Multivitamin w/ Minerals Tab PO SCH (10:26)
[2018-01-02] MEDS ORDERED: Probiotic Screen MC PRN (10:57)
--- NOTE | 2018-01-02 13:06 | Infectious Disease Prog Note ---
Infectious Disease Subjective - Review of Systems Service Date: 01/02/18 Subjective: doing well, n o fever. Infectious Disease Objective - Results Result Diagrams: 12/31/17 06:10 12/31/17 06:10 Recent Labs: Laboratory Last Values WBC 4.8 Th/cmm (4.8-10.8) 12/31/17 06:10 RBC 4.00 Mil/cmm (4.30-5.70) L 12/31/17 06:10 Hgb 13.1 gm/dL (12-16) 12/31/17 06:10 Hct 39.2 % (41.0-60) L 12/31/17 06:10 MCV 98.0 fl (80-99) 12/31/17 06:10 MCH 32.7 pg (26.0-30.0) H 12/31/17 06:10 MCHC Differential 33.4 pg (28.0-36.0) 12/31/17 06:10 RDW 13.0 % (11.5-20.0) 12/31/17 06:10 Plt Count 261 Th/cmm (150-400) 12/31/17 06:10 MPV 8.6 fl 12/31/17 06:10 Add Manual Diff YES 12/31/17 06:10 Neutrophils % 62.7 % (40.0-80.0) 12/30/17 12:15 Lymphocytes % 23.7 % (20.0-50.0) 12/30/17 12:15 Monocytes % 7.9 % (2.0-10.0) 12/30/17 12:15 Eosinophils % 5.5 % (0.0-5.0) H 12/30/17 12:15 Basophils % 0.2 % (0.0-2.0) 12/30/17 12:15 Neutrophils (Manual) 42 % (40-80) 12/31/17 06:10 Lymphocytes 43 % (20-50) 12/31/17 06:10 Monocytes 6 % (2-10) 12/31/17 06:10 Eosinophils 9 % (0-5) H 12/31/17 06:10 PT 11.7 SECONDS (9.5-11.5) H 12/31/17 06:10 INR 1.14 (0.5-1.4) 12/31/17 06:10 PTT (Actin FS) 24.6 SECONDS (26.0-38.0) L 12/30/17 12:15 D-Dimer 681 ng/mL (100-400) H 12/31/17 06:10 Sodium 141 mEq/L (136-145) 12/31/17 06:10 Potassium 3.6 mEq/L (3.5-5.1) 12/31/17 06:10 Chloride 107 mEq/L (98-107) 12/31/17 06:10 Carbon Dioxide 26.9 mEq/L (21.0-31.0) 12/31/17 06:10 Anion Gap 10.7 (7.0-16.0) 12/31/17 06:10 BUN 13 mg/dL (7-25) 12/31/17 06:10 Creatinine 0.8 mg/dL (0.7-1.3) 12/31/17 06:10 Est GFR ( Amer) > 60.0 ml/min (>90) 12/31/17 06:10 Est GFR (Non-Af Amer) > 60.0 ml/min 12/31/17 06:10 BUN/Creatinine Ratio 16.3 12/31/17 06:10 Glucose 77 mg/dL (70-105) 12/31/17 06:10 Whole Bld Lactic Acid 1.43 mmol/L (0.60-1.99) 12/30/17 12:15 Calcium 8.6 mg/dL (8.6-10.3) 12/31/17 06:10 Total Bilirubin 0.4 mg/dL (0.3-1.0) 12/31/17 06:10 AST 12 U/L (13-39) L 12/31/17 06:10 ALT 9 U/L (7-52) 12/31/17 06:10 Alkaline Phosphatase 38 U/L (34-104) 12/31/17 06:10 Creatine Kinase 50 U/L (30-223) 12/30/17 12:15 Troponin I 0.01 ng/mL (0.01-0.05) 12/30/17 12:15 Total Protein 6.4 gm/dL (6.0-8.3) 12/31/17 06:10 Albumin 3.3 gm/dL (4.2-5.5) L 12/31/17 06:10 Globulin 3.1 gm/dL 12/31/17 06:10 Albumin/Globulin Ratio 1.1 (1.0-1.8) 12/31/17 06:10 Triglycerides 84 mg/dL (<150) 12/31/17 06:10 Cholesterol 135 mg/dL (<200) 12/31/17 06:10 LDL Cholesterol Direct 83 mg/dL (75-193) 12/31/17 06:10 HDL Cholesterol 34 mg/dL (23-92) 12/31/17 06:10 Prostate Specific Ag 0.3 ng/mL (0.0-4.0) 12/31/17 06:10 TSH 1.80 uIU/ml (0.34-5.60) 12/31/17 06:10 Urine Source MIDSTREAM 12/30/17 12:15 Urine Color YELLOW 12/30/17 12:15 Urine Clarity CLEAR (CLEAR) 12/30/17 12:15 Urine pH 6.5 (4.6 - 8.0) 12/30/17 12:15 Ur Specific [place] 1.025 (1.005-1.030) 12/30/17 12:15 Urine Protein NEGATIVE mg/dL (NEGATIVE) 12/30/17 12:15 Urine Glucose (UA) NEGATIVE mg/dL (NEGATIVE) 12/30/17 12:15 Urine Ketones NEGATIVE mg/dL (NEGATIVE) 12/30/17 12:15 Urine Blood NEGATIVE (NEGATIVE) 12/30/17 12:15 Urine Nitrate NEGATIVE (NEGATIVE) 12/30/17 12:15 Urine Bilirubin NEGATIVE (NEGATIVE) 12/30/17 12:15 Urine Urobilinogen 0.2 E.U./dL (0.2 - 1.0) 12/30/17 12:15 Ur Leukocyte Esterase NEGATIVE (NEGATIVE) 12/30/17 12:15 Urine RBC 0-2 /hpf (0-5) H 12/30/17 12:15 Urine WBC 2-5 /hpf (0-5) 12/30/17 12:15 Ur Epithelial Cells FEW /lpf (FEW) 12/30/17 12:15 Urine Bacteria FEW /hpf (NONE SEEN) 12/30/17 12:15 Urine Mucus FEW /lpf (FEW) 12/30/17 12:15 Carbamazepine 6.1 ug/ml (4.0-12.0) 12/31/17 05:45 - Physical Exam Vitals and I&O: Vital Signs Temp 98.1 F 01/02/18 11:30 Pulse 63 01/02/18 11:30 Resp 18 01/02/18 11:30 BP 90/58 01/02/18 11:30 Pulse Ox 99 01/02/18 11:30 Intake & Output 01/01/18 01/02/18 01/02/18 18:59 06:59 18:59 Intake Total 1000 840 Balance 1000 840 Weight (lbs) 73.482 kg Intake: Intake, IV Amount 1000 D5-0.45NS 1,000 ml @ 75 1000 mls/hr IV .[id number] [facility] Rx #:[id number] Oral 840 Other: # Voids 4 Weight Source Bedscale Active Medications: Current Medications Acetaminophen (Tylenol Extra Strength) 1,000 mg PO Q4HR PRN PRN Reason: Pain (Moderate) Stop: 02/28/18 16:34 Last Admin: 01/01/18 02:24 Dose: 1,000 mg Acetaminophen (Tylenol) 650 mg PO Q4HR PRN PRN Reason: Mild Pain or Fever >101 Stop: 03/01/18 08:22 Albuterol/Ipratropium (Duoneb Neb) 3 ml HHN Q6HRT [facility] Stop: 03/01/18 12:59 Last Admin: 01/02/18 07:11 Dose: 3 ml Bisacodyl (Dulcolax 10 Mg Supp) 10 mg RC DAILY PRN PRN Reason: IF MOM INEFFECTIVE Stop: 03/01/18 08:22 Calcium/Vitamin D (Oscal W/Vitamin D) 1 tab PO DAILY [facility] Stop: 03/01/18 08:59 Last Admin: 01/02/18 10:26 Dose: 1 tab Carbamazepine (Tegretol) 200 mg PO BID [facility]; Protocol Stop: 02/28/18 16:59 Last Admin: 01/02/18 10:27 Dose: 200 mg Divalproex Sodium (Depakote Er) 750 mg PO BID [facility]; Protocol Stop: 03/01/18 08:59 Last Admin: 01/02/18 10:37 Dose: 750 mg Docusate Sodium (Colace) 250 mg PO BID [facility] Stop: 02/28/18 16:59 Last Admin: 01/02/18 10:27 Dose: 250 mg Fish Oil ([place] 3) 1,000 mg PO DAILY [facility] Stop: 03/01/18 08:59 Last Admin: 01/02/18 10:26 Dose: 1,000 mg Haloperidol (Haldol) 2.5 mg PO BID [facility]; Protocol Stop: 03/01/18 08:59 Last Admin: 01/02/18 10:27 Dose: 2.5 mg Dextrose/Sodium Chloride (D5-0.45ns) 1,000 mls @ 75 mls/hr IV .[id number] [facility] Stop: 02/28/18 17:16 Last Admin: 01/01/18 13:37 Dose: 75 mls/hr Azithromycin 250 mg/ Sodium (Chloride) 250 mls @ 250 mls/hr IV Q24H [facility] Stop: 03/02/18 15:59 Last Admin: 01/01/18 16:36 Dose: 250 mls/hr Lactobacillus Rhamnosus (Culturelle 15b) 1 each PO DAILY [facility] Stop: 03/04/18 08:59 Loratadine (Claritin) 10 mg PO DAILY [facility] Stop: 03/01/18 08:59 Last Admin: 01/02/18 10:26 Dose: 10 mg Magnesium Hydroxide (Milk Of Magnesia) 30 ml PO HS PRN PRN Reason: Constipation Stop: 02/28/18 16:40 Mirtazapine (Remeron) 15 mg PO HS [facility]; Protocol Stop: 03/01/18 20:59 Last Admin: 01/01/18 21:03 Dose: 15 mg Miscellaneous (Probiotic Screen) 1 ea MC PRN PRN PRN Reason: PROTOCOL Stop: 03/03/18 10:56 Olanzapine (Zyprexa) 10 mg PO TID [facility]; Protocol Stop: 03/01/18 08:59 Last Admin: 01/02/18 10:37 Dose: 10 mg Pantoprazole Sodium (Protonix) 40 mg PO DAILY [facility] Stop: 03/01/18 08:59 Last Admin: 01/02/18 10:26 Dose: 40 mg Psyllium Hydrophilic Mucilloid (Metamucil) 1 pkt PO BID [facility] Stop: 03/01/18 16:59 Last Admin: 01/02/18 10:26 Dose: 1 pkt Sodium Phosphate (Fleet Enema) 135 ml RC Q48H PRN PRN Reason: IF DULCOLAX INEFFECTIVE Stop: 03/01/18 08:22 General: no acute distress, well developed, well nourished HEENT: atraumatic, normocephalic, PERRLA Neck: supple, no thyromegaly, no lymphadenopathy Cardiovascular: S1S2, regular Lungs: clear to auscultation bilaterally, clear to percussion Abdomen: soft, no tender, no distended, no mass Extremities: no cyanosis, no clubbing, no edema Neurological: awake, alert, oriented - Procedures Procedures: Procedures Procedure Code Date EGD BIOPSY SINGLE/MULTIPLE 11080 07/16/17 EXCISION OF DUODENUM, ENDO, DIAGN [id number] 07/16/17 EXCISION OF STOMACH, ENDO, DIAGN [id number] 07/16/17 Infectious Disease Assmt/Plan - Problem List Patient Problems: All Active Problems WEAKNESS, WEIGHT LOSS, CXR INFILTRATE (Acute) - Assessment Assessment: 1. Bronchitis. 2. Dementia. 3. Depression. 4. Seizure disorder. - Plan Plan: cpm. Nutritional Asmnt/Malnutr-PDOC - Dietary Evaluation Malnutrition Findings (Please click <Entered> for more info): Nutritional Asmnt/Malnutrition Start: 12/31/17 14: 17 Text: Status: Complete Freq: Protocol: Document 12/31/17 14:17 DENISA (Rec: 12/31/17 14:24 DENISA MCGEE) Nutritional Asmnt/Malnutrition Patient General Information Nutritional Screening High Risk Consult Diagnosis pneumonia, sepsis Pertinent Medical Hx/Surgical Hx HTN, seizures, dementia, depression, schizophrenia Subjective Information Received diet consult for wt loss. Per SNF nursing staff, pt is eating well, but losing wt. Pt laying in bed at time of visit. Pt's confused and speech unclear; unable to communicate. Per RN, pt finished 60% of breakfast today, appeared good appetite. Current Diet Order/ Nutrition Support [facility] soft chopped; Ensure Enlive BID Pertinent Medications dulcolax, oscal w/ Vit D, D5-0 .45ns, colace, omega 3, MOM, protonix, piperacilin Pertinent Labs 12/30: Alb 3.9 12/31: Alb 3.3 Nutritional Hx/Data Height 1.73 m Height (Calculated Centimeters) 172.7 Current Weight (lbs) 73.936 kg Weight (Calculated Kilograms) 73.9 Weight (Calculated Grams) 34878.6 [place] Body Weight 154 lb Body Mass Index (BMI) 24.7 Weight Status Approriate GI Symptoms GI Symptoms None Last BM none noted Difficult in: None Food Allergies No Skin Integrity/Comment: doreen dobson 14 Estimated Nutritional Goals BEE in Kcals: Using Current wt Calories/Kcals/Kg 30-35 Kcals Calculated 9636-2768 Protein: Using Current wt Protein g/k.5 Protein Calculated 111g Fluid: ml 8711-7630 (1 ml/kcal) Nutritional Problem 1. Problem Problem increased energy and protein needs Etiology healing for pneumonia and sepsis Signs/Symptoms: estimated 3638-2257 kcals and 111 g protein for pt weighing 74 kg Malnutrition Alert Is there a minimum of two criteria No selected? Query Text:Check all the applicable criteria. A minimum of two criteria are recommended for diagnosis of either severe or non-severe malnutrition. Malnutrition Related to Morbid Obesity Malnutrition related to morbid obesity No Intervention/Recommendation Comments 1. Continue with [facility] soft chopped diet as order and Ensure Enlive BID, which will meet 100% of nutritional needs . Nurses to assist pt with meals and encourage eating. 2. Monitor PO intake, wt, labs and skin integrity 3. F/U as moderate risk in 3-5 days, 01/03-01/05; PO check 01/02 Expected Outcomes/Goals Expected Outcomes/Goals 1. PO intake at least 75% of all meals. 2. Wt stability, skin to remain intact, labs to approach normal limits Reviewed by Pari Owen RD
--- NOTE | 2018-01-02 13:24 | GI Progress Note ---
Subjective - Review of Systems Service Date: 01/02/18 Events since last encounter: No events Subjective: Fluctuation in eating Objective - Results Result Diagrams: 12/31/17 06:10 12/31/17 06:10 Recent Labs: Laboratory Last Values WBC 4.8 Th/cmm (4.8-10.8) 12/31/17 06:10 RBC 4.00 Mil/cmm (4.30-5.70) L 12/31/17 06:10 Hgb 13.1 gm/dL (12-16) 12/31/17 06:10 Hct 39.2 % (41.0-60) L 12/31/17 06:10 MCV 98.0 fl (80-99) 12/31/17 06:10 MCH 32.7 pg (26.0-30.0) H 12/31/17 06:10 MCHC Differential 33.4 pg (28.0-36.0) 12/31/17 06:10 RDW 13.0 % (11.5-20.0) 12/31/17 06:10 Plt Count 261 Th/cmm (150-400) 12/31/17 06:10 MPV 8.6 fl 12/31/17 06:10 Add Manual Diff YES 12/31/17 06:10 Neutrophils % 62.7 % (40.0-80.0) 12/30/17 12:15 Lymphocytes % 23.7 % (20.0-50.0) 12/30/17 12:15 Monocytes % 7.9 % (2.0-10.0) 12/30/17 12:15 Eosinophils % 5.5 % (0.0-5.0) H 12/30/17 12:15 Basophils % 0.2 % (0.0-2.0) 12/30/17 12:15 Neutrophils (Manual) 42 % (40-80) 12/31/17 06:10 Lymphocytes 43 % (20-50) 12/31/17 06:10 Monocytes 6 % (2-10) 12/31/17 06:10 Eosinophils 9 % (0-5) H 12/31/17 06:10 PT 11.7 SECONDS (9.5-11.5) H 12/31/17 06:10 INR 1.14 (0.5-1.4) 12/31/17 06:10 PTT (Actin FS) 24.6 SECONDS (26.0-38.0) L 12/30/17 12:15 D-Dimer 681 ng/mL (100-400) H 12/31/17 06:10 Sodium 141 mEq/L (136-145) 12/31/17 06:10 Potassium 3.6 mEq/L (3.5-5.1) 12/31/17 06:10 Chloride 107 mEq/L (98-107) 12/31/17 06:10 Carbon Dioxide 26.9 mEq/L (21.0-31.0) 12/31/17 06:10 Anion Gap 10.7 (7.0-16.0) 12/31/17 06:10 BUN 13 mg/dL (7-25) 12/31/17 06:10 Creatinine 0.8 mg/dL (0.7-1.3) 12/31/17 06:10 Est GFR ( Amer) > 60.0 ml/min (>90) 12/31/17 06:10 Est GFR (Non-Af Amer) > 60.0 ml/min 12/31/17 06:10 BUN/Creatinine Ratio 16.3 12/31/17 06:10 Glucose 77 mg/dL (70-105) 12/31/17 06:10 Whole Bld Lactic Acid 1.43 mmol/L (0.60-1.99) 12/30/17 12:15 Calcium 8.6 mg/dL (8.6-10.3) 12/31/17 06:10 Total Bilirubin 0.4 mg/dL (0.3-1.0) 12/31/17 06:10 AST 12 U/L (13-39) L 12/31/17 06:10 ALT 9 U/L (7-52) 12/31/17 06:10 Alkaline Phosphatase 38 U/L (34-104) 12/31/17 06:10 Creatine Kinase 50 U/L (30-223) 12/30/17 12:15 Troponin I 0.01 ng/mL (0.01-0.05) 12/30/17 12:15 Total Protein 6.4 gm/dL (6.0-8.3) 12/31/17 06:10 Albumin 3.3 gm/dL (4.2-5.5) L 12/31/17 06:10 Globulin 3.1 gm/dL 12/31/17 06:10 Albumin/Globulin Ratio 1.1 (1.0-1.8) 12/31/17 06:10 Triglycerides 84 mg/dL (<150) 12/31/17 06:10 Cholesterol 135 mg/dL (<200) 12/31/17 06:10 LDL Cholesterol Direct 83 mg/dL (75-193) 12/31/17 06:10 HDL Cholesterol 34 mg/dL (23-92) 12/31/17 06:10 Prostate Specific Ag 0.3 ng/mL (0.0-4.0) 12/31/17 06:10 TSH 1.80 uIU/ml (0.34-5.60) 12/31/17 06:10 Urine Source MIDSTREAM 12/30/17 12:15 Urine Color YELLOW 12/30/17 12:15 Urine Clarity CLEAR (CLEAR) 12/30/17 12:15 Urine pH 6.5 (4.6 - 8.0) 12/30/17 12:15 Ur Specific [place] 1.025 (1.005-1.030) 12/30/17 12:15 Urine Protein NEGATIVE mg/dL (NEGATIVE) 12/30/17 12:15 Urine Glucose (UA) NEGATIVE mg/dL (NEGATIVE) 12/30/17 12:15 Urine Ketones NEGATIVE mg/dL (NEGATIVE) 12/30/17 12:15 Urine Blood NEGATIVE (NEGATIVE) 12/30/17 12:15 Urine Nitrate NEGATIVE (NEGATIVE) 12/30/17 12:15 Urine Bilirubin NEGATIVE (NEGATIVE) 12/30/17 12:15 Urine Urobilinogen 0.2 E.U./dL (0.2 - 1.0) 12/30/17 12:15 Ur Leukocyte Esterase NEGATIVE (NEGATIVE) 12/30/17 12:15 Urine RBC 0-2 /hpf (0-5) H 12/30/17 12:15 Urine WBC 2-5 /hpf (0-5) 12/30/17 12:15 Ur Epithelial Cells FEW /lpf (FEW) 12/30/17 12:15 Urine Bacteria FEW /hpf (NONE SEEN) 12/30/17 12:15 Urine Mucus FEW /lpf (FEW) 12/30/17 12:15 Carbamazepine 6.1 ug/ml (4.0-12.0) 12/31/17 05:45 - Physical Exam Vitals and I&O: Vital Signs Temp 98.1 F 01/02/18 11:30 Pulse 63 01/02/18 11:30 Resp 18 01/02/18 11:30 BP 90/58 01/02/18 11:30 Pulse Ox 99 01/02/18 11:30 Intake & Output 01/01/18 01/02/18 01/02/18 18:59 06:59 18:59 Intake Total 1000 840 Balance 1000 840 Weight (lbs) 73.482 kg Intake: Intake, IV Amount 1000 D5-0.45NS 1,000 ml @ 75 1000 mls/hr IV .[id number] [facility] Rx #:[id number] Oral 840 Other: # Voids 4 Weight Source Bedscale Active Medications: Current Medications Acetaminophen (Tylenol Extra Strength) 1,000 mg PO Q4HR PRN PRN Reason: Pain (Moderate) Stop: 02/28/18 16:34 Last Admin: 01/01/18 02:24 Dose: 1,000 mg Acetaminophen (Tylenol) 650 mg PO Q4HR PRN PRN Reason: Mild Pain or Fever >101 Stop: 03/01/18 08:22 Albuterol/Ipratropium (Duoneb Neb) 3 ml HHN Q6HRT [facility] Stop: 03/01/18 12:59 Last Admin: 01/02/18 07:11 Dose: 3 ml Bisacodyl (Dulcolax 10 Mg Supp) 10 mg RC DAILY PRN PRN Reason: IF MOM INEFFECTIVE Stop: 03/01/18 08:22 Calcium/Vitamin D (Oscal W/Vitamin D) 1 tab PO DAILY [facility] Stop: 03/01/18 08:59 Last Admin: 01/02/18 10:26 Dose: 1 tab Carbamazepine (Tegretol) 200 mg PO BID [facility]; Protocol Stop: 02/28/18 16:59 Last Admin: 01/02/18 10:27 Dose: 200 mg Divalproex Sodium (Depakote Er) 750 mg PO BID [facility]; Protocol Stop: 03/01/18 08:59 Last Admin: 01/02/18 10:37 Dose: 750 mg Docusate Sodium (Colace) 250 mg PO BID [facility] Stop: 02/28/18 16:59 Last Admin: 01/02/18 10:27 Dose: 250 mg Fish Oil ([place] 3) 1,000 mg PO DAILY [facility] Stop: 03/01/18 08:59 Last Admin: 01/02/18 10:26 Dose: 1,000 mg Haloperidol (Haldol) 2.5 mg PO BID [facility]; Protocol Stop: 03/01/18 08:59 Last Admin: 01/02/18 10:27 Dose: 2.5 mg Dextrose/Sodium Chloride (D5-0.45ns) 1,000 mls @ 75 mls/hr IV .[id number] [facility] Stop: 02/28/18 17:16 Last Admin: 01/01/18 13:37 Dose: 75 mls/hr Azithromycin 250 mg/ Sodium (Chloride) 250 mls @ 250 mls/hr IV Q24H [facility] Stop: 03/02/18 15:59 Last Admin: 01/01/18 16:36 Dose: 250 mls/hr Lactobacillus Rhamnosus (Culturelle 15b) 1 each PO DAILY [facility] Stop: 03/04/18 08:59 Loratadine (Claritin) 10 mg PO DAILY [facility] Stop: 03/01/18 08:59 Last Admin: 01/02/18 10:26 Dose: 10 mg Magnesium Hydroxide (Milk Of Magnesia) 30 ml PO HS PRN PRN Reason: Constipation Stop: 02/28/18 16:40 Mirtazapine (Remeron) 15 mg PO HS [facility]; Protocol Stop: 03/01/18 20:59 Last Admin: 01/01/18 21:03 Dose: 15 mg Miscellaneous (Probiotic Screen) 1 ea MC PRN PRN PRN Reason: PROTOCOL Stop: 03/03/18 10:56 Olanzapine (Zyprexa) 10 mg PO TID [facility]; Protocol Stop: 03/01/18 08:59 Last Admin: 01/02/18 10:37 Dose: 10 mg Pantoprazole Sodium (Protonix) 40 mg PO DAILY [facility] Stop: 03/01/18 08:59 Last Admin: 01/02/18 10:26 Dose: 40 mg Psyllium Hydrophilic Mucilloid (Metamucil) 1 pkt PO BID [facility] Stop: 03/01/18 16:59 Last Admin: 01/02/18 10:26 Dose: 1 pkt Sodium Phosphate (Fleet Enema) 135 ml RC Q48H PRN PRN Reason: IF DULCOLAX INEFFECTIVE Stop: 03/01/18 08:22 General: Alert, Cooperative, No acute distress Cardiovascular: Regular rate, Normal S1, Normal S2 Lungs: Clear to auscultation Abdomen: Bowel sounds, Soft - Procedures Procedures: Procedures Procedure Code Date EGD BIOPSY SINGLE/MULTIPLE 47388 07/16/17 EXCISION OF DUODENUM, ENDO, DIAGN [id number] 07/16/17 EXCISION OF STOMACH, ENDO, DIAGN [id number] 07/16/17 Assessment/Plan - Problem List Patient Problems: All Active Problems WEAKNESS, WEIGHT LOSS, CXR INFILTRATE (Acute) - Assessment Assessment: 1. Weight Loss 2. Decrease oral intake - Plan Plan: 1. Weight Loss Could be due to decrease oral intake S./P EGD this year ( July) 2. Decrease oral intake Cont Remeron and supplements Nurse is to communicate with family and seek their help)
[2018-01-02] MEDS: Azithromycin 250 MG in Sodium Chloride 0.9% 250 ML IV SCH (16:10)
--- NOTE | 2018-01-02 17:14 | Consultation ---
DATE OF CONSULTATION: HEMATOLOGY ONCOLOGY CONSULTATION REFERRING PHYSICIAN: Dr. Bourne. REASON FOR CONSULTATION: Coagulopathy. HISTORY OF PRESENT ILLNESS: The patient is evaluated and admitted because of fever and cough, started on antibiotics and followed by the ID specialist. He was also found to have elevated D-dimer and poor intake, followed by the swimming pool service technician for calorie count and evaluation of swallowing. PAST MEDICAL HISTORY: Mentally challenged and history of CVA. PAST SURGICAL HISTORY: Brain surgery and hernia repair. SOCIAL HISTORY: Ex-smoker and IV drug use. MEDICATIONS: Reviewed. PHYSICAL EXAMINATION: GENERAL: The patient is awake, unable to communicate. VITAL SIGNS: Stable. HEENT: Atraumatic. NECK: No lymphadenopathy. CHEST: Equal air entry, scattered rhonchi. ABDOMEN: Soft. Scar of previous gastrostomy tube. EXTREMITIES: Wasted muscles. No edema. LABORATORY DATA: Reviewed. CBC unremarkable. D-dimer elevated. Chemistry panel and liver functions are okay. Chest x-ray: No acute infiltrate. CT scan of the abdomen from previous evaluation on 07/21/2017 reported no evidence of malignancy or neoplastic process. A left renal cyst and the right perinephric stranding. D-dimer is elevated to 681 with normal INR and PTT. ASSESSMENT: The elevated D-dimer is nonspecific. The patient does not have clear indication of a thrombosis; however, because of his bedridden status, I will obtain venous duplex study on both lower extremities to evaluate for possible venous thrombosis in the deep veins of lower extremities. I will start prophylactic dose Lovenox. There was no evidence of a neoplastic process and further evaluation of poor intake will be deferred to the swimming pool service technician. Thank you Dr. Bourne for the opportunity to participate in the care of this interesting case for you. JOB# [id number]
--- NOTE | 2018-01-02 21:15 | Internal Medicine Prog Note ---
Internal Medicine Subjective - Subjective Service Date: 01/02/18 Patient is:: awake Patient Complaints of:: congestion Per staff patient has:: no adverse event Internal Medicine Objective - Results Result Diagrams: 12/31/17 06:10 12/31/17 06:10 Recent Labs: Laboratory Last Values WBC 4.8 Th/cmm (4.8-10.8) 12/31/17 06:10 RBC 4.00 Mil/cmm (4.30-5.70) L 12/31/17 06:10 Hgb 13.1 gm/dL (12-16) 12/31/17 06:10 Hct 39.2 % (41.0-60) L 12/31/17 06:10 MCV 98.0 fl (80-99) 12/31/17 06:10 MCH 32.7 pg (26.0-30.0) H 12/31/17 06:10 MCHC Differential 33.4 pg (28.0-36.0) 12/31/17 06:10 RDW 13.0 % (11.5-20.0) 12/31/17 06:10 Plt Count 261 Th/cmm (150-400) 12/31/17 06:10 MPV 8.6 fl 12/31/17 06:10 Add Manual Diff YES 12/31/17 06:10 Neutrophils % 62.7 % (40.0-80.0) 12/30/17 12:15 Lymphocytes % 23.7 % (20.0-50.0) 12/30/17 12:15 Monocytes % 7.9 % (2.0-10.0) 12/30/17 12:15 Eosinophils % 5.5 % (0.0-5.0) H 12/30/17 12:15 Basophils % 0.2 % (0.0-2.0) 12/30/17 12:15 Neutrophils (Manual) 42 % (40-80) 12/31/17 06:10 Lymphocytes 43 % (20-50) 12/31/17 06:10 Monocytes 6 % (2-10) 12/31/17 06:10 Eosinophils 9 % (0-5) H 12/31/17 06:10 PT 11.7 SECONDS (9.5-11.5) H 12/31/17 06:10 INR 1.14 (0.5-1.4) 12/31/17 06:10 PTT (Actin FS) 24.6 SECONDS (26.0-38.0) L 12/30/17 12:15 D-Dimer 681 ng/mL (100-400) H 12/31/17 06:10 Sodium 141 mEq/L (136-145) 12/31/17 06:10 Potassium 3.6 mEq/L (3.5-5.1) 12/31/17 06:10 Chloride 107 mEq/L (98-107) 12/31/17 06:10 Carbon Dioxide 26.9 mEq/L (21.0-31.0) 12/31/17 06:10 Anion Gap 10.7 (7.0-16.0) 12/31/17 06:10 BUN 13 mg/dL (7-25) 12/31/17 06:10 Creatinine 0.8 mg/dL (0.7-1.3) 12/31/17 06:10 Est GFR ( Amer) > 60.0 ml/min (>90) 12/31/17 06:10 Est GFR (Non-Af Amer) > 60.0 ml/min 12/31/17 06:10 BUN/Creatinine Ratio 16.3 12/31/17 06:10 Glucose 77 mg/dL (70-105) 12/31/17 06:10 Whole Bld Lactic Acid 1.43 mmol/L (0.60-1.99) 12/30/17 12:15 Calcium 8.6 mg/dL (8.6-10.3) 12/31/17 06:10 Total Bilirubin 0.4 mg/dL (0.3-1.0) 12/31/17 06:10 AST 12 U/L (13-39) L 12/31/17 06:10 ALT 9 U/L (7-52) 12/31/17 06:10 Alkaline Phosphatase 38 U/L (34-104) 12/31/17 06:10 Creatine Kinase 50 U/L (30-223) 12/30/17 12:15 Troponin I 0.01 ng/mL (0.01-0.05) 12/30/17 12:15 Total Protein 6.4 gm/dL (6.0-8.3) 12/31/17 06:10 Albumin 3.3 gm/dL (4.2-5.5) L 12/31/17 06:10 Globulin 3.1 gm/dL 12/31/17 06:10 Albumin/Globulin Ratio 1.1 (1.0-1.8) 12/31/17 06:10 Triglycerides 84 mg/dL (<150) 12/31/17 06:10 Cholesterol 135 mg/dL (<200) 12/31/17 06:10 LDL Cholesterol Direct 83 mg/dL (75-193) 12/31/17 06:10 HDL Cholesterol 34 mg/dL (23-92) 12/31/17 06:10 Prostate Specific Ag 0.3 ng/mL (0.0-4.0) 12/31/17 06:10 TSH 1.80 uIU/ml (0.34-5.60) 12/31/17 06:10 Urine Source MIDSTREAM 12/30/17 12:15 Urine Color YELLOW 12/30/17 12:15 Urine Clarity CLEAR (CLEAR) 12/30/17 12:15 Urine pH 6.5 (4.6 - 8.0) 12/30/17 12:15 Ur Specific [place] 1.025 (1.005-1.030) 12/30/17 12:15 Urine Protein NEGATIVE mg/dL (NEGATIVE) 12/30/17 12:15 Urine Glucose (UA) NEGATIVE mg/dL (NEGATIVE) 12/30/17 12:15 Urine Ketones NEGATIVE mg/dL (NEGATIVE) 12/30/17 12:15 Urine Blood NEGATIVE (NEGATIVE) 12/30/17 12:15 Urine Nitrate NEGATIVE (NEGATIVE) 12/30/17 12:15 Urine Bilirubin NEGATIVE (NEGATIVE) 12/30/17 12:15 Urine Urobilinogen 0.2 E.U./dL (0.2 - 1.0) 12/30/17 12:15 Ur Leukocyte Esterase NEGATIVE (NEGATIVE) 12/30/17 12:15 Urine RBC 0-2 /hpf (0-5) H 12/30/17 12:15 Urine WBC 2-5 /hpf (0-5) 12/30/17 12:15 Ur Epithelial Cells FEW /lpf (FEW) 12/30/17 12:15 Urine Bacteria FEW /hpf (NONE SEEN) 12/30/17 12:15 Urine Mucus FEW /lpf (FEW) 12/30/17 12:15 Carbamazepine 6.1 ug/ml (4.0-12.0) 12/31/17 05:45 - Physical Exam Vitals and I&O: Vital Signs Temp 99.0 F 01/02/18 20:00 Pulse 85 01/02/18 20:00 Resp 18 01/02/18 20:00 BP 106/66 01/02/18 20:00 Pulse Ox 93 01/02/18 20:00 Intake & Output 01/02/18 01/02/18 01/03/18 06:59 18:59 06:59 Intake Total 840 360 Balance 840 360 Weight (lbs) 162 lb 162 lb Intake: Oral 840 360 Other: # Voids 4 3 # Bowel Movements 0 Weight Source Bedscale Bedscale Active Medications: Current Medications Acetaminophen (Tylenol Extra Strength) 1,000 mg PO Q4HR PRN PRN Reason: Pain (Moderate) Stop: 02/28/18 16:34 Last Admin: 01/01/18 02:24 Dose: 1,000 mg Acetaminophen (Tylenol) 650 mg PO Q4HR PRN PRN Reason: Mild Pain or Fever >101 Stop: 03/01/18 08:22 Albuterol/Ipratropium (Duoneb Neb) 3 ml HHN Q6HRT [facility] Stop: 03/01/18 12:59 Last Admin: 01/02/18 18:59 Dose: 3 ml Bisacodyl (Dulcolax 10 Mg Supp) 10 mg RC DAILY PRN PRN Reason: IF MOM INEFFECTIVE Stop: 03/01/18 08:22 Calcium/Vitamin D (Oscal W/Vitamin D) 1 tab PO DAILY [facility] Stop: 03/01/18 08:59 Last Admin: 01/02/18 10:26 Dose: 1 tab Carbamazepine (Tegretol) 200 mg PO BID [facility]; Protocol Stop: 02/28/18 16:59 Last Admin: 01/02/18 16:52 Dose: 200 mg Divalproex Sodium (Depakote Er) 750 mg PO BID [facility]; Protocol Stop: 03/01/18 08:59 Last Admin: 01/02/18 16:52 Dose: 750 mg Docusate Sodium (Colace) 250 mg PO BID [facility] Stop: 02/28/18 16:59 Last Admin: 01/02/18 16:52 Dose: 250 mg Enoxaparin Sodium (Lovenox) 40 mg SUBQ DAILY [facility] Stop: 03/04/18 08:59 Fish Oil ([place] 3) 1,000 mg PO DAILY [facility] Stop: 03/01/18 08:59 Last Admin: 01/02/18 10:26 Dose: 1,000 mg Haloperidol (Haldol) 2.5 mg PO BID [facility]; Protocol Stop: 03/01/18 08:59 Last Admin: 01/02/18 16:53 Dose: 2.5 mg Dextrose/Sodium Chloride (D5-0.45ns) 1,000 mls @ 75 mls/hr IV .[id number] [facility] Stop: 02/28/18 17:16 Last Admin: 01/01/18 13:37 Dose: 75 mls/hr Azithromycin 250 mg/ Sodium (Chloride) 250 mls @ 250 mls/hr IV Q24H [facility] Stop: 03/02/18 15:59 Last Admin: 01/02/18 16:10 Dose: 250 mls/hr Lactobacillus Rhamnosus (Culturelle 15b) 1 each PO DAILY [facility] Stop: 03/04/18 08:59 Loratadine (Claritin) 10 mg PO DAILY [facility] Stop: 03/01/18 08:59 Last Admin: 01/02/18 10:26 Dose: 10 mg Magnesium Hydroxide (Milk Of Magnesia) 30 ml PO HS PRN PRN Reason: Constipation Stop: 02/28/18 16:40 Mirtazapine (Remeron) 15 mg PO HS [facility]; Protocol Stop: 03/01/18 20:59 Last Admin: 01/01/18 21:03 Dose: 15 mg Miscellaneous (Probiotic Screen) 1 ea MC PRN PRN PRN Reason: PROTOCOL Stop: 03/03/18 10:56 Olanzapine (Zyprexa) 10 mg PO TID [facility]; Protocol Stop: 03/01/18 08:59 Last Admin: 01/02/18 16:33 Dose: 10 mg Pantoprazole Sodium (Protonix) 40 mg PO DAILY [facility] Stop: 03/01/18 08:59 Last Admin: 01/02/18 10:26 Dose: 40 mg Psyllium Hydrophilic Mucilloid (Metamucil) 1 pkt PO BID [facility] Stop: 03/01/18 16:59 Last Admin: 01/02/18 16:53 Dose: 1 pkt Sodium Phosphate (Fleet Enema) 135 ml RC Q48H PRN PRN Reason: IF DULCOLAX INEFFECTIVE Stop: 03/01/18 08:22 General: alert HEENT: NC/AT Neck: Supple Lungs: congested, no CTAB Abdomen: soft, non-tender Extremities: clear - Procedures Procedures: Procedures Procedure Code Date EGD BIOPSY SINGLE/MULTIPLE 63235 07/16/17 EXCISION OF DUODENUM, ENDO, DIAGN [id number] 07/16/17 EXCISION OF STOMACH, ENDO, DIAGN [id number] 07/16/17 Internal Medicine Assmt/Plan - Assessment Assessment: fever weakness cough congestion pneumonia sepsis psychosis - Plan Plan: continue ivabx as per id hhn as needed continue current plan of care Nutritional Asmnt/Malnutr-PDOC - Dietary Evaluation Malnutrition Findings (Please click <Entered> for more info): Nutritional Asmnt/Malnutrition Start: 12/31/17 14: 17 Text: Status: Complete Freq: Protocol: Document 12/31/17 14:17 DENISA (Rec: 12/31/17 14:24 DENISA MCGEE) Nutritional Asmnt/Malnutrition Patient General Information Nutritional Screening High Risk Consult Diagnosis pneumonia, sepsis Pertinent Medical Hx/Surgical Hx HTN, seizures, dementia, depression, schizophrenia Subjective Information Received diet consult for wt loss. Per SNF nursing staff, pt is eating well, but losing wt. Pt laying in bed at time of visit. Pt's confused and speech unclear; unable to communicate. Per RN, pt finished 60% of breakfast today, appeared good appetite. Current Diet Order/ Nutrition Support [facility] soft chopped; Ensure Enlive BID Pertinent Medications dulcolax, oscal w/ Vit D, D5-0 .45ns, colace, omega 3, MOM, protonix, piperacilin Pertinent Labs 12/30: Alb 3.9 12/31: Alb 3.3 Nutritional Hx/Data Height 5 ft 8 in Height (Calculated Centimeters) 172.7 Current Weight (lbs) 163 lb Weight (Calculated Kilograms) 73.9 Weight (Calculated Grams) 50415.6 [place] Body Weight 154 lb Body Mass Index (BMI) 24.7 Weight Status Approriate GI Symptoms GI Symptoms None Last BM none noted Difficult in: None Food Allergies No Skin Integrity/Comment: doreen dobson 14 Estimated Nutritional Goals BEE in Kcals: Using Current wt Calories/Kcals/Kg 30-35 Kcals Calculated 8736-1969 Protein: Using Current wt Protein g/k.5 Protein Calculated 111g Fluid: ml 4556-9634 (1 ml/kcal) Nutritional Problem 1. Problem Problem increased energy and protein needs Etiology healing for pneumonia and sepsis Signs/Symptoms: estimated 2251-8816 kcals and 111 g protein for pt weighing 74 kg Malnutrition Alert Is there a minimum of two criteria No selected? Query Text:Check all the applicable criteria. A minimum of two criteria are recommended for diagnosis of either severe or non-severe malnutrition. Malnutrition Related to Morbid Obesity Malnutrition related to morbid obesity No Intervention/Recommendation Comments 1. Continue with [facility] soft chopped diet as order and Ensure Enlive BID, which will meet 100% of nutritional needs . Nurses to assist pt with meals and encourage eating. 2. Monitor PO intake, wt, labs and skin integrity 3. F/U as moderate risk in 3-5 days, 01/03-01/05; PO check 01/02 Expected Outcomes/Goals Expected Outcomes/Goals 1. PO intake at least 75% of all meals. 2. Wt stability, skin to remain intact, labs to approach normal limits Reviewed by Pari Owen RD
[2018-01-03] MEDS: Albuterol/Ipratropium Neb 3 ML AERS HHN SCH ×4 (00:34→19:17)
[2018-01-03] MEDS: D5-0.45NS 1,000 ML IV SCH ×2 (05:23→22:23)
--- NOTE | 2018-01-03 08:36 | GI Progress Note ---
Subjective - Review of Systems Subjective: NO EVENTS ATE ALL OF BREAKFAST PER STAFF Objective - Results Result Diagrams: 12/31/17 06:10 12/31/17 06:10 Recent Labs: Laboratory Last Values WBC 4.8 Th/cmm (4.8-10.8) 12/31/17 06:10 RBC 4.00 Mil/cmm (4.30-5.70) L 12/31/17 06:10 Hgb 13.1 gm/dL (12-16) 12/31/17 06:10 Hct 39.2 % (41.0-60) L 12/31/17 06:10 MCV 98.0 fl (80-99) 12/31/17 06:10 MCH 32.7 pg (26.0-30.0) H 12/31/17 06:10 MCHC Differential 33.4 pg (28.0-36.0) 12/31/17 06:10 RDW 13.0 % (11.5-20.0) 12/31/17 06:10 Plt Count 261 Th/cmm (150-400) 12/31/17 06:10 MPV 8.6 fl 12/31/17 06:10 Add Manual Diff YES 12/31/17 06:10 Neutrophils % 62.7 % (40.0-80.0) 12/30/17 12:15 Lymphocytes % 23.7 % (20.0-50.0) 12/30/17 12:15 Monocytes % 7.9 % (2.0-10.0) 12/30/17 12:15 Eosinophils % 5.5 % (0.0-5.0) H 12/30/17 12:15 Basophils % 0.2 % (0.0-2.0) 12/30/17 12:15 Neutrophils (Manual) 42 % (40-80) 12/31/17 06:10 Lymphocytes 43 % (20-50) 12/31/17 06:10 Monocytes 6 % (2-10) 12/31/17 06:10 Eosinophils 9 % (0-5) H 12/31/17 06:10 PT 11.7 SECONDS (9.5-11.5) H 12/31/17 06:10 INR 1.14 (0.5-1.4) 12/31/17 06:10 PTT (Actin FS) 24.6 SECONDS (26.0-38.0) L 12/30/17 12:15 D-Dimer 681 ng/mL (100-400) H 12/31/17 06:10 Sodium 141 mEq/L (136-145) 12/31/17 06:10 Potassium 3.6 mEq/L (3.5-5.1) 12/31/17 06:10 Chloride 107 mEq/L (98-107) 12/31/17 06:10 Carbon Dioxide 26.9 mEq/L (21.0-31.0) 12/31/17 06:10 Anion Gap 10.7 (7.0-16.0) 12/31/17 06:10 BUN 13 mg/dL (7-25) 12/31/17 06:10 Creatinine 0.8 mg/dL (0.7-1.3) 12/31/17 06:10 Est GFR ( Amer) > 60.0 ml/min (>90) 12/31/17 06:10 Est GFR (Non-Af Amer) > 60.0 ml/min 12/31/17 06:10 BUN/Creatinine Ratio 16.3 12/31/17 06:10 Glucose 77 mg/dL (70-105) 12/31/17 06:10 Whole Bld Lactic Acid 1.43 mmol/L (0.60-1.99) 12/30/17 12:15 Calcium 8.6 mg/dL (8.6-10.3) 12/31/17 06:10 Total Bilirubin 0.4 mg/dL (0.3-1.0) 12/31/17 06:10 AST 12 U/L (13-39) L 12/31/17 06:10 ALT 9 U/L (7-52) 12/31/17 06:10 Alkaline Phosphatase 38 U/L (34-104) 12/31/17 06:10 Creatine Kinase 50 U/L (30-223) 12/30/17 12:15 Troponin I 0.01 ng/mL (0.01-0.05) 12/30/17 12:15 Total Protein 6.4 gm/dL (6.0-8.3) 12/31/17 06:10 Albumin 3.3 gm/dL (4.2-5.5) L 12/31/17 06:10 Globulin 3.1 gm/dL 12/31/17 06:10 Albumin/Globulin Ratio 1.1 (1.0-1.8) 12/31/17 06:10 Triglycerides 84 mg/dL (<150) 12/31/17 06:10 Cholesterol 135 mg/dL (<200) 12/31/17 06:10 LDL Cholesterol Direct 83 mg/dL (75-193) 12/31/17 06:10 HDL Cholesterol 34 mg/dL (23-92) 12/31/17 06:10 Prostate Specific Ag 0.3 ng/mL (0.0-4.0) 12/31/17 06:10 TSH 1.80 uIU/ml (0.34-5.60) 12/31/17 06:10 Urine Source MIDSTREAM 12/30/17 12:15 Urine Color YELLOW 12/30/17 12:15 Urine Clarity CLEAR (CLEAR) 12/30/17 12:15 Urine pH 6.5 (4.6 - 8.0) 12/30/17 12:15 Ur Specific [place] 1.025 (1.005-1.030) 12/30/17 12:15 Urine Protein NEGATIVE mg/dL (NEGATIVE) 12/30/17 12:15 Urine Glucose (UA) NEGATIVE mg/dL (NEGATIVE) 12/30/17 12:15 Urine Ketones NEGATIVE mg/dL (NEGATIVE) 12/30/17 12:15 Urine Blood NEGATIVE (NEGATIVE) 12/30/17 12:15 Urine Nitrate NEGATIVE (NEGATIVE) 12/30/17 12:15 Urine Bilirubin NEGATIVE (NEGATIVE) 12/30/17 12:15 Urine Urobilinogen 0.2 E.U./dL (0.2 - 1.0) 12/30/17 12:15 Ur Leukocyte Esterase NEGATIVE (NEGATIVE) 12/30/17 12:15 Urine RBC 0-2 /hpf (0-5) H 12/30/17 12:15 Urine WBC 2-5 /hpf (0-5) 12/30/17 12:15 Ur Epithelial Cells FEW /lpf (FEW) 12/30/17 12:15 Urine Bacteria FEW /hpf (NONE SEEN) 12/30/17 12:15 Urine Mucus FEW /lpf (FEW) 12/30/17 12:15 Carbamazepine 6.1 ug/ml (4.0-12.0) 12/31/17 05:45 - Physical Exam Vitals and I&O: Vital Signs Temp 98.1 F 01/03/18 07:48 Pulse 67 01/03/18 07:48 Resp 18 01/03/18 07:48 BP 93/63 01/03/18 07:48 Pulse Ox 96 01/03/18 07:48 Intake & Output 01/02/18 01/03/18 01/03/18 18:59 06:59 18:59 Intake Total 410 Balance 410 Weight (lbs) 69.853 kg Intake: Oral 410 Other: # Voids 2 # Bowel Movements 0 Weight Source Bedscale Active Medications: Current Medications Acetaminophen (Tylenol Extra Strength) 1,000 mg PO Q4HR PRN PRN Reason: Pain (Moderate) Stop: 02/28/18 16:34 Last Admin: 01/01/18 02:24 Dose: 1,000 mg Acetaminophen (Tylenol) 650 mg PO Q4HR PRN PRN Reason: Mild Pain or Fever >101 Stop: 03/01/18 08:22 Albuterol/Ipratropium (Duoneb Neb) 3 ml HHN Q6HRT [facility] Stop: 03/01/18 12:59 Last Admin: 01/03/18 07:25 Dose: 3 ml Bisacodyl (Dulcolax 10 Mg Supp) 10 mg RC DAILY PRN PRN Reason: IF MOM INEFFECTIVE Stop: 03/01/18 08:22 Calcium/Vitamin D (Oscal W/Vitamin D) 1 tab PO DAILY [facility] Stop: 03/01/18 08:59 Last Admin: 01/02/18 10:26 Dose: 1 tab Carbamazepine (Tegretol) 200 mg PO BID [facility]; Protocol Stop: 02/28/18 16:59 Last Admin: 01/02/18 16:52 Dose: 200 mg Divalproex Sodium (Depakote Er) 750 mg PO BID [facility]; Protocol Stop: 03/01/18 08:59 Last Admin: 01/02/18 16:52 Dose: 750 mg Docusate Sodium (Colace) 250 mg PO BID [facility] Stop: 02/28/18 16:59 Last Admin: 01/02/18 16:52 Dose: 250 mg Enoxaparin Sodium (Lovenox) 40 mg SUBQ DAILY [facility] Stop: 03/04/18 08:59 Fish Oil ([place] 3) 1,000 mg PO DAILY [facility] Stop: 03/01/18 08:59 Last Admin: 01/02/18 10:26 Dose: 1,000 mg Haloperidol (Haldol) 2.5 mg PO BID [facility]; Protocol Stop: 03/01/18 08:59 Last Admin: 01/02/18 16:53 Dose: 2.5 mg Dextrose/Sodium Chloride (D5-0.45ns) 1,000 mls @ 75 mls/hr IV .[id number] [facility] Stop: 02/28/18 17:16 Last Admin: 01/03/18 05:23 Dose: 75 mls/hr Azithromycin 250 mg/ Sodium (Chloride) 250 mls @ 250 mls/hr IV Q24H [facility] Stop: 03/02/18 15:59 Last Admin: 01/02/18 16:10 Dose: 250 mls/hr Lactobacillus Rhamnosus (Culturelle 15b) 1 each PO DAILY [facility] Stop: 03/04/18 08:59 Loratadine (Claritin) 10 mg PO DAILY [facility] Stop: 03/01/18 08:59 Last Admin: 01/02/18 10:26 Dose: 10 mg Magnesium Hydroxide (Milk Of Magnesia) 30 ml PO HS PRN PRN Reason: Constipation Stop: 02/28/18 16:40 Mirtazapine (Remeron) 15 mg PO HS [facility]; Protocol Stop: 03/01/18 20:59 Last Admin: 01/02/18 21:18 Dose: 15 mg Miscellaneous (Probiotic Screen) 1 ea MC PRN PRN PRN Reason: PROTOCOL Stop: 03/03/18 10:56 Olanzapine (Zyprexa) 10 mg PO TID [facility]; Protocol Stop: 03/01/18 08:59 Last Admin: 01/02/18 21:17 Dose: 10 mg Pantoprazole Sodium (Protonix) 40 mg PO DAILY [facility] Stop: 03/01/18 08:59 Last Admin: 01/02/18 10:26 Dose: 40 mg Psyllium Hydrophilic Mucilloid (Metamucil) 1 pkt PO BID [facility] Stop: 03/01/18 16:59 Last Admin: 01/02/18 16:53 Dose: 1 pkt Sodium Phosphate (Fleet Enema) 135 ml RC Q48H PRN PRN Reason: IF DULCOLAX INEFFECTIVE Stop: 03/01/18 08:22 General: Alert, Cooperative, No acute distress Cardiovascular: Regular rate, Normal S1, Normal S2 Lungs: Clear to auscultation Abdomen: Bowel sounds, Soft - Procedures Procedures: Procedures Procedure Code Date EGD BIOPSY SINGLE/MULTIPLE 37433 07/16/17 EXCISION OF DUODENUM, ENDO, DIAGN [id number] 07/16/17 EXCISION OF STOMACH, ENDO, DIAGN [id number] 07/16/17 Assessment/Plan - Problem List Patient Problems: All Active Problems WEAKNESS, WEIGHT LOSS, CXR INFILTRATE (Acute) - Assessment Assessment: 57 YO MALE WITH ANOREXIA HX OF CVA IMPROVING AND EATING WELL 1.CONT SUPP CARE
[2018-01-03] MEDS: Calcium Carb/Vit D 500 mg/200 U Tab PO SCH (08:59)
[2018-01-03] MEDS: Multivitamin w/ Minerals Tab PO SCH (08:59)
[2018-01-03] MEDS: Lactobacillus Rhamnosus GG 15 Billion CFU CAP.SPRINK PO SCH (09:00)
[2018-01-03] MEDS: Fish Oil 1,000 MG SGL PO SCH (09:00)
[2018-01-03] MEDS: Pantoprazole 40 mg/Packet PO SCH (09:00)
[2018-01-03] MEDS: Enoxaparin 40 mg/0.4 mL 0.4mL Syr SUBQ SCH (09:01)
--- NOTE | 2018-01-03 14:11 | General Progress Note ---
Subjective - Review of Systems Service Date: 01/03/18 Objective - Results Result Diagrams: 12/31/17 06:10 12/31/17 06:10 Recent Labs: Laboratory Last Values WBC 4.8 Th/cmm (4.8-10.8) 12/31/17 06:10 RBC 4.00 Mil/cmm (4.30-5.70) L 12/31/17 06:10 Hgb 13.1 gm/dL (12-16) 12/31/17 06:10 Hct 39.2 % (41.0-60) L 12/31/17 06:10 MCV 98.0 fl (80-99) 12/31/17 06:10 MCH 32.7 pg (26.0-30.0) H 12/31/17 06:10 MCHC Differential 33.4 pg (28.0-36.0) 12/31/17 06:10 RDW 13.0 % (11.5-20.0) 12/31/17 06:10 Plt Count 261 Th/cmm (150-400) 12/31/17 06:10 MPV 8.6 fl 12/31/17 06:10 Add Manual Diff YES 12/31/17 06:10 Neutrophils % 62.7 % (40.0-80.0) 12/30/17 12:15 Lymphocytes % 23.7 % (20.0-50.0) 12/30/17 12:15 Monocytes % 7.9 % (2.0-10.0) 12/30/17 12:15 Eosinophils % 5.5 % (0.0-5.0) H 12/30/17 12:15 Basophils % 0.2 % (0.0-2.0) 12/30/17 12:15 Neutrophils (Manual) 42 % (40-80) 12/31/17 06:10 Lymphocytes 43 % (20-50) 12/31/17 06:10 Monocytes 6 % (2-10) 12/31/17 06:10 Eosinophils 9 % (0-5) H 12/31/17 06:10 PT 11.7 SECONDS (9.5-11.5) H 12/31/17 06:10 INR 1.14 (0.5-1.4) 12/31/17 06:10 PTT (Actin FS) 24.6 SECONDS (26.0-38.0) L 12/30/17 12:15 D-Dimer 681 ng/mL (100-400) H 12/31/17 06:10 Sodium 141 mEq/L (136-145) 12/31/17 06:10 Potassium 3.6 mEq/L (3.5-5.1) 12/31/17 06:10 Chloride 107 mEq/L (98-107) 12/31/17 06:10 Carbon Dioxide 26.9 mEq/L (21.0-31.0) 12/31/17 06:10 Anion Gap 10.7 (7.0-16.0) 12/31/17 06:10 BUN 13 mg/dL (7-25) 12/31/17 06:10 Creatinine 0.8 mg/dL (0.7-1.3) 12/31/17 06:10 Est GFR ( Amer) > 60.0 ml/min (>90) 12/31/17 06:10 Est GFR (Non-Af Amer) > 60.0 ml/min 12/31/17 06:10 BUN/Creatinine Ratio 16.3 12/31/17 06:10 Glucose 77 mg/dL (70-105) 12/31/17 06:10 Whole Bld Lactic Acid 1.43 mmol/L (0.60-1.99) 12/30/17 12:15 Calcium 8.6 mg/dL (8.6-10.3) 12/31/17 06:10 Total Bilirubin 0.4 mg/dL (0.3-1.0) 12/31/17 06:10 AST 12 U/L (13-39) L 12/31/17 06:10 ALT 9 U/L (7-52) 12/31/17 06:10 Alkaline Phosphatase 38 U/L (34-104) 12/31/17 06:10 Creatine Kinase 50 U/L (30-223) 12/30/17 12:15 Troponin I 0.01 ng/mL (0.01-0.05) 12/30/17 12:15 Total Protein 6.4 gm/dL (6.0-8.3) 12/31/17 06:10 Albumin 3.3 gm/dL (4.2-5.5) L 10/10/18 06:10 Globulin 3.1 gm/dL 12/31/17 06:10 Albumin/Globulin Ratio 1.1 (1.0-1.8) 12/31/17 06:10 Triglycerides 84 mg/dL (<150) 12/31/17 06:10 Cholesterol 135 mg/dL (<200) 12/31/17 06:10 LDL Cholesterol Direct 83 mg/dL (75-193) 12/31/17 06:10 HDL Cholesterol 34 mg/dL (23-92) 12/31/17 06:10 Prostate Specific Ag 0.3 ng/mL (0.0-4.0) 12/31/17 06:10 TSH 1.80 uIU/ml (0.34-5.60) 12/31/17 06:10 Urine Source MIDSTREAM 12/30/17 12:15 Urine Color YELLOW 12/30/17 12:15 Urine Clarity CLEAR (CLEAR) 12/30/17 12:15 Urine pH 6.5 (4.6 - 8.0) 12/30/17 12:15 Ur Specific [place] 1.025 (1.005-1.030) 12/30/17 12:15 Urine Protein NEGATIVE mg/dL (NEGATIVE) 12/30/17 12:15 Urine Glucose (UA) NEGATIVE mg/dL (NEGATIVE) 12/30/17 12:15 Urine Ketones NEGATIVE mg/dL (NEGATIVE) 12/30/17 12:15 Urine Blood NEGATIVE (NEGATIVE) 12/30/17 12:15 Urine Nitrate NEGATIVE (NEGATIVE) 12/30/17 12:15 Urine Bilirubin NEGATIVE (NEGATIVE) 12/30/17 12:15 Urine Urobilinogen 0.2 E.U./dL (0.2 - 1.0) 12/30/17 12:15 Ur Leukocyte Esterase NEGATIVE (NEGATIVE) 12/30/17 12:15 Urine RBC 0-2 /hpf (0-5) H 12/30/17 12:15 Urine WBC 2-5 /hpf (0-5) 12/30/17 12:15 Ur Epithelial Cells FEW /lpf (FEW) 12/30/17 12:15 Urine Bacteria FEW /hpf (NONE SEEN) 12/30/17 12:15 Urine Mucus FEW /lpf (FEW) 12/30/17 12:15 Carbamazepine 6.1 ug/ml (4.0-12.0) 12/31/17 05:45 - Physical Exam Vitals and I&O: Vital Signs Temp 98.3 F 01/03/18 11:39 Pulse 64 01/03/18 13:34 Resp 20 01/03/18 13:34 BP 97/61 01/03/18 11:39 Pulse Ox 98 01/03/18 13:34 Intake & Output 01/02/18 01/03/18 01/03/18 18:59 06:59 18:59 Intake Total 410 Balance 410 Weight (lbs) 69.853 kg Intake: Oral 410 Other: # Voids 2 # Bowel Movements 0 Weight Source Bedscale Active Medications: Current Medications Acetaminophen (Tylenol Extra Strength) 1,000 mg PO Q4HR PRN PRN Reason: Pain (Moderate) Stop: 02/28/18 16:34 Last Admin: 01/01/18 02:24 Dose: 1,000 mg Acetaminophen (Tylenol) 650 mg PO Q4HR PRN PRN Reason: Mild Pain or Fever >101 Stop: 03/01/18 08:22 Albuterol/Ipratropium (Duoneb Neb) 3 ml HHN Q6HRT [facility] Stop: 03/01/18 12:59 Last Admin: 01/03/18 13:34 Dose: 3 ml Bisacodyl (Dulcolax 10 Mg Supp) 10 mg RC DAILY PRN PRN Reason: IF MOM INEFFECTIVE Stop: 03/01/18 08:22 Calcium/Vitamin D (Oscal W/Vitamin D) 1 tab PO DAILY [facility] Stop: 03/01/18 08:59 Last Admin: 01/03/18 08:59 Dose: 1 tab Carbamazepine (Tegretol) 200 mg PO BID [facility]; Protocol Stop: 02/28/18 16:59 Last Admin: 01/03/18 08:59 Dose: 200 mg Divalproex Sodium (Depakote Er) 750 mg PO BID [facility]; Protocol Stop: 03/01/18 08:59 Last Admin: 01/03/18 08:59 Dose: 750 mg Docusate Sodium (Colace) 250 mg PO BID [facility] Stop: 02/28/18 16:59 Last Admin: 01/03/18 08:59 Dose: 250 mg Enoxaparin Sodium (Lovenox) 40 mg SUBQ DAILY [facility] Stop: 03/04/18 08:59 Last Admin: 01/03/18 09:01 Dose: 40 mg Fish Oil ([place] 3) 1,000 mg PO DAILY [facility] Stop: 03/01/18 08:59 Last Admin: 01/03/18 09:00 Dose: 1,000 mg Haloperidol (Haldol) 2.5 mg PO BID [facility]; Protocol Stop: 03/01/18 08:59 Last Admin: 01/03/18 08:59 Dose: 2.5 mg Dextrose/Sodium Chloride (D5-0.45ns) 1,000 mls @ 75 mls/hr IV .[id number] [facility] Stop: 02/28/18 17:16 Last Admin: 01/03/18 05:23 Dose: 75 mls/hr Azithromycin 250 mg/ Sodium (Chloride) 250 mls @ 250 mls/hr IV Q24H [facility] Stop: 03/02/18 15:59 Last Admin: 01/02/18 16:10 Dose: 250 mls/hr Lactobacillus Rhamnosus (Culturelle 15b) 1 each PO DAILY [facility] Stop: 03/04/18 08:59 Last Admin: 01/03/18 09:00 Dose: 1 each Loratadine (Claritin) 10 mg PO DAILY [facility] Stop: 03/01/18 08:59 Last Admin: 01/03/18 08:59 Dose: 10 mg Magnesium Hydroxide (Milk Of Magnesia) 30 ml PO HS PRN PRN Reason: Constipation Stop: 02/28/18 16:40 Mirtazapine (Remeron) 15 mg PO HS [facility]; Protocol Stop: 03/01/18 20:59 Last Admin: 01/02/18 21:18 Dose: 15 mg Miscellaneous (Probiotic Screen) 1 ea MC PRN PRN PRN Reason: PROTOCOL Stop: 03/03/18 10:56 Olanzapine (Zyprexa) 10 mg PO TID [facility]; Protocol Stop: 03/01/18 08:59 Last Admin: 01/03/18 08:59 Dose: 10 mg Pantoprazole Sodium (Protonix) 40 mg PO DAILY [facility] Stop: 03/01/18 08:59 Last Admin: 01/03/18 09:00 Dose: 40 mg Psyllium Hydrophilic Mucilloid (Metamucil) 1 pkt PO BID [facility] Stop: 03/01/18 16:59 Last Admin: 01/03/18 09:00 Dose: 1 pkt Sodium Phosphate (Fleet Enema) 135 ml RC Q48H PRN PRN Reason: IF DULCOLAX INEFFECTIVE Stop: 03/01/18 08:22 General: Alert, Cooperative, No acute distress Cardiovascular: Regular rate, Normal S1, Normal S2 Lungs: Clear to auscultation Abdomen: Bowel sounds, Soft - Procedures Procedures: Procedures Procedure Code Date EGD BIOPSY SINGLE/MULTIPLE 89342 07/16/17 EXCISION OF DUODENUM, ENDO, DIAGN [id number] 07/16/17 EXCISION OF STOMACH, ENDO, DIAGN [id number] 07/16/17 Assessment/Plan - Problem List Patient Problems: All Active Problems WEAKNESS, WEIGHT LOSS, CXR INFILTRATE (Acute) - Assessment Assessment: The elevated D-dimer is nonspecific. The patient does not have clear indication of a thrombosis; however, because of his bedridden status, I will obtain venous duplex study on both lower extremities to evaluate for possible venous thrombosis in the deep veins of lower extremities. I will start prophylactic dose Lovenox. There was no evidence of a neoplastic process and further evaluation of poor intake will be deferred to the mixer tender. Nutritional Asmnt/Malnutr-PDOC - Dietary Evaluation Malnutrition Findings (Please click <Entered> for more info): Nutritional Asmnt/Malnutrition Start: 12/31/17 14: 17 Text: Status: Complete Freq: Protocol: Document 12/31/17 14:17 DENISA (Rec: 12/31/17 14:24 DENISA MCGEE) Nutritional Asmnt/Malnutrition Patient General Information Nutritional Screening High Risk Consult Diagnosis pneumonia, sepsis Pertinent Medical Hx/Surgical Hx HTN, seizures, dementia, depression, schizophrenia Subjective Information Received diet consult for wt loss. Per SNF nursing staff, pt is eating well, but losing wt. Pt laying in bed at time of visit. Pt's confused and speech unclear; unable to communicate. Per RN, pt finished 60% of breakfast today, appeared good appetite. Current Diet Order/ Nutrition Support [facility] soft chopped; Ensure Enlive BID Pertinent Medications dulcolax, oscal w/ Vit D, D5-0 .45ns, colace, omega 3, MOM, protonix, piperacilin Pertinent Labs 12/30: Alb 3.9 12/31: Alb 3.3 Nutritional Hx/Data Height 1.73 m Height (Calculated Centimeters) 172.7 Current Weight (lbs) 73.936 kg Weight (Calculated Kilograms) 73.9 Weight (Calculated Grams) 22995.6 [place] Body Weight 154 lb Body Mass Index (BMI) 24.7 Weight Status Approriate GI Symptoms GI Symptoms None Last BM none noted Difficult in: None Food Allergies No Skin Integrity/Comment: doreen dobson Estimated Nutritional Goals BEE in Kcals: Using Current wt Calories/Kcals/Kg 30-35 Kcals Calculated 0063-6971 Protein: Using Current wt Protein g/k.5 Protein Calculated 111g Fluid: ml 1442-1833 (1 ml/kcal) Nutritional Problem 1. Problem Problem increased energy and protein needs Etiology healing for pneumonia and sepsis Signs/Symptoms: estimated 3331-9369 kcals and 111 g protein for pt weighing 74 kg Malnutrition Alert Is there a minimum of two criteria No selected? Query Text:Check all the applicable criteria. A minimum of two criteria are recommended for diagnosis of either severe or non-severe malnutrition. Malnutrition Related to Morbid Obesity Malnutrition related to morbid obesity No Intervention/Recommendation Comments 1. Continue with [facility] soft chopped diet as order and Ensure Enlive BID, which will meet 100% of nutritional needs . Nurses to assist pt with meals and encourage eating. 2. Monitor PO intake, wt, labs and skin integrity 3. F/U as moderate risk in 3-5 days, 01/03-01/05; PO check 01/02 Expected Outcomes/Goals Expected Outcomes/Goals 1. PO intake at least 75% of all meals. 2. Wt stability, skin to remain intact, labs to approach normal limits Reviewed by Pari Owen RD
[2018-01-03] MEDS: Azithromycin 250 MG in Sodium Chloride 0.9% 250 ML IV SCH (15:41)
--- NOTE | 2018-01-04 00:16 | Progress Notes ---
DATE: 01/03/2018 SUBJECTIVE: The patient was seen in his room. The patient is asleep, but easily arousable. The patient appears to be with episodes of congestion, otherwise the patient appears to be in no acute distress. OBJECTIVE: VITAL SIGNS: Temperature 98.4, heart rate of 67, blood pressure 93/63, respirations of 18, and 96% on room air. HEENT: Head is atraumatic and normocephalic. Eyes: Bilateral conjunctivae are clear. Bilateral pupils are equally round and reactive. NECK: Supple. No JVD. CARDIOVASCULAR: S1 and S2, without murmur. PULMONARY: Clear to auscultation. GASTROINTESTINAL: Soft and nontender without guarding. Positive bowel sounds. MUSCULOSKELETAL: No clubbing. No cyanosis noted. ASSESSMENT: 1. Pneumonia. 2. Psychosis. 3. Anorexia. 4. History of cerebrovascular accident. PLAN: We will continue current treatment. We are also going to continue to monitor the patient's intake. Treatment plans were discussed with the patient's nurse. Treatment plans were discussed with Dr. Bourne. JOB# [id number]
[2018-01-04] MEDS: Albuterol/Ipratropium Neb 3 ML AERS HHN SCH ×4 (01:11→19:54)
--- NOTE | 2018-01-04 02:12 | Progress Notes ---
DATE: 01/03/2018 SUMMARY: Case was discussed with staff of the patient and reviewed records. The patient has already been seen by Dr. Oropeza. This is a 57-year-old male who was admitted because of fever for 3 days as well as cough and congestion, generalized weakness, anxious. He has been questionably depressed, has been in septic shock, and sedated. He does not want to answer questions. Today, he continues to be isolating, continues to be somewhat confused. Apparently, he did not sleep well last night. When I asked him, he was unable to answer me. He has been on Depakote, Tegretol, and also Haldol, and he is also on Remeron which helps with sleep. So, the patient apparently is on many medications that could help him with sleep and he is on a good dose of Zyprexa 10 mg 3 times a day. So, I would recommend to continue the same medications. I am questioning whether this patient is taking his medications or not, I will discuss with the staff to make sure the patient does take his medications and if he continues to lack sleep, then we need to adjust the medications. Thank you very much for allowing me to participate in the care of this most interesting gentleman. JOB# [id number]
--- NOTE | 2018-01-04 08:17 | GI Progress Note ---
Subjective - Review of Systems Subjective: NO EVENTS EATING BREAKFAST Objective - Results Result Diagrams: 12/31/17 06:10 12/31/17 06:10 Recent Labs: Laboratory Last Values WBC 4.8 Th/cmm (4.8-10.8) 12/31/17 06:10 RBC 4.00 Mil/cmm (4.30-5.70) L 12/31/17 06:10 Hgb 13.1 gm/dL (12-16) 12/31/17 06:10 Hct 39.2 % (41.0-60) L 12/31/17 06:10 MCV 98.0 fl (80-99) 12/31/17 06:10 MCH 32.7 pg (26.0-30.0) H 12/31/17 06:10 MCHC Differential 33.4 pg (28.0-36.0) 12/31/17 06:10 RDW 13.0 % (11.5-20.0) 12/31/17 06:10 Plt Count 261 Th/cmm (150-400) 12/31/17 06:10 MPV 8.6 fl 12/31/17 06:10 Add Manual Diff YES 12/31/17 06:10 Neutrophils % 62.7 % (40.0-80.0) 12/30/17 12:15 Lymphocytes % 23.7 % (20.0-50.0) 12/30/17 12:15 Monocytes % 7.9 % (2.0-10.0) 12/30/17 12:15 Eosinophils % 5.5 % (0.0-5.0) H 12/30/17 12:15 Basophils % 0.2 % (0.0-2.0) 12/30/17 12:15 Neutrophils (Manual) 42 % (40-80) 12/31/17 06:10 Lymphocytes 43 % (20-50) 12/31/17 06:10 Monocytes 6 % (2-10) 12/31/17 06:10 Eosinophils 9 % (0-5) H 12/31/17 06:10 PT 11.7 SECONDS (9.5-11.5) H 12/31/17 06:10 INR 1.14 (0.5-1.4) 12/31/17 06:10 PTT (Actin FS) 24.6 SECONDS (26.0-38.0) L 12/30/17 12:15 D-Dimer 681 ng/mL (100-400) H 12/31/17 06:10 Sodium 141 mEq/L (136-145) 12/31/17 06:10 Potassium 3.6 mEq/L (3.5-5.1) 12/31/17 06:10 Chloride 107 mEq/L (98-107) 12/31/17 06:10 Carbon Dioxide 26.9 mEq/L (21.0-31.0) 12/31/17 06:10 Anion Gap 10.7 (7.0-16.0) 12/31/17 06:10 BUN 13 mg/dL (7-25) 12/31/17 06:10 Creatinine 0.8 mg/dL (0.7-1.3) 12/31/17 06:10 Est GFR ( Amer) > 60.0 ml/min (>90) 12/31/17 06:10 Est GFR (Non-Af Amer) > 60.0 ml/min 12/31/17 06:10 BUN/Creatinine Ratio 16.3 12/31/17 06:10 Glucose 77 mg/dL (70-105) 12/31/17 06:10 Whole Bld Lactic Acid 1.43 mmol/L (0.60-1.99) 12/30/17 12:15 Calcium 8.6 mg/dL (8.6-10.3) 12/31/17 06:10 Total Bilirubin 0.4 mg/dL (0.3-1.0) 12/31/17 06:10 AST 12 U/L (13-39) L 12/31/17 06:10 ALT 9 U/L (7-52) 12/31/17 06:10 Alkaline Phosphatase 38 U/L (34-104) 12/31/17 06:10 Creatine Kinase 50 U/L (30-223) 12/30/17 12:15 Troponin I 0.01 ng/mL (0.01-0.05) 12/30/17 12:15 Total Protein 6.4 gm/dL (6.0-8.3) 12/31/17 06:10 Albumin 3.3 gm/dL (4.2-5.5) L 12/31/17 06:10 Globulin 3.1 gm/dL 12/31/17 06:10 Albumin/Globulin Ratio 1.1 (1.0-1.8) 12/31/17 06:10 Triglycerides 84 mg/dL (<150) 12/31/17 06:10 Cholesterol 135 mg/dL (<200) 12/31/17 06:10 LDL Cholesterol Direct 83 mg/dL (75-193) 12/31/17 06:10 HDL Cholesterol 34 mg/dL (23-92) 12/31/17 06:10 Prostate Specific Ag 0.3 ng/mL (0.0-4.0) 12/31/17 06:10 TSH 1.80 uIU/ml (0.34-5.60) 12/31/17 06:10 Urine Source MIDSTREAM 12/30/17 12:15 Urine Color YELLOW 12/30/17 12:15 Urine Clarity CLEAR (CLEAR) 12/30/17 12:15 Urine pH 6.5 (4.6 - 8.0) 12/30/17 12:15 Ur Specific [place] 1.025 (1.005-1.030) 12/30/17 12:15 Urine Protein NEGATIVE mg/dL (NEGATIVE) 12/30/17 12:15 Urine Glucose (UA) NEGATIVE mg/dL (NEGATIVE) 12/30/17 12:15 Urine Ketones NEGATIVE mg/dL (NEGATIVE) 12/30/17 12:15 Urine Blood NEGATIVE (NEGATIVE) 12/30/17 12:15 Urine Nitrate NEGATIVE (NEGATIVE) 12/30/17 12:15 Urine Bilirubin NEGATIVE (NEGATIVE) 12/30/17 12:15 Urine Urobilinogen 0.2 E.U./dL (0.2 - 1.0) 12/30/17 12:15 Ur Leukocyte Esterase NEGATIVE (NEGATIVE) 12/30/17 12:15 Urine RBC 0-2 /hpf (0-5) H 12/30/17 12:15 Urine WBC 2-5 /hpf (0-5) 12/30/17 12:15 Ur Epithelial Cells FEW /lpf (FEW) 12/30/17 12:15 Urine Bacteria FEW /hpf (NONE SEEN) 12/30/17 12:15 Urine Mucus FEW /lpf (FEW) 12/30/17 12:15 Carbamazepine 6.1 ug/ml (4.0-12.0) 12/31/17 05:45 - Physical Exam Vitals and I&O: Vital Signs Temp 96.3 F 01/04/18 07:51 Pulse 60 01/04/18 07:51 Resp 18 01/04/18 07:51 BP 102/64 01/04/18 07:51 Pulse Ox 100 01/04/18 07:51 Intake & Output 01/03/18 01/04/18 01/04/18 18:59 06:59 18:59 Intake Total 1000 900 Balance 1000 900 Weight (lbs) 73.227 kg Intake: Intake, IV Amount 1000 D5-0.45NS 1,000 ml @ 75 1000 mls/hr IV .[id number] [facility] Rx #:[id number] Oral 900 Other: # Voids 2 # Bowel Movements 0 Weight Source Bedscale Active Medications: Current Medications Acetaminophen (Tylenol Extra Strength) 1,000 mg PO Q4HR PRN PRN Reason: Pain (Moderate) Stop: 02/28/18 16:34 Last Admin: 01/01/18 02:24 Dose: 1,000 mg Acetaminophen (Tylenol) 650 mg PO Q4HR PRN PRN Reason: Mild Pain or Fever >101 Stop: 03/01/18 08:22 Albuterol/Ipratropium (Duoneb Neb) 3 ml HHN Q6HRT [facility] Stop: 03/01/18 12:59 Last Admin: 01/04/18 07:03 Dose: 3 ml Bisacodyl (Dulcolax 10 Mg Supp) 10 mg RC DAILY PRN PRN Reason: IF MOM INEFFECTIVE Stop: 03/01/18 08:22 Calcium/Vitamin D (Oscal W/Vitamin D) 1 tab PO DAILY [facility] Stop: 03/01/18 08:59 Last Admin: 01/03/18 08:59 Dose: 1 tab Carbamazepine (Tegretol) 200 mg PO BID [facility]; Protocol Stop: 02/28/18 16:59 Last Admin: 01/03/18 17:12 Dose: 200 mg Divalproex Sodium (Depakote Er) 750 mg PO BID [facility]; Protocol Stop: 03/01/18 08:59 Last Admin: 01/03/18 17:11 Dose: 750 mg Docusate Sodium (Colace) 250 mg PO BID [facility] Stop: 02/28/18 16:59 Last Admin: 01/03/18 17:11 Dose: 250 mg Enoxaparin Sodium (Lovenox) 40 mg SUBQ DAILY [facility] Stop: 03/04/18 08:59 Last Admin: 01/03/18 09:01 Dose: 40 mg Fish Oil ([place] 3) 1,000 mg PO DAILY [facility] Stop: 03/01/18 08:59 Last Admin: 01/03/18 09:00 Dose: 1,000 mg Haloperidol (Haldol) 2.5 mg PO BID [facility]; Protocol Stop: 03/01/18 08:59 Last Admin: 01/03/18 17:11 Dose: 2.5 mg Dextrose/Sodium Chloride (D5-0.45ns) 1,000 mls @ 75 mls/hr IV .[id number] [facility] Stop: 02/28/18 17:16 Last Admin: 01/03/18 22:23 Dose: 75 mls/hr Azithromycin 250 mg/ Sodium (Chloride) 250 mls @ 250 mls/hr IV Q24H [facility] Stop: 03/02/18 15:59 Last Admin: 01/03/18 15:41 Dose: 250 mls/hr Lactobacillus Rhamnosus (Culturelle 15b) 1 each PO DAILY [facility] Stop: 03/04/18 08:59 Last Admin: 01/03/18 09:00 Dose: 1 each Loratadine (Claritin) 10 mg PO DAILY [facility] Stop: 03/01/18 08:59 Last Admin: 01/03/18 08:59 Dose: 10 mg Magnesium Hydroxide (Milk Of Magnesia) 30 ml PO HS PRN PRN Reason: Constipation Stop: 02/28/18 16:40 Mirtazapine (Remeron) 15 mg PO HS [facility]; Protocol Stop: 03/01/18 20:59 Last Admin: 01/03/18 21:08 Dose: 15 mg Miscellaneous (Probiotic Screen) 1 ea MC PRN PRN PRN Reason: PROTOCOL Stop: 03/03/18 10:56 Olanzapine (Zyprexa) 10 mg PO TID [facility]; Protocol Stop: 03/01/18 08:59 Last Admin: 01/03/18 21:08 Dose: 10 mg Pantoprazole Sodium (Protonix) 40 mg PO DAILY [facility] Stop: 03/01/18 08:59 Last Admin: 01/03/18 09:00 Dose: 40 mg Psyllium Hydrophilic Mucilloid (Metamucil) 1 pkt PO BID [facility] Stop: 03/01/18 16:59 Last Admin: 01/03/18 17:11 Dose: 1 pkt Sodium Phosphate (Fleet Enema) 135 ml RC Q48H PRN PRN Reason: IF DULCOLAX INEFFECTIVE Stop: 03/01/18 08:22 General: Alert, Cooperative, No acute distress Cardiovascular: Regular rate, Normal S1, Normal S2 Lungs: Clear to auscultation Abdomen: Bowel sounds, Soft - Procedures Procedures: Procedures Procedure Code Date EGD BIOPSY SINGLE/MULTIPLE 58574 07/16/17 EXCISION OF DUODENUM, ENDO, DIAGN [id number] 07/16/17 EXCISION OF STOMACH, ENDO, DIAGN [id number] 07/16/17 Assessment/Plan - Problem List Patient Problems: All Active Problems WEAKNESS, WEIGHT LOSS, CXR INFILTRATE (Acute) - Assessment Assessment: 57 YO MALE WITH ANOREXIA HX OF CVA IMPROVING AND EATING WELL 1.CONT SUPP CARE
--- NOTE | 2018-01-04 09:14 | Diagnostic Imaging Report ---
Bilateral lower extremity Doppler venous ultrasound exam HISTORY: Pain/swelling Sonographic sector images were obtained through the deep venous systems of both legs. Associated Doppler data was obtained. The exam demonstrates patency of the common femoral, superficial femoral, popliteal, and posterior tibial veins bilaterally. Specifically, no thrombus is seen. There are normal compressibility and augmentation responses. IMPRESSION: Negative exam for deep vein thrombophlebitis.
[2018-01-04] MEDS: Fish Oil 1,000 MG SGL PO SCH (09:27)
[2018-01-04] MEDS: Multivitamin w/ Minerals Tab PO SCH (09:27)
[2018-01-04] MEDS: Calcium Carb/Vit D 500 mg/200 U Tab PO SCH (09:27)
[2018-01-04] MEDS: Lactobacillus Rhamnosus GG 15 Billion CFU CAP.SPRINK PO SCH (09:28)
[2018-01-04] MEDS: Pantoprazole 40 mg/Packet PO SCH (09:29)
[2018-01-04] MEDS: Enoxaparin 40 mg/0.4 mL 0.4mL Syr SUBQ SCH (09:31)
--- NOTE | 2018-01-04 12:04 | Internal Medicine Prog Note ---
Internal Medicine Subjective - Subjective Patient is:: awake, other (no distress) Patient Complaints of:: congestion Per staff patient has:: no adverse event Internal Medicine Objective - Results Result Diagrams: 12/31/17 06:10 12/31/17 06:10 Recent Labs: Laboratory Last Values WBC 4.8 Th/cmm (4.8-10.8) 12/31/17 06:10 RBC 4.00 Mil/cmm (4.30-5.70) L 12/31/17 06:10 Hgb 13.1 gm/dL (12-16) 12/31/17 06:10 Hct 39.2 % (41.0-60) L 12/31/17 06:10 MCV 98.0 fl (80-99) 12/31/17 06:10 MCH 32.7 pg (26.0-30.0) H 12/31/17 06:10 MCHC Differential 33.4 pg (28.0-36.0) 12/31/17 06:10 RDW 13.0 % (11.5-20.0) 12/31/17 06:10 Plt Count 261 Th/cmm (150-400) 12/31/17 06:10 MPV 8.6 fl 12/31/17 06:10 Add Manual Diff YES 12/31/17 06:10 Neutrophils % 62.7 % (40.0-80.0) 12/30/17 12:15 Lymphocytes % 23.7 % (20.0-50.0) 12/30/17 12:15 Monocytes % 7.9 % (2.0-10.0) 12/30/17 12:15 Eosinophils % 5.5 % (0.0-5.0) H 12/30/17 12:15 Basophils % 0.2 % (0.0-2.0) 12/30/17 12:15 Neutrophils (Manual) 42 % (40-80) 12/31/17 06:10 Lymphocytes 43 % (20-50) 12/31/17 06:10 Monocytes 6 % (2-10) 12/31/17 06:10 Eosinophils 9 % (0-5) H 12/31/17 06:10 PT 11.7 SECONDS (9.5-11.5) H 12/31/17 06:10 INR 1.14 (0.5-1.4) 12/31/17 06:10 PTT (Actin FS) 24.6 SECONDS (26.0-38.0) L 12/30/17 12:15 D-Dimer 681 ng/mL (100-400) H 12/31/17 06:10 Sodium 141 mEq/L (136-145) 12/31/17 06:10 Potassium 3.6 mEq/L (3.5-5.1) 12/31/17 06:10 Chloride 107 mEq/L (98-107) 12/31/17 06:10 Carbon Dioxide 26.9 mEq/L (21.0-31.0) 12/31/17 06:10 Anion Gap 10.7 (7.0-16.0) 12/31/17 06:10 BUN 13 mg/dL (7-25) 12/31/17 06:10 Creatinine 0.8 mg/dL (0.7-1.3) 12/31/17 06:10 Est GFR ( Amer) > 60.0 ml/min (>90) 12/31/17 06:10 Est GFR (Non-Af Amer) > 60.0 ml/min 12/31/17 06:10 BUN/Creatinine Ratio 16.3 12/31/17 06:10 Glucose 77 mg/dL (70-105) 12/31/17 06:10 Whole Bld Lactic Acid 1.43 mmol/L (0.60-1.99) 12/30/17 12:15 Calcium 8.6 mg/dL (8.6-10.3) 12/31/17 06:10 Total Bilirubin 0.4 mg/dL (0.3-1.0) 12/31/17 06:10 AST 12 U/L (13-39) L 12/31/17 06:10 ALT 9 U/L (7-52) 12/31/17 06:10 Alkaline Phosphatase 38 U/L (34-104) 12/31/17 06:10 Creatine Kinase 50 U/L (30-223) 12/30/17 12:15 Troponin I 0.01 ng/mL (0.01-0.05) 12/30/17 12:15 Total Protein 6.4 gm/dL (6.0-8.3) 12/31/17 06:10 Albumin 3.3 gm/dL (4.2-5.5) L 12/31/17 06:10 Globulin 3.1 gm/dL 12/31/17 06:10 Albumin/Globulin Ratio 1.1 (1.0-1.8) 12/31/17 06:10 Triglycerides 84 mg/dL (<150) 12/31/17 06:10 Cholesterol 135 mg/dL (<200) 12/31/17 06:10 LDL Cholesterol Direct 83 mg/dL (75-193) 12/31/17 06:10 HDL Cholesterol 34 mg/dL (23-92) 12/31/17 06:10 Prostate Specific Ag 0.3 ng/mL (0.0-4.0) 12/31/17 06:10 TSH 1.80 uIU/ml (0.34-5.60) 12/31/17 06:10 Urine Source MIDSTREAM 12/30/17 12:15 Urine Color YELLOW 12/30/17 12:15 Urine Clarity CLEAR (CLEAR) 12/30/17 12:15 Urine pH 6.5 (4.6 - 8.0) 12/30/17 12:15 Ur Specific [place] 1.025 (1.005-1.030) 12/30/17 12:15 Urine Protein NEGATIVE mg/dL (NEGATIVE) 12/30/17 12:15 Urine Glucose (UA) NEGATIVE mg/dL (NEGATIVE) 12/30/17 12:15 Urine Ketones NEGATIVE mg/dL (NEGATIVE) 12/30/17 12:15 Urine Blood NEGATIVE (NEGATIVE) 12/30/17 12:15 Urine Nitrate NEGATIVE (NEGATIVE) 12/30/17 12:15 Urine Bilirubin NEGATIVE (NEGATIVE) 12/30/17 12:15 Urine Urobilinogen 0.2 E.U./dL (0.2 - 1.0) 12/30/17 12:15 Ur Leukocyte Esterase NEGATIVE (NEGATIVE) 12/30/17 12:15 Urine RBC 0-2 /hpf (0-5) H 12/30/17 12:15 Urine WBC 2-5 /hpf (0-5) 12/30/17 12:15 Ur Epithelial Cells FEW /lpf (FEW) 12/30/17 12:15 Urine Bacteria FEW /hpf (NONE SEEN) 12/30/17 12:15 Urine Mucus FEW /lpf (FEW) 12/30/17 12:15 Carbamazepine 6.1 ug/ml (4.0-12.0) 12/31/17 05:45 - Physical Exam Vitals and I&O: Vital Signs Temp 97.0 F 01/04/18 11:35 Pulse 61 01/04/18 11:35 Resp 18 01/04/18 11:35 BP 109/67 01/04/18 11:35 Pulse Ox 100 01/04/18 11:35 Intake & Output 01/03/18 01/04/18 01/04/18 18:59 06:59 18:59 Intake Total 1000 900 Balance 1000 900 Weight (lbs) 73.227 kg Intake: Intake, IV Amount 1000 D5-0.45NS 1,000 ml @ 75 1000 mls/hr IV .[id number] [facility] Rx #:[id number] Oral 900 Other: # Voids 2 # Bowel Movements 0 Weight Source Bedscale Active Medications: Current Medications Acetaminophen (Tylenol Extra Strength) 1,000 mg PO Q4HR PRN PRN Reason: Pain (Moderate) Stop: 02/28/18 16:34 Last Admin: 01/01/18 02:24 Dose: 1,000 mg Acetaminophen (Tylenol) 650 mg PO Q4HR PRN PRN Reason: Mild Pain or Fever >101 Stop: 03/01/18 08:22 Albuterol/Ipratropium (Duoneb Neb) 3 ml HHN Q6HRT [facility] Stop: 03/01/18 12:59 Last Admin: 01/04/18 07:03 Dose: 3 ml Bisacodyl (Dulcolax 10 Mg Supp) 10 mg RC DAILY PRN PRN Reason: IF MOM INEFFECTIVE Stop: 03/01/18 08:22 Calcium/Vitamin D (Oscal W/Vitamin D) 1 tab PO DAILY [facility] Stop: 03/01/18 08:59 Last Admin: 01/04/18 09:27 Dose: 1 tab Carbamazepine (Tegretol) 200 mg PO BID [facility]; Protocol Stop: 02/28/18 16:59 Last Admin: 01/04/18 09:27 Dose: 200 mg Divalproex Sodium (Depakote Er) 750 mg PO BID [facility]; Protocol Stop: 03/01/18 08:59 Last Admin: 01/04/18 09:29 Dose: 750 mg Docusate Sodium (Colace) 250 mg PO BID [facility] Stop: 02/28/18 16:59 Last Admin: 01/04/18 09:30 Dose: 250 mg Enoxaparin Sodium (Lovenox) 40 mg SUBQ DAILY [facility] Stop: 03/04/18 08:59 Last Admin: 01/04/18 09:31 Dose: 40 mg Fish Oil ([place] 3) 1,000 mg PO DAILY [facility] Stop: 03/01/18 08:59 Last Admin: 01/04/18 09:27 Dose: 1,000 mg Haloperidol (Haldol) 2.5 mg PO BID [facility]; Protocol Stop: 03/01/18 08:59 Last Admin: 01/04/18 09:29 Dose: 2.5 mg Dextrose/Sodium Chloride (D5-0.45ns) 1,000 mls @ 75 mls/hr IV .[id number] [facility] Stop: 02/28/18 17:16 Last Admin: 01/03/18 22:23 Dose: 75 mls/hr Azithromycin 250 mg/ Sodium (Chloride) 250 mls @ 250 mls/hr IV Q24H [facility] Stop: 03/02/18 15:59 Last Admin: 01/03/18 15:41 Dose: 250 mls/hr Lactobacillus Rhamnosus (Culturelle 15b) 1 each PO DAILY [facility] Stop: 03/04/18 08:59 Last Admin: 01/04/18 09:28 Dose: 1 each Loratadine (Claritin) 10 mg PO DAILY [facility] Stop: 03/01/18 08:59 Last Admin: 01/04/18 09:28 Dose: 10 mg Magnesium Hydroxide (Milk Of Magnesia) 30 ml PO HS PRN PRN Reason: Constipation Stop: 02/28/18 16:40 Mirtazapine (Remeron) 15 mg PO HS [facility]; Protocol Stop: 03/01/18 20:59 Last Admin: 01/03/18 21:08 Dose: 15 mg Miscellaneous (Probiotic Screen) 1 ea MC PRN PRN PRN Reason: PROTOCOL Stop: 03/03/18 10:56 Olanzapine (Zyprexa) 10 mg PO TID [facility]; Protocol Stop: 03/01/18 08:59 Last Admin: 01/04/18 09:28 Dose: 10 mg Pantoprazole Sodium (Protonix) 40 mg PO DAILY [facility] Stop: 03/01/18 08:59 Last Admin: 01/04/18 09:29 Dose: 40 mg Psyllium Hydrophilic Mucilloid (Metamucil) 1 pkt PO BID [facility] Stop: 03/01/18 16:59 Last Admin: 01/04/18 09:30 Dose: 1 pkt Sodium Phosphate (Fleet Enema) 135 ml RC Q48H PRN PRN Reason: IF DULCOLAX INEFFECTIVE Stop: 03/01/18 08:22 General: alert HEENT: NC/AT Neck: Supple Lungs: congested, no CTAB Abdomen: soft, non-tender Extremities: clear - Procedures Procedures: Procedures Procedure Code Date EGD BIOPSY SINGLE/MULTIPLE 37133 07/16/17 EXCISION OF DUODENUM, ENDO, DIAGN [id number] 07/16/17 EXCISION OF STOMACH, ENDO, DIAGN [id number] 07/16/17 Internal Medicine Assmt/Plan - Assessment Assessment: fever weakness cough congestion pneumonia sepsis psychosis - Plan Plan: as per order sheet Nutritional Asmnt/Malnutr-PDOC - Dietary Evaluation Malnutrition Findings (Please click <Entered> for more info): Nutritional Asmnt/Malnutrition Start: 12/31/17 14: 17 Text: Status: Complete Freq: Protocol: Document 12/31/17 14:17 DENISA (Rec: 12/31/17 14:24 DENISA MCGEE) Nutritional Asmnt/Malnutrition Patient General Information Nutritional Screening High Risk Consult Diagnosis pneumonia, sepsis Pertinent Medical Hx/Surgical Hx HTN, seizures, dementia, depression, schizophrenia Subjective Information Received diet consult for wt loss. Per SNF nursing staff, pt is eating well, but losing wt. Pt laying in bed at time of visit. Pt's confused and speech unclear; unable to communicate. Per RN, pt finished 60% of breakfast today, appeared good appetite. Current Diet Order/ Nutrition Support [facility] soft chopped; Ensure Enlive BID Pertinent Medications dulcolax, oscal w/ Vit D, D5-0 .45ns, colace, omega 3, MOM, protonix, piperacilin Pertinent Labs 12/30: Alb 3.9 12/31: Alb 3.3 Nutritional Hx/Data Height 1.73 m Height (Calculated Centimeters) 172.7 Current Weight (lbs) 73.936 kg Weight (Calculated Kilograms) 73.9 Weight (Calculated Grams) 58322.6 [place] Body Weight 154 lb Body Mass Index (BMI) 24.7 Weight Status Approriate GI Symptoms GI Symptoms None Last BM none noted Difficult in: None Food Allergies No Skin Integrity/Comment: olya, doreen 14 Estimated Nutritional Goals BEE in Kcals: Using Current wt Calories/Kcals/Kg 30-35 Kcals Calculated 0731-3389 Protein: Using Current wt Protein g/k.5 Protein Calculated 111g Fluid: ml 1081-4239 (1 ml/kcal) Nutritional Problem 1. Problem Problem increased energy and protein needs Etiology healing for pneumonia and sepsis Signs/Symptoms: estimated 0106-5164 kcals and 111 g protein for pt weighing 74 kg Malnutrition Alert Is there a minimum of two criteria No selected? Query Text:Check all the applicable criteria. A minimum of two criteria are recommended for diagnosis of either severe or non-severe malnutrition. Malnutrition Related to Morbid Obesity Malnutrition related to morbid obesity No Intervention/Recommendation Comments 1. Continue with [facility] soft chopped diet as order and Ensure Enlive BID, which will meet 100% of nutritional needs . Nurses to assist pt with meals and encourage eating. 2. Monitor PO intake, wt, labs and skin integrity 3. F/U as moderate risk in 3-5 days, 01/03-01/05; PO check 01/02 Expected Outcomes/Goals Expected Outcomes/Goals 1. PO intake at least 75% of all meals. 2. Wt stability, skin to remain intact, labs to approach normal limits Reviewed by Pari Owen RD
--- NOTE | 2018-01-04 13:56 | Progress Notes ---
DATE: 01/04/2018 Case was discussed with staff of the patient, reviewed records. The patient was able to sleep yesterday. The staff made sure that he is taking his medication. The patient today still unable to pass a meaningful conversation. He continues to isolate himself. He slept well. No side effects with the medication, no sedation, no nausea. Thank you very much for allowing me to participate in the care of this most interesting gentleman. Dr. Oropeza will follow up with him tomorrow. JOB# [id number]
[2018-01-04] MEDS: D5-0.45NS 1,000 ML IV SCH (14:50)
[2018-01-04] MEDS: Azithromycin 250 MG in Sodium Chloride 0.9% 250 ML IV SCH (15:40)
[2018-01-04] MEDS: Acetaminophen 500 MG TAB PO PRN (20:35)
[2018-01-05] MEDS: Albuterol/Ipratropium Neb 3 ML AERS HHN SCH ×2 (01:46→07:09)
[2018-01-05] MEDS: Pantoprazole 40 mg/Packet PO SCH (08:20)
[2018-01-05] MEDS: Fish Oil 1,000 MG SGL PO SCH (08:22)
[2018-01-05] MEDS: Lactobacillus Rhamnosus GG 15 Billion CFU CAP.SPRINK PO SCH (08:22)
[2018-01-05] MEDS: Multivitamin w/ Minerals Tab PO SCH (08:23)
[2018-01-05] MEDS: Calcium Carb/Vit D 500 mg/200 U Tab PO SCH (08:23)
[2018-01-05] MEDS: Enoxaparin 40 mg/0.4 mL 0.4mL Syr SUBQ SCH (08:24)
--- NOTE | 2018-01-05 19:33 | Consultation ---
DATE OF CONSULTATION: 01/05/2018 NEUROLOGY CONSULTATION HISTORY OF PRESENT ILLNESS: The patient is a 57-year-old male today admitted with complaints of fever and congestion. The patient is feeling better now. Questionable pneumonia. The patient here to have some drooling, seems to be better. PAST MEDICAL HISTORY: The patient has a previous surgery done on the right side of the head. The patient has history of seizure on medication, dementia, and hypertension. Schizophrenia and depression. MEDICATIONS: The patient Protonix, Zyprexa 10 mg t.i.d., Remeron, haloperidol p.r.n., Lovenox, Depakote 750 b.i.d., Tegretol 200 b.i.d. REVIEW OF SYSTEMS: The patient's right eye deviated laterally. Craniotomy defect right side of the scalp. Dysarthria. Confusion. General weakness, unsteadiness. No chest pain, no shortness of breath. PHYSICAL EXAMINATION: VITAL SIGNS: Temperature 98.2, blood pressure 110/68, pulse is 64. NECK: Supple, no bruits. HEART: Sounds S1, S2. LUNGS: Clear. NEUROLOGIC: The patient is awake, alert. Dysarthria. EYES: The right is deviated laterally, would not come down medially, probably from the previous surgery. Pupils are about 3 mm, reactive. No marked facial paralysis. The patient will lift both arms up. Increased tone. We will lift both legs up. Increased tone. Reflexes 1+. INVESTIGATIONS: CT scan of the head, no acute process. Extensive surgical changes, right temporoparietal regions. Encephalomalacia right temporoparietal regions. Also, in the right occipital area. Right cerebellar arachnoid cyst. LABORATORY DATA: WBC is 4.8, hemoglobin 13.1, platelets normal. Sodium, potassium okay. TSH okay. ASSESSMENT: 1. Some drooling seems to be better, probably medication effect. No acute stroke. 2. History of seizures, stable. 3. Schizophrenia. 4. Dementia. Previous history of intracranial surgery, but no acute process. JOB# [id number]
== END 2018-01-05 10:25 | DRG 871 ==
LOC: ER 11:52 → MSI 14:48 → TELE 12-31 14:42
PROVIDERS: ADMIT Internal Medicine; ATTEND Internal Medicine
DX: A41.9 Sepsis, unspecified organism (principal); J18.9 Pneumonia, unspecified organism; R65.21 Severe sepsis with septic shock; F29 Unspecified psychosis not due to a substance or known physiological condition; I10 Essential (primary) hypertension; F03.90 Unspecified dementia, unspecified severity, without behavioral disturbance, psychotic disturbance, mood disturbance, and anxiety; F20.9 Schizophrenia, unspecified; F41.9 Anxiety disorder, unspecified; R63.4 Abnormal weight loss; R63.0 Anorexia; F31.9 Bipolar disorder, unspecified; G40.909 Epilepsy, unspecified, not intractable, without status epilepticus; Z87.891 Personal history of nicotine dependence; Z86.73 Personal history of transient ischemic attack (TIA), and cerebral infarction without residual deficits; Z68.24 Body mass index [BMI] 24.0-24.9, adult; Z74.01 Bed confinement status; Z82.49 Family history of ischemic heart disease and other diseases of the circulatory system
CPT/HCPCS: 36415-UA; 70450-TC; 71045-TC; 80053-TC; 80061-TC; 80156-TC; 81001-TC; 82550-TC; 83036-90; 83605; 84153-90; 84443-TC; 84484-TC; 85007-TC; 85025-TC; 85379-TC; 85610-TC; 85730-TC; 93005; 93970-TC-50; 94640; 94760; J0456; J1650; J1956; J2543; X3401; Z7610

== ENCOUNTER 2018-06-23 11:14 | Emergency (ER) | payer OTHER, MEDICAID ==
[2018-06-23] MEDS ORDERED: Levofloxacin 500mg/100mL 500 MG/100 ML BAG IV ONE ×2 (12:39→13:39)
--- NOTE | 2018-06-23 12:39 | ED Physician Chart ---
ED Chief Complaint/HPI - Patient Information Date Seen:: 06/23/18 Time Seen:: 11:25 Chief Complaint:: Fever History of Present Illness:: onset x 3 days of fever, cough, congestion, and dyspnea; no report of trauma, H/ As, S/T, neck pain, C/P, Abd. pain, A/N/V/D/C, chills, or urinary s/s Allergies:: Allergies Allergy/AdvReac Type Severity Reaction Status Date / Time No Known Allergies Allergy Verified 06/23/18 11:20 Vitals:: Vital Signs - 8 hr 06/23/18 11:24 Temp 100.2 F HR 108 RR 18 BP 131/76 O2 Sat % 93 Historian:: Patient, EMS Review:: Nurse's Note Reviewed, Old Chart Reviewed, EMS run form Reviewed ED Review of Systems - Review of Systems General/Constitutional: Fever, No chills, No weight loss, No weakness, No diaphoresis, No edema, No loss of appetite Skin: No skin lesions, No rash, No bruising Head: No headache, No light-headedness Eyes: No loss of vision, No pain, No diplopia ENT: No earache, Nasal drainage, No sore throat, No tinnitus Neck: No neck pain, No swelling, No thyromegaly, No stiffness, No mass noted Cardio Vascular: No chest pain, No palpitations, No PND, No orthopnea, No edema Pulmonary: SOB, Cough, No sputum, No wheezing GI: No nausea, No vomiting, No diarrhea, No pain, No melena, No hematochezia, No constipation, No hematemesis G/U: No dysuria, No frequency, No hematuria, No nacturia Musculoskeletal: No bone or joint pain, No back pain, No muscle pain Endocrine: No polyuria, No polydipsia Psychiatric: Prior psych history, No depression, Anxiety, No suicidal ideation, No homicidal ideation, No auditory hallucination, No visual hallucination Hematopoietic: No bruising, No lymphadenopathy Allergic/Immuno: No urticaria, No angioedema Neurological: No syncope, No focal symptoms, No weakness, No paresthesia, No headache, Seizure, No dizziness, No confusion, No vertigo ED Past Medical History - Past Medical History Obtainable: Yes Past Medical History: Asthma/COPD, Dyslipidemia, Seizures Family History: HTN Social History: Non Smoker, No Alcohol, No Drug Use, Single, Care Facility Surgical History: None Psychiatricy History: Schizophrenia, Bipolar Medication: Reviewed Family Medical History - Family Member Mother History Unknown: Yes ED Physical Exam - Physical Examination General/Constitutional: Awake, Well-developed, well-nourished, Alert, No distress, GCS 15, Non-toxic appearing, Ambulatory Head: Atraumatic Eyes: Lids, conjuctiva normal, PERRL, EOMI Skin: Nl inspection, No rash, No skin lesions, No ecchymosis, Well hydrated, No lymphadenopathy ENMT: External ears, nose nl, TM canals nl, Nasal exam nl, Lips, teeth, gums nl , Oropharynx nl, Tonsils nl Neck: Nontender, Full ROM w/o pain, No JVD, No nuchal rigidity, No bruit, No mass, No stridor Other Neck comments:: supple; no meningeal signs Respiratory: Nl effort/Exclusion Other Respiratory comments:: Lungs: + Rales and Rhonchi Cardio Vascular: RRR, No murmur, gallop, rubs, NL S1 S2, Carotid/Femoral/Distal pulses equal bilaterally GI: No tenderness/rebounding/guarding, No organomegaly, No hernia, Normal BS's, Nondistended, No mass/bruits, No McBurney tenderness Other GI comments:: no pulsatile masses : No CVA tenderness Extremities: No tenderness or effusion, Full ROM, normal strength in all extremities, No edema, Normal digits & nails Neuro/Psych: Alert/oriented, DTR's symmetric, Normal sensory exam, Normal motor strength, Judgement/insight normal, Mood normal, Normal gait, No focal deficits Misc: Normal back, No paraspinal tenderness ED Labs/Radiology/EKG Results - Lab Results Comments:: Reviewed - Radiology Results Comments:: CXR: + RLL Infiltrate - EKG Interpretations EKG Time:: 12:18 Rate & Rhythm: 101; ST Comments:: non-specific st-t changes ED Septic Shock - . Is Septic Shock (SBP<90, OR Lactate>4 mmol\L) present?: No - <6hrs of presentation: Vital Signs: Vital Signs - 8 hr 06/23/18 11:24 Temp 100.2 F HR 108 RR 18 BP 131/76 O2 Sat % 93 ED Reassessment (Disposition) - Reassessment Reassessment Condition:: Improved - Diagnosis Diagnosis:: Fever; Cough; Pneumonia; Sepsis; Dehydration; Tachycardia - Aftercare/Follow up Instructions Aftercare/Follow-Up Instructions:: Counseled pt regarding lab results/diagnosis & need follow up, Counseled pt & family regarding lab results/diagnosis & need follow up - Patient Disposition Discharge/Transfer:: Acute Care w/in this hosp Accepting Physician:: Dr. Bourne Time Called:: 1300 Time Responded:: 13:00 Admitted to:: Telemetry Spoke to:: Dr. Bourne Admitting Medical Physician:: Dr. Bourne Condition at Disposition:: Stable, Improved
--- NOTE | 2018-06-23 12:42 | Diagnostic Imaging Report ---
CHEST X-RAY: AP view INDICATION: pain COMPARISON: 12/30/2017 FINDINGS: Increased interstitial lung markings are noted. There Is no focal consolidation or pleural effusions The heart is normal in size. Degenerative changes of the spine are noted. IMPRESSION: Increased interstitial lung markings probably due to chronic lung changes. Note, faint infiltrate of the right base cannot be completely excluded.
[2018-06-23 12:54] LABS: % BASOPHILS 0.2 % (0.0-2.0); % EOSINOPHILS 0.1 % (0.0-5.0); % LYMPHOCYTES 15.4 % (20.0-50.0); % NEUTROPHILS 72.3 % (40.0-80.0); HEMATOCRIT 38.2 % (41.0-60); HEMOGLOBIN 12.6 gm/dL (12-16); LYMPHOCYTE ABSOLUTE 1.3 Th/cmm (1.5-3.0); MEAN CELL VOLUME 96.9 fl (80-99); MEAN CORPUSCULAR HEMOGLOBIN 31.8 pg (26.0-30.0); MEAN CORPUSCULAR HGB CONC 32.9 pg (28.0-36.0); MEAN PLATELET VOLUME 8.9 fl; NEUTROPHILE ABSOLUTE 5.9 Th/cmm (1.8-8.0); PLATELET COUNT 227 Th/cmm (150-400); RED BLOOD COUNT 3.94 Mil/cmm (4.30-5.70); WHITE BLOOD COUNT 8.2 Th/cmm (4.8-10.8)
[2018-06-23 13:09] LABS: INR 1.08 (0.5-1.4); PROTHROMBIN TIME (TEST) 11.2 SECONDS (9.5-11.5)
[2018-06-23 13:10] LABS: ALBUMIN 3.4 gm/dL (4.2-5.5); ALKALINE PHOSPHATASE 40 U/L (34-104); ANION GAP 12.9 (7.0-16.0); BILIRUBIN,TOTAL 0.3 mg/dL (0.3-1.0); BUN - UREA NITROGEN 18 mg/dL (7-25); CALCIUM SERUM 8.7 mg/dL (8.6-10.3); CARBON DIOXIDE 22.7 mEq/L (21.0-31.0); CHLORIDE 104 mEq/L (98-107); CREATININE - SERUM 0.7 mg/dL (0.7-1.3); CREATININE KINASE 538 U/L (30-223); GFR AFRICAN-AMERICAN > 60.0 ml/min (>90); GFR NON AFRICAN-AMERICAN > 60.0 ml/min; GLUCOSE 110 mg/dL (70-105); POTASSIUM SERUM 3.6 mEq/L (3.5-5.1); SGOT 40 U/L (13-39); SGPT/ALT 25 U/L (7-52); SODIUM SERUM 136 mEq/L (136-145); TOTAL PROTEIN,SERUM 6.9 gm/dL (6.0-8.3)
[2018-06-23 13:43] LABS: TROP I 0.01 ng/mL (0.01-0.05)
== END 2018-06-23 16:30 | disposition short-term general hospital (02) ==
LOC: ER 11:14
DX: A41.9 Sepsis, unspecified organism (principal); J18.9 Pneumonia, unspecified organism; E86.0 Dehydration; R00.0 Tachycardia, unspecified; J44.9 Chronic obstructive pulmonary disease, unspecified; E78.5 Hyperlipidemia, unspecified; F31.9 Bipolar disorder, unspecified; F20.9 Schizophrenia, unspecified
CPT/HCPCS: 99285; 96365; 93005; 71045; 84484; 36415; 83605; 85025; 85610; 85730; 82550; 82553; 80053; 87081; 87040 ×2; J1956; Z7610